=== PATIENT | female | born 1940 | race Caucasian/White ===

== ENCOUNTER 2016-06-21 21:06 | Inpatient (IN) | payer OTHER, BC ==
[2016-06-21 21:20] VITALS: BMI 27.8
--- NOTE | 2016-06-21 22:06 | PDOC ---
History of Present Illness - General History Source: Patient Exam Limitations: No Limitations - History of Present Illness Initial Comments: 06/21/16 22:44 The patient is a 76-year-old female with a significant past medical history of spinal stenosis, [place] (40 years ago), and presents to the emergency department with lower abdominal pain and nausea since this morning. She reports that the abdominal pain is located in the suprapubic region, and radiates to her lower back. She reports that she is unable to keep anything down due to the nausea and she feels bloated. She states that she took Aleve with no significant relief. She states she had 3 bowel movements today. The patient denies chest pain, shortness of breath, headache and dizziness. The patient denies fever, chills, vomit, diarrhea and constipation. The patient denies dysuria, frequency, urgency and hematuria. Allergies: NKDA Past surgical history: hysterectomy (1992), cholecystectomy Social History: Smoker, current status unknown PCP: Dr. Pisano Acls Nurse: Dr. Noland Associate Java Developer: Dr. Gerber <Tammy Mayer - Last Filed: 06/22/16 02:51> <Lacey Richter - Last Filed: 06/23/16 06:25> - General Chief Complaint: Pain, Acute Stated Complaint: ABDOMINAL/BACK PAIN Time Seen by Provider: 06/21/16 21:35 Past History <Tammy Mayer - Last Filed: 06/22/16 02:51> - Past Medical History Anemia: No Asthma: Yes (NO RECENT ATTACK) Cancer: No Cardiac Disorders: Yes (ASHD; [place]) CVA: No COPD: No CHF: No Dementia: No Diabetes: No GI Disorders: Yes (DIVERTICULOSIS; HIATAL HERNIA; GASTRITIS) Disorders: No HTN: Yes Hypercholesterolemia: Yes Liver Disease: No Seizures: No Thyroid Disease: No Other medical history: spinal stenosis - Surgical History Abdominal Surgery: No Appendectomy: No Cardiac Surgery: No Cholecystectomy: Yes Lung Surgery: No Neurologic Surgery: No Orthopedic Surgery: No - Psycho/Social/Smoking Cessation Hx Suicidal Ideation: No Smoking History: Smoker current status UNK Have you smoked in the past 12 months: No Hx Alcohol Use: Yes (SOCIALLY) Drug/Substance Use Hx: No Substance Use Type: Alcohol Hx Substance Use Treatment: No <Lacey Richter - Last Filed: 06/23/16 06:25> - Past Medical History Allergies/Adverse Reactions: Allergies Allergy/AdvReac Type Severity Reaction Status Date / Time No Known Allergies Allergy Verified 06/21/16 21:10 Home Medications: Ambulatory Orders Ezetimibe [Zetia] 10 mg PO HS 01/14/14 Montelukast Na [Singulair -] 10 mg PO HS 01/14/14 Multivitamins [Multivit ([facility] Formulary)] 1 tab PO DAILY 01/14/14 Naproxen Sodium/P-Ephed HCl [Aleve Cold and Sinus Caplet] 1 tab PO PRN PRN 01/14 Valsartan [Diovan] 80 mg PO DAILY 01/14/14 Ranitidine [Zantac -] 150 mg PO BID 12/06/14 Timolol [Betimol] 2 drop OU BID 06/21/16 Review of Systems - Review of Systems Able to Perform ROS?: Yes Comments:: 06/21/16 22:44 CONSTITUTIONAL: Absent: fever, chills, diaphoresis, generalized weakness, malaise, loss of appetite HEENT: Absent: rhinorrhea, nasal congestion, throat pain, throat swelling, difficulty swallowing, mouth swelling, ear pain, eye pain, visual changes CARDIOVASCULAR: Absent: chest pain, syncope, palpitations, irregular heart rate, lightheadedness , peripheral edema RESPIRATORY: Absent: cough, shortness of breath, dyspnea with exertion, orthopnea, wheezing, stridor, hemoptysis GASTROINTESTINAL: Present: (+) abdominal pain, (+) nausea Absent: abdominal distension, vomiting, diarrhea, constipation, melena, hematochezia GENITOURINARY: Absent: dysuria, frequency, urgency, hesitancy, hematuria, flank pain, genital pain MUSCULOSKELETAL: Present: (+) back pain Absent: myalgia, arthralgia, joint swelling SKIN: Absent: rash, itching, pallor HEMATOLOGIC/IMMUNOLOGIC: Absent: easy bleeding, easy bruising, lymphadenopathy, frequent infections ENDOCRINE: Absent: unexplained weight gain, unexplained weight loss, heat intolerance, cold intolerance NEUROLOGIC: Absent: headache, focal weakness or paresthesias, dizziness, unsteady gait, seizure, mental status changes, bladder or bowel incontinence PSYCHIATRIC: Absent: anxiety, depression, suicidal or homicidal ideation, hallucinations. <Tammy Mayer - Last Filed: 06/22/16 02:51> *Physical Exam - Vital Signs Last Vital Signs Temp Pulse Resp BP Pulse Ox 99 F 104 H 20 140/76 99 06/21/16 21:18 06/21/16 21:18 06/21/16 21:18 06/21/16 21:18 06/21/16 21:18 - Physical Exam Comments: 06/21/16 22:44 GENERAL: Well developed, well nourished. Awake and alert. No acute distress. HEENT: Normocephalic, atraumatic. PERRLA, EOMI. No conjunctival pallor. Sclera are non- icteric. Moist mucous membranes. Oropharynx is clear. NECK: Supple. Full ROM. No JVD. Carotid pulses 2+ and symmetric, without bruits. No thyromegaly. No lymphadenopathy. CARDIOVASCULAR: Regular rate and rhythm. No murmurs, rubs, or gallops. Distal pulses are 2+ and symmetric. PULMONARY: No evidence of respiratory distress. Lungs clear to auscultation bilaterally. No wheezing, rales or rhonchi. ABDOMINAL: (+) Tenderness to palpation, mild rebound and guarding. Soft. Non-distended. No organomegaly. Normoactive bowel sounds. MUSCULOSKELETAL Normal range of motion at all joints. No bony deformities or tenderness. No CVA tenderness. EXTREMITIES: No cyanosis. No clubbing. No edema. No calf tenderness. SKIN: Warm and dry. Normal capillary refill. No rashes. No jaundice. NEUROLOGICAL: Alert, awake, appropriate. Cranial nerves 2-12 intact. No deficits to light touch and temperature in face, upper extremities and lower extremities. No motor deficits in the in face, upper extremities and lower extremities. Normoreflexic in the upper and lower extremities. Normal speech. Toes are down- going bilaterally. Gait is normal without ataxia. PSYCHIATRIC: Cooperative. Good eye contact. Appropriate mood and affect. <Tammy Mayer - Last Filed: 06/22/16 02:51> - Vital Signs Last Vital Signs Temp Pulse Resp BP Pulse Ox 99 F 104 H 20 140/76 99 06/21/16 21:18 06/21/16 21:18 06/21/16 21:18 06/21/16 21:18 06/21/16 21:18 <Lacey Richter - Last Filed: 06/23/16 06:25> ED Treatment Course - LABORATORY CBC & Chemistry Diagram: 06/21/16 22:11 06/21/16 22:11 - ADDITIONAL ORDERS Additional order review: Laboratory Results 06/21/16 22:11 Urine Color Dkyellow Urine Appearance Slcloudy Urine pH 5.0 Ur Specific [place] 1.025 Urine Protein 1+ H Urine Glucose (UA) Negative Urine Ketones Trace H Urine Blood Negative Urine Nitrite Negative Urine Bilirubin Negative Urine Urobilinogen Negative Ur Leukocyte Esterase 1+ H Urine RBC 2 Urine WBC 7 Ur Epithelial Cells Many Urine Bacteria Rare Urine Mucus Moderate 06/21/16 22:11 RBC 4.28 MCV 97.7 H MCHC 34.2 RDW 13.6 MPV 8.3 Neutrophils % 93.6 H Lymphocytes % 2.8 L Monocytes % 3.0 L Eosinophils % 0.1 Basophils % 0.5 <Tammy Mayer - Last Filed: 06/22/16 02:51> - LABORATORY CBC & Chemistry Diagram: 06/21/16 22:11 06/21/16 22:11 <Lcaey Richter - Last Filed: 06/23/16 06:25> Medical Decision Making - Medical Decision Making 06/23/16 06:18 Pt comes with abdominal pain. She points to her lower abdomen, but she has diffuse pain. She jumps when I press on her upper quadrants. However, pt is afebrile and she is minimizing her symptoms, and she wants to go home, because she thinks that this is just the flu. However she is not coughing. Pt is able to ambulate in her room, but she is tender diffusely in the abdomen. She is jonking and laughing with me the scribe, the nurse and her daughtercarmen, who forced her to come to the ER for evaluation. I ordered a CT scan with IV contrast, however, pt cannotdrink the contrast. Her LFTs are elevated, so IU ordered a sonogram of the RUQ. Her sono is normal. Pt's CT scan was ordered with IV contrast, as she is not drinking the oral contrast. CT scan consistent with Sigmoid perforation/sigmoiditis. I spoke to the imaging concrete products dispatcher radiologist, and I notified ot's doctor MAREK pisano, who requested Dr Olivas of surgery to see the patient. I spoke to Dr. Olivas, who accepts the patient, even though he is not concrete products dispatcher. Pt was given antibiotics and pain meds and she was sent to a med surg bed. 06/23/16 06:24 Patient Name: Elizabeth Lopez THIS IS A PRELIMINARY REPORT FROM IMAGING PRODUCTION OPERATIONS INSPECTOR IMAGES: 42 EXAM DATE AND TIME: 2016-06-21 23:51:17.0 EXAM: ULTRASOUND ABDOMEN INCOMPLETE Heterogeneous liver echotexture. Gallbladder not seen, consistent with history of cholecystectomy in 2007. Unremarkable right kidney and visualized aorta. Pancreas not well seen. No biliary dilatation. THIS DOCUMENT HAS BEEN ELECTRONICALLY SIGNED 06/23/16 06:25 EXAM DATE AND TIME: 2016-06-22 01:41:57.0 EXAM: CT ABDOMEN AND PELVIS WITH CONTRAST Stranding in lower pelvis, including around sigmoid colon which contains many diverticula. 4.2 cm cuvilinear collection of air and fluid more superiorly in left lower quadrant. Findings suspicious for acute sigmoid diverticulitis complicated by perforation. (Alternatively, if hysterectomy has been performed recently, the pelvic fat stranding and free air/fluid could represent postoperative changes.) No bowel obstruction. Normal appendix. Unremarkable pancreas. Caliectasis and subcentimeter cortical hypodensity left kidney. Cholecystectomy. Minimal to moderate intrahepatic biliary dilatation, greater than usuall seen with physiologic postoperative biliary prominence. Tiny umbilical hernia containing fat. THIS DOCUMENT HAS BEEN ELECTRONICALLY SIGNED Diana Jenkins M.D. <Lacey Richter - Last Filed: 06/23/16 06:25> *DC/Admit/Observation/Transfer - Attestations Scribe Attestion: 06/21/16 22:45 Documentation prepared by Tammy Mayer, acting as director medical for Lacey Richter MD. <Tammy Mayer - Last Filed: 06/22/16 02:51> - Discharge Dispostion Admit: Yes <Lacey Richter - Last Filed: 06/23/16 06:25> Diagnosis at time of Disposition: Perforated sigmoid colon, Sigmoiditis - Referrals
[2016-06-21 22:23] LABS: MCH 33.4 pg (25.7-33.7); MCHC 34.2 g/dl (32.0-36.0); MEAN CELL VOLUME 97.7 fl (80-96); MEAN PLT VOLUME 8.3 fl (7.5-11.1); PLATELET COUNT 225 K/MM3 (134-434); RDW 13.6 % (11.6-15.6); URINE APPEARANCE SLCLOUDY; URINE BILIRUBIN NEGATIVE (NEGATIVE); URINE BLOOD NEGATIVE (NEGATIVE); URINE COLOR DKYELLOW; URINE GLUCOSE (UA) NEGATIVE (NEGATIVE); URINE KETONE TRACE (NEGATIVE); URINE NITRITE NEGATIVE (NEGATIVE); URINE UROBILINOGEN NEGATIVE E.U./dl (0.2-1.0); WHITE BLOOD COUNT 14.2 K/mm3 (4.0-10.0)
[2016-06-21] MEDS ORDERED: METOCLOPRAMIDE HCL INJECTION 10 MG/2 ML VIAL IVPB ONE (22:32)
[2016-06-21 22:33] LABS: URINE LEUK ESTERASE 1+ (NEGATIVE); URINE PROTEIN 1+ (NEGATIVE)
[2016-06-21 22:35] LABS: URINE BACTERIA RARE /hpf (NONE SEEN); URINE MUCUS MODERATE; URINE RBC 2 /hpf (0-3); URINE WBC 7 /hpf (3-5)
[2016-06-21] MEDS ORDERED: SODIUM CHLORIDE 0.9% 500 ML INFUS.BAG IV ONE (22:39)
[2016-06-21] MEDS ORDERED: morphine CARPU-JECT 2 MG/1 ML DISP.SYRIN IVPUSH ONE ×2 (22:44→23:37)
[2016-06-21] MEDS ORDERED: METOCLOPRAMIDE HCL INJECTION 10 MG/2 ML VIAL ONE (22:45)
[2016-06-21] MEDS ORDERED: ONDANSETRON 4 MG/2 ML VIAL ONE (22:45)
[2016-06-21] MEDS: ONDANSETRON 4 MG/2 ML VIAL IVPB PRN (22:50)
[2016-06-21 22:54] LABS: ALBUMIN 3.7 g/dl (3.4-5.0); ALK PHOS 119 U/L (45-117); ANION GAP 10 (8-16); BILIRUBIN,TOTAL 0.9 mg/dL (0.2-1.0); CALCIUM 8.7 mg/dL (8.5-10.1); CO2 25 mmol/L (21-32); CREATININE 0.8 mg/dL (0.55-1.02); GLUCOSE,RANDOM 115 mg/dL (74-106); SGPT/ALT 112 U/L (12-78); TOT PROT 6.5 g/dl (6.4-8.2)
[2016-06-21 22:58] LABS: SGOT/AST 173 U/L (15-37)
[2016-06-21] MEDS ORDERED: FAMOTIDINE 20 MG/50 ML IVPB 50 ML IVPB ONE ×2 (23:02→23:07)
[2016-06-21] MEDS ORDERED: MAG HYDROX/AL HYDROX/SIMETH 30 ML UNIT-DOSE CUP PO ONE (23:03)
[2016-06-21 23:05] LABS: INR 1.04 (0.82-1.09); PROTHROMBIN TIME (PATIENT) 11.4 SEC (9.98-11.88)
[2016-06-21] MEDS ORDERED: morphine CARPU-JECT 2 MG/1 ML DISP.SYRIN ONE (23:07)
[2016-06-21 23:17] LABS: SMUDGE CELLS MANY
[2016-06-22] MEDS ORDERED: morphine CARPU-JECT 2 MG/1 ML DISP.SYRIN ONE (00:50)
[2016-06-22] MEDS ORDERED: ONDANSETRON 4 MG/2 ML VIAL ONE (00:50)
[2016-06-22] MEDS: ONDANSETRON 4 MG/2 ML VIAL IVPB PRN ×4 (00:55→15:13)
[2016-06-22] MEDS ORDERED: PIPERACILLIN/TAZOB 3.375 GM 3.375 GM in DEXTROSE 5%-WATER - 50 ML IVPB ONE (02:34)
[2016-06-22] MEDS ORDERED: METRONIDAZOLE 500 MG PREMIXED 100 ML IVPB ONE (02:35)
[2016-06-22] MEDS ORDERED: ONDANSETRON 4 MG/2 ML VIAL IVPB PRN (02:49)
[2016-06-22] MEDS ORDERED: PIPERACILLIN/TAZOB 3.375 GM 50 ML IVPB ONE (03:07)
[2016-06-22] MEDS ORDERED: morphine CARPU-JECT 2 MG/1 ML DISP.SYRIN IVPUSH ONE (03:08)
[2016-06-22] MEDS: SODIUM CHLORIDE 1,000 ML IV SCH (04:30)
[2016-06-22] MEDS: morphine CARPU-JECT 2 MG/1 ML DISP.SYRIN IVPUSH PRN ×3 (06:46→15:13)
[2016-06-22] MEDS ORDERED: PIPERACILLIN/TAZOB 3.375 GM/50 ML PRE-DOCKED IVPB ONE (08:30)
[2016-06-22] MEDS: PANTOPRAZOLE SODIUM 40 MG/100 ML PRE-DOCKED IVPB SCH (09:54)
--- NOTE | 2016-06-22 09:56 | EKG ---
Test Reason : Blood Pressure : / mmHG Vent. Rate : 084 BPM Atrial Rate : 084 BPM P-R Int : 170 ms QRS Dur : 084 ms QT Int : 362 ms P-R-T Axes : 072 -38 044 degrees QTc Int : 427 ms NORMAL SINUS RHYTHM WITH SINUS ARRHYTHMIA LEFT AXIS DEVIATION PULMONARY DISEASE PATTERN NONSPECIFIC T WAVE ABNORMALITY ABNORMAL ECG WHEN COMPARED WITH ECG OF 24-JAN-2003 21:32, NONSPECIFIC T WAVE ABNORMALITY NO LONGER EVIDENT IN INFERIOR LEADS Confirmed by SHARATH JONES MD ([id number]) on 06/22/2016 9:56:12 AM Referred By: Confirmed By:SHARATH JONES MD
[2016-06-22] MEDS ORDERED: PANTOPRAZOLE SODIUM 40 MG in SODIUM CHLORIDE 100 ML IVPB SCH (10:00)
[2016-06-22] MEDS ORDERED: METRONIDAZOLE 500 MG PREMIXED 100 ML IVPB SCH (10:00)
[2016-06-22] MEDS ORDERED: TIMOLOL OU SCH (10:00)
[2016-06-22] MEDS: HEPARIN NA (PORCINE) 5,000 UNITS/ML 1ML VIAL SQ SCH ×2 (10:53→21:34)
--- NOTE | 2016-06-22 11:12 | CONSULT ---
- Consultation REQUESTING PROVIDER: Shantanu CONSULT REQUEST: I have been asked to surgically evaluate this patient for abdominal pain. PCP:Lg Pisano HISTORY OF PRESENT ILLNESS:CTSP w/lower abdominal pain which evolved over the last 24 hours; she came to the ER for evaluation; w/u reveals diverticulitis w/ localized perforation and/or abscess formation; she states she feels better since admission; she has colonoscopy in the recent past which she states was "normal ". PMHx: PSHx: RA Home Medications Medication Instructions Recorded Ezetimibe [Zetia] 10 mg PO HS 01/14/14 Montelukast Na [Singulair -] 10 mg PO HS 01/14/14 Multivitamins [Multivit ([facility] 1 tab PO DAILY 01/14/14 Formulary)] Naproxen Sodium/P-Ephed HCl [Aleve 1 tab PO PRN PRN 01/14/14 Cold and Sinus Caplet] Valsartan [Diovan] 80 mg PO DAILY 01/14/14 Ranitidine [Zantac -] 150 mg PO BID 12/06/14 Timolol [Betimol] 2 drop OU BID 06/21/16 Allergies Allergy/AdvReac Type Severity Reaction Status Date / Time No Known Allergies Allergy Verified 06/21/16 21:10 PHYSICAL EXAM: GENERAL: Awake, alert, and fully oriented, in no acute distress. ABDOMEN: Soft, LLQ tender, not distended, normoactive bowel sounds, ? voluntary guarding guarding, no rebound, no masses. No organomegaly. MUSCULOSKELETAL: Normal ROM at all joints. No bony deformities or tenderness. No CVA tenderness. UPPER EXTREMITIES: 2+ pulses, warm, well-perfused. No cyanosis. Cap refill <2 seconds. No peripheral edema. LOWER EXTREMITIES: 2+ pulses, warm, well-perfused. No calf tenderness. No peripheral edema. NEUROLOGICAL: Normal speech, gait not observed. PSYCH: Cooperative. Good eye contact. Appropriate mood and affect. SKIN: Warm, dry, normal turgor, no rashes or lesions noted. Vital Signs Temperature 100.8 F H 06/22/16 09:07 Pulse Rate 91 H 06/22/16 09:07 Respiratory Rate 20 06/22/16 09:07 Blood Pressure 123/66 06/22/16 09:07 O2 Sat by Pulse Oximetry (%) 100 06/22/16 04:14 Lab Results WBC 14.2 K/mm3 (4.0-10.0) H 06/21/16 22:11 RBC 4.28 M/mm3 (3.60-5.2) 06/21/16 22:11 Hgb 14.3 GM/dL (10.7-15.3) 06/21/16 22:11 Hct 41.8 % (32.4-45.2) 06/21/16 22:11 MCV 97.7 fl (80-96) H 06/21/16 22:11 MCHC 34.2 g/dl (32.0-36.0) 06/21/16 22:11 RDW 13.6 % (11.6-15.6) 06/21/16 22:11 Plt Count 225 K/MM3 (134-434) 06/21/16 22:11 Sodium 137 mmol/L (136-145) 06/21/16 22:11 Potassium 4.3 mmol/L (3.5-5.1) 06/21/16 22:11 Chloride 102 mmol/L (98-107) 06/21/16 22:11 Carbon Dioxide 25 mmol/L (21-32) 06/21/16 22:11 Anion Gap 10 (8-16) 06/21/16 22:11 BUN 17 mg/dL (7-18) 06/21/16 22:11 Creatinine 0.8 mg/dL (0.55-1.02) 06/21/16 22:11 Random Glucose 115 mg/dL (74-106) H 06/21/16 22:11 Calcium 8.7 mg/dL (8.5-10.1) 06/21/16 22:11 INR 1.04 (0.82-1.09) 06/21/16 22:11 CT scan reviewed IMP:diverticultis PLAN: NPO/IVF/IVABS/clinical f/u; reasons for surgery d/w the patient and her daughter. Kalpesh Olivas MD FACS Visit type - Case Type Case Type: ED Admission - Emergency Emergency Visit: Yes ED Registration Date: 06/22/16 Care time: The patient presented to the Emergency Department on the above date and was hospitalized for further evaluation of their emergent condition. - New patient This patient is new to me today: Yes Date on this admission: 06/22/16
--- NOTE | 2016-06-22 12:26 | CONSULT ---
Consult Consult Specialty:: infectious diseases Referred by:: Reason for Consultation:: abd pain,diverticulitis - History of Present Illness Chief Complaint: abd pain nausea History of Present Illness: 76-year-old female with a significant past medical history of spinal stenosis, [place] admitted with lower abdominal pain and nausea since this morning. She reports that the abdominal pain is located in the suprapubic region, and radiates to her lower back. She reports that she is unable to keep anything down due to the nausea and she feels bloated. She states that she took Aleve with no significant relief. She states she had 3 bowel movements today. according to the patient this all started after she ate a fish friday eveniong she thought she would improve but did not patient says since admission she has started to improve - History Source History Provided By: Patient Limitations to Obtaining History: No Limitations - Past Medical History ...: No - Alcohol/Substance Use Hx Alcohol Use: Yes (SOCIALLY) - Smoking History Smoking history: Never smoked Have you smoked in the past 12 months: No Home Medications - Allergies Allergies/Adverse Reactions: Allergies Allergy/AdvReac Type Severity Reaction Status Date / Time No Known Allergies Allergy Verified 06/21/16 21:10 - Home Medications Home Medications: Ambulatory Orders Ezetimibe [Zetia] 10 mg PO HS 01/14/14 Montelukast Na [Singulair -] 10 mg PO HS 01/14/14 Multivitamins [Multivit ([facility] Formulary)] 1 tab PO DAILY 01/14/14 Naproxen Sodium/P-Ephed HCl [Aleve Cold and Sinus Caplet] 1 tab PO PRN PRN 01/14 Valsartan [Diovan] 80 mg PO DAILY 01/14/14 Ranitidine [Zantac -] 150 mg PO BID 12/06/14 Timolol [Betimol] 2 drop OU BID 06/21/16 Review of Systems - Review of Systems Constitutional: reports: No Symptoms Eyes: reports: No Symptoms HENT: reports: No Symptoms Neck: reports: No Symptoms Cardiovascular: reports: No Symptoms Respiratory: reports: No Symptoms Gastrointestinal: reports: Abdominal Pain, Bloating, Nausea, Other Genitourinary: reports: No Symptoms Musculoskeletal: reports: No Symptoms Integumentary: reports: No Symptoms Neurological: reports: No Symptoms Endocrine: reports: No Symptoms Hematology/Lymphatic: reports: No Symptoms Psychiatric: reports: No Symptoms Physical Exam Vital Signs: Vital Signs Temperature 100.8 F H 06/22/16 09:07 Pulse Rate 91 H 06/22/16 09:07 Respiratory Rate 20 06/22/16 09:07 Blood Pressure 123/66 06/22/16 09:07 O2 Sat by Pulse Oximetry (%) 100 06/22/16 04:14 Constitutional: Yes: Well Nourished, Calm, Mild Distress Eyes: Yes: Conjunctiva Clear HENT: Yes: Atraumatic Neck: Yes: Supple, Trachea Midline Cardiovascular: Yes: Regular Rate and Rhythm Respiratory: Yes: Regular, CTA Bilaterally Gastrointestinal: Yes: Soft, Hypoactive Bowel Sounds, Tenderness (lower right and left quadrant), Vomiting, Other Musculoskeletal: Yes: WNL Extremities: Yes: WNL Integumentary: Yes: WNL Neurological: Yes: Alert, Oriented Psychiatric: Yes: Alert, Oriented Imaging - Results Chest X-ray: Report Reviewed, Image Reviewed Cat Scan: Report Reviewed, Image Reviewed Assessment/Plan colonic inflammation diverticulitis nausea abd pain plan keep patient npo abx hydration monitor wbc
[2016-06-22] MEDS: PIPERACILLIN/TAZOB 3.375 GM 50 ML IVPB SCH ×2 (13:00→17:37)
[2016-06-22] MEDS ORDERED: PIPERACILLIN/TAZOB 3.375 GM 50 ML IVPB SCH (18:00)
--- NOTE | 2016-06-22 21:53 | HP ---
Admitting History and Physical - Primary Care Physician PCP: Lg Pisano - Admission Chief Complaint: Abdominal pain History of Present Illness: 76-year-old female with a significant past medical history of hypertension, hyperlipidemia, CAD, spinal stenosis, admitted with lower abdominal pain and nausea since this morning. Denies associated vomiting, fever with chills, bleeding per rectum. Abdominal pain mostly in suprapubic area with radiation to the back. She is unable to keep anything down due to the nausea and she feels bloated. She states that she took Aleeve with no significant relief. She states she had 3 bowel movements today. Denies dysuria or hematuria. Denies chest pain, shortness of breath, palpitation or dizziness. Denies headache or blurring of vision. History Source: Patient Limitations to Obtaining History: No Limitations - Past Medical History Cardiovascular: Yes: CAD, HTN, Hyperlipdemia ...: No - Smoking History Smoking history: Never smoked Have you smoked in the past 12 months: No - Alcohol/Substance Use Hx Alcohol Use: Yes (SOCIALLY) Home Medications - Allergies Allergies/Adverse Reactions: Allergies Allergy/AdvReac Type Severity Reaction Status Date / Time No Known Allergies Allergy Verified 06/21/16 21:10 - Home Medications Home Medications: Ambulatory Orders Ezetimibe [Zetia] 10 mg PO HS 01/14/14 Montelukast Na [Singulair -] 10 mg PO HS 01/14/14 Multivitamins [Multivit ([facility] Formulary)] 1 tab PO DAILY 01/14/14 Naproxen Sodium/P-Ephed HCl [Aleve Cold and Sinus Caplet] 1 tab PO PRN PRN 01/14 Valsartan [Diovan] 80 mg PO DAILY 01/14/14 Ranitidine [Zantac -] 150 mg PO BID 12/06/14 Timolol [Betimol] 2 drop OU BID 06/21/16 Review of Systems - Review of Systems Constitutional: reports: Weakness Eyes: reports: No Symptoms HENT: reports: No Symptoms Neck: reports: No Symptoms Cardiovascular: reports: No Symptoms Respiratory: reports: No Symptoms Gastrointestinal: reports: Abdominal Pain, Nausea Genitourinary: reports: No Symptoms Musculoskeletal: reports: No Symptoms Integumentary: reports: No Symptoms Neurological: reports: No Symptoms Endocrine: reports: No Symptoms Hematology/Lymphatic: reports: No Symptoms Psychiatric: reports: No Symptoms Physical Examination Vital Signs: Vital Signs Temperature 98.9 F 06/22/16 14:00 Pulse Rate 92 H 06/22/16 14:00 Respiratory Rate 20 06/22/16 09:07 Blood Pressure 119/60 06/22/16 14:00 O2 Sat by Pulse Oximetry (%) 100 06/22/16 04:14 Constitutional: Yes: Anxious, Moderate Distress Eyes: Yes: Conjunctiva Clear, EOM Intact, PERRL HENT: Yes: Atraumatic, Normocephalic Neck: Yes: Supple, Trachea Midline Cardiovascular: Yes: Regular Rate and Rhythm Respiratory: Yes: Regular, CTA Bilaterally Gastrointestinal: Yes: Normal Bowel Sounds, Soft ...Rectal Exam: Yes: WNL, Deferred Musculoskeletal: Yes: WNL Extremities: Yes: WNL Edema: No Peripheral Pulses WNL: Yes Neurological: Yes: Alert, Oriented ...Motor Strength: WNL Psychiatric: Yes: Alert, Oriented Imaging - Results X-ray: Report Reviewed Cat Scan: Report Reviewed Problem List - Problems (1) Abscess of sigmoid colon due to diverticulitis Assessment/Plan: CT findings reviewed. NPO/IV fluids/IV abx/Pain management. Surgery consulted. Code(s): K57.20 - DVTRCLI OF LG INT W PERFORATION AND ABSCESS W/O BLEEDING (2) Hypertension Assessment/Plan: Reasonable control. Code(s): I10 - ESSENTIAL (PRIMARY) HYPERTENSION (3) Hyperlipidemia Code(s): E78.5 - HYPERLIPIDEMIA, UNSPECIFIED
[2016-06-23] MEDS: PIPERACILLIN/TAZOB 3.375 GM 50 ML IVPB SCH ×3 (01:44→17:23)
[2016-06-23] MEDS: ONDANSETRON 4 MG/2 ML VIAL IVPB PRN ×2 (01:50→06:45)
[2016-06-23] MEDS: morphine CARPU-JECT 2 MG/1 ML DISP.SYRIN IVPUSH PRN (06:23)
[2016-06-23 08:53] LABS: BASOPHIL 0.3 % (0-2.0); EOSINOPHIL 0.1 % (0-4.5); MCH 33.8 pg (25.7-33.7); MCHC 34.1 g/dl (32.0-36.0); MEAN CELL VOLUME 99.2 fl (80-96); MEAN PLT VOLUME 8.4 fl (7.5-11.1); NEUTROPHILS 91.8 % (42.8-82.8); PLATELET COUNT 157 K/MM3 (134-434); RDW 14.1 % (11.6-15.6); WHITE BLOOD COUNT 6.5 K/mm3 (4.0-10.0)
[2016-06-23 09:19] LABS: ALBUMIN 2.5 g/dl (3.4-5.0); ANION GAP 9 (8-16); CALCIUM 7.8 mg/dL (8.5-10.1); CO2 23 mmol/L (21-32); CREATININE 0.5 mg/dL (0.55-1.02); GLUCOSE,RANDOM 83 mg/dL (74-106); MAGNESIUM 1.9 mg/dL (1.8-2.4); SGOT/AST 29 U/L (15-37); SGPT/ALT 48 U/L (12-78)
[2016-06-23 09:24] LABS: ALK PHOS 73 U/L (45-117); BILIRUBIN,TOTAL 0.6 mg/dL (0.2-1.0)
[2016-06-23] MEDS ORDERED: morphine CARPU-JECT 4 MG/1 ML DISP.SYRIN IVPUSH PRN ×2 (10:17→10:56)
[2016-06-23] MEDS: HEPARIN NA (PORCINE) 5,000 UNITS/ML 1ML VIAL SQ SCH ×2 (10:21→21:16)
[2016-06-23] MEDS: PANTOPRAZOLE SODIUM 40 MG/100 ML PRE-DOCKED IVPB SCH (10:26)
[2016-06-23] MEDS ORDERED: morphine CARPU-JECT 2 MG/1 ML DISP.SYRIN IVPUSH ONE (10:30)
--- NOTE | 2016-06-23 10:53 | PN ---
Progress Note (short form) - Note Progress Note: Attending Surgeon Feels RLQ pain today; some nausea; having BM's. VSS AF; had 100.8 F at 9PM 06/22/16 abdomen-soft; slight RLQ ttp w/o evidence of an acute surgical abdomen WBC-wnl IMP:acute sigmoid diverticulitis PLAN:continue present tx.; doubt collection is amenable to IR drainage; will repeat CT scan tomorrow; d/w patient and family if surgery is needed on an urgent basis she will need a colonoscopy. A/a/u by the patient and her family who are at the bedside. Kalpesh Olivas MD FACS
[2016-06-23] MEDS ORDERED: HYDROmorphone HCL CARPU-JECT 2 MG/1 ML DISP.SYRIN IVPB PRN (13:14)
--- NOTE | 2016-06-23 13:25 | CON.GI ---
Consult Consult Specialty:: GASTROENTEROLOGY Reason for Consultation:: DIVERTICULITIS/RIGHT SIDED ABDOMINAL PAIN - History of Present Illness Chief Complaint: ABDOMINAL PAIN History of Present Illness: 76 YEAR OLD FEMALE WHO HAD A COLONOSCOPY WITH DR INGRAM YEARS AGO ADMITTED INTO [facility] WITH DIVERTICULITIS AND ABSCESS. PATIENT HAD CHILLS, NAUSEA AND LLQ PAIN ON FRIDAY. SHE THOUGHT IT WOULD GET BETTER AND CHANGED HER DIET . THE PAIN INCREASED AND SHE CAME TO THR ED. SHE HAD A BM TODAY NO FURTHER NAUSEA BUT COMPLAINS OF CONTINUED PAIN IN THE LLQ BUT NOW MORE IN THE RLQ. NO FEVER AT HOME AND HERE IN HOSPITAL Tmax 99.9. - History Source History Provided By: Patient Limitations to Obtaining History: No Limitations - Past Medical History DEAF INTERPRETER: Yes: Other (GLAUCOMA) Cardio/Vascular: No: AFIB, Aneurysm, Aortic Insufficiency, Aortic Stenosis, CAD , CHF, Deep Vein Thrombosis, HTN, Hyperlipdemia, MO, Mitral Insufficiency, Mitral Stenosis, Murmur, Pulmonary Hypertension, Other Pulmonary: No: Asthma, Bronchitis, Cancer, COPD, O2 Dependent, Pneumonia, Previously Intubated, Pulmonary Embolus, Pulmonary Fibrosis, Sleep Apnea, Other Gastrointestinal: Yes: Diverticulosis Hepatobiliary: Yes: Cholecystitis, Other (S/P LAPROSCOPIC CHOLECYSECTOMY) Renal/: No: Renal Failure, Renal Inusuff, BPH, Cancer, Hematuria, Hemodialysis , Neurogenic Bladder, Renal Calculi, UTI, Other Reproductive: Yes: Other (HAD VAGINAL HYSTERECTOMY YEARS AGO) ...: No Heme/Onc: No: Anemia, B12 Deficiency, Bleeding Disorder, Cancer, Current Chemotherapy, Current Radiation Therapy, Hemochromatosis, Hypercoaguable State, Myeloproliferative Synd, Sickle Cell Disease, Sickle Cell Trait, Thrombocytopenia, Other Musculoskeletal: No: Bursitis, Chronic low back pain, Hemiparesis, Hemiplegia, Osteoarthritis, Paraplegia, Other - Past Surgical History Past Surgical History: Yes: Cholecystectomy, Colonoscopy, Hysterectomy - Alcohol/Substance Use Hx Alcohol Use: Yes (SOCIALLY) - Smoking History Smoking history: Smoker current status UNK Have you smoked in the past 12 months: No Home Medications - Allergies Allergies/Adverse Reactions: Allergies Allergy/AdvReac Type Severity Reaction Status Date / Time No Known Allergies Allergy Verified 06/21/16 21:10 - Home Medications Home Medications: Ambulatory Orders Ezetimibe [Zetia] 10 mg PO HS 01/14/14 Montelukast Na [Singulair -] 10 mg PO HS 01/14/14 Multivitamins [Multivit ([facility] Formulary)] 1 tab PO DAILY 01/14/14 Naproxen Sodium/P-Ephed HCl [Aleve Cold and Sinus Caplet] 1 tab PO PRN PRN 01/14 Valsartan [Diovan] 80 mg PO DAILY 01/14/14 Ranitidine [Zantac -] 150 mg PO BID 12/06/14 Timolol [Betimol] 2 drop OU BID 06/21/16 Family Disease History - Family Disease History Family History: Unremarkable Review of Systems - Review of Systems Constitutional: reports: Chills Eyes: reports: Other (HISTORY OF GLAUCOMA) HENT: reports: No Symptoms Neck: reports: No Symptoms Cardiovascular: reports: No Symptoms Respiratory: reports: No Symptoms Gastrointestinal: reports: Abdominal Pain, Nausea, Vomiting Genitourinary: reports: No Symptoms Musculoskeletal: reports: No Symptoms Integumentary: reports: No Symptoms Neurological: reports: No Symptoms Endocrine: reports: No Symptoms Hematology/Lymphatic: reports: No Symptoms Psychiatric: reports: No Symptoms Physical Exam-GI Vital Signs: Vital Signs Temperature 98.6 F 06/23/16 08:00 Pulse Rate 90 06/23/16 08:00 Respiratory Rate 18 06/23/16 08:00 Blood Pressure 118/70 06/23/16 08:00 O2 Sat by Pulse Oximetry (%) 97 06/23/16 09:00 Constitutional: Yes: Obese Eyes: Yes: Conjunctiva Clear HENT: Yes: Atraumatic Cardiovascular: Yes: Regular Rate and Rhythm Respiratory: Yes: Regular Gastrointestinal Inspection: Yes: Distention ...Auscultate: Yes: Hypoactive Bowel Sounds ...Palpate: Yes: Tenderness (LLQ ACROSS MIDLINE TO THE RIGHT LOWER QUADRANT) Musculoskeletal: Yes: Back Pain (HISTORY OF SPINAL STENOSIS) Extremities: Yes: WNL Integumentary: Yes: WNL Neurological: Yes: Alert, Oriented Labs: CBC, BMP 06/23/16 07:30 06/23/16 07:30 INR, PTT INR 1.04 (0.82-1.09) 06/21/16 22:11 Laboratory Tests 06/21/16 06/21/16 06/21/16 22:11 22:11 22:11 WBC 14.2 H RBC Hgb Hct MCV MCHC RDW Plt Count MPV Neutrophils % 77.0 Lymphocytes % 2.0 L Monocytes % 1.0 L Band Neutrophils 20.0 H INR 1.04 Sodium 137 Potassium 4.3 Chloride 102 Carbon Dioxide 25 Anion Gap 10 BUN 17 Creatinine 0.8 Creat Clearance w eGFR > 60 Random Glucose Lactic Acid Calcium 8.7 Magnesium Total Bilirubin 0.9 AST 173 H ALT 112 H Alkaline Phosphatase 119 H B-Natriuretic Peptide Total Protein 6.5 Albumin 3.7 06/21/16 06/22/16 06/23/16 22:11 03:40 07:30 WBC 6.5 D RBC 3.46 L Hgb 11.7 D Hct 34.4 D MCV 99.2 H MCHC 34.1 RDW 14.1 Plt Count 157 D MPV 8.4 Neutrophils % 91.8 H Lymphocytes % 4.6 L D Monocytes % 3.2 L D Band Neutrophils INR Sodium Potassium Chloride Carbon Dioxide Anion Gap BUN Creatinine Creat Clearance w eGFR Random Glucose Lactic Acid 1.466 0.876 Calcium Magnesium Total Bilirubin AST ALT Alkaline Phosphatase B-Natriuretic Peptide Total Protein Albumin 06/23/16 07:30 WBC RBC Hgb Hct MCV MCHC RDW Plt Count MPV Neutrophils % Lymphocytes % Monocytes % Band Neutrophils INR Sodium 139 Potassium 3.8 Chloride 107 Carbon Dioxide 23 Anion Gap 9 BUN 18 Creatinine 0.5 L D Creat Clearance w eGFR > 60 Random Glucose 83 D Lactic Acid Calcium 7.8 L Magnesium 1.9 Total Bilirubin 0.6 D AST 29 D ALT 48 D Alkaline Phosphatase 73 D B-Natriuretic Peptide 824.37 H Total Protein 5.0 L D Albumin 2.5 L D Imaging - Results Cat Scan: Image Reviewed (REVIEWED WITH DR JAY) Problem List - Problems (1) Abscess of sigmoid colon due to diverticulitis Assessment/Plan: NPO IV ABX FOLLOW CBC/CRP, REPEAT CT SCAN DRAINAGE OF ABSCESS IF POSSIBLE TOMORROW CHANGE ANALGESIA TO DILAUDID RIGHT SIDED ABDOMINAL PAIN IS ACTUALLY FROM SIGMOID COLON AND INFLAMMATION THAT CROSSES THE MIDLINE SEEN BY SURGERY: THEY RECOMMENDED COLONOSCOPY (CONTRAINDICATED IN THE FACE OF DIVERTICULITIS) WOULD, HOWEVER, NEED ONE IN 6-8 WEEKS AFTER DIVERTICULITIS SUBSIDES. Code(s): K57.20 - DVTRCLI OF LG INT W PERFORATION AND ABSCESS W/O BLEEDING
--- NOTE | 2016-06-23 13:32 | PN ---
Progress Note, Physician History of Present Illness: patient had intense pain this morning now much better on palpation also patient is much better feeling of nauseousness - Current Medication List Current Medications: Active Medications Heparin Sodium (Porcine) (Heparin -) 5,000 unit SQ BID [facility] Last Admin: 06/23/16 10:21 Dose: 5,000 unit Hydromorphone HCl (Dilaudid Injection -) 2 mg IVPB Q4H PRN PRN Reason: PAIN Sodium Chloride (Normal Saline -) 1,000 mls @ 75 mls/hr IV ASDIR [facility] Last Admin: 06/22/16 04:30 Dose: 75 mls/hr Piperacillin Sod/Tazobactam Sod (Zosyn 3.375gm Ivpb (Pre-Docked)) 50 mls @ 100 mls/hr IVPB Q8H-IV RAVINDER PRN Reason: Protocol Last Admin: 06/23/16 10:22 Dose: 100 mls/hr Non-Formulary Medication (Timolol [Betimol]) 2 drop OU BID [facility] Ondansetron HCl (Zofran Injection) 4 mg IVPB Q4H PRN PRN Reason: NAUSEA AND/OR VOMITING Last Admin: 06/23/16 06:45 Dose: 4 mg Ondansetron HCl (Zofran Injection) 4 mg IVPB Q6H PRN PRN Reason: NAUSEA Pantoprazole Sodium (Protonix 40mg Ivpb (Pre-Docked)) 40 mg IVPB DAILY [facility] Last Admin: 06/23/16 10:26 Dose: 40 mg - Objective Vital Signs: Vital Signs Temperature 98.6 F 06/23/16 08:00 Pulse Rate 90 06/23/16 08:00 Respiratory Rate 18 06/23/16 08:00 Blood Pressure 118/70 06/23/16 08:00 O2 Sat by Pulse Oximetry (%) 97 06/23/16 09:00 Constitutional: Yes: Calm, Mild Distress Cardiovascular: Yes: Regular Rate and Rhythm Respiratory: Yes: Regular, CTA Bilaterally Gastrointestinal: Yes: Soft, Hypoactive Bowel Sounds, Tenderness (lower abd), Other (nausea). No: Tenderness, Rebound Musculoskeletal: Yes: WNL Extremities: Yes: WNL Integumentary: Yes: WNL Neurological: Yes: Alert, Oriented Labs: CBC, BMP 06/23/16 07:30 06/23/16 07:30 INR, PTT INR 1.04 (0.82-1.09) 06/21/16 22:11 - ....Imaging Cat Scan: Report Reviewed, Image Reviewed Assessment/Plan colonic inflammation diverticulitis nausea abd pain diverticular abscess plan keep patient npo abx hydration monitor wbc wbc has normalized after looking at the ct findings we will continue current course will need repeat ct in couple of days very close monitoring on wbc if it starts increasing repeat ct
[2016-06-23] MEDS: SODIUM CHLORIDE 1,000 ML IV SCH (13:36)
--- NOTE | 2016-06-23 23:22 | PN ---
Progress Note (short form) - Note Progress Note: C/O Worsening lower abdominal pain and nausea. She did not take pain medication yesterday. Received morphine 4 mg about 90 minutes back and is feeling slightly better. Afebrile History Source: Patient Limitations to Obtaining History: No Limitations - Past Medical History Cardiovascular: Yes: CAD, HTN, Hyperlipdemia ...: No - Smoking History Smoking history: Never smoked Have you smoked in the past 12 months: No - Alcohol/Substance Use Hx Alcohol Use: Yes (SOCIALLY) Home Medications - Allergies Allergies/Adverse Reactions: Allergies Allergy/AdvReac Type Severity Reaction Status Date / Time No Known Allergies Allergy Verified 06/21/16 21:10 - Home Medications Home Medications: Ambulatory Orders Ezetimibe [Zetia] 10 mg PO HS 01/14/14 Montelukast Na [Singulair -] 10 mg PO HS 01/14/14 Multivitamins [Multivit ([facility] Formulary)] 1 tab PO DAILY 01/14/14 Naproxen Sodium/P-Ephed HCl [Aleve Cold and Sinus Caplet] 1 tab PO PRN PRN 01/14 Valsartan [Diovan] 80 mg PO DAILY 01/14/14 Ranitidine [Zantac -] 150 mg PO BID 12/06/14 Timolol [Betimol] 2 drop OU BID 06/21/16 Review of Systems - Review of Systems Constitutional: reports: Weakness Eyes: reports: No Symptoms HENT: reports: No Symptoms Neck: reports: No Symptoms Cardiovascular: reports: No Symptoms Respiratory: reports: No Symptoms Gastrointestinal: reports: Abdominal Pain, Nausea Genitourinary: reports: No Symptoms Musculoskeletal: reports: No Symptoms Integumentary: reports: No Symptoms Neurological: reports: No Symptoms Endocrine: reports: No Symptoms Hematology/Lymphatic: reports: No Symptoms Psychiatric: reports: No Symptoms Physical Examination Vital Signs: Vital Signs Period Temp Pulse Resp BP Sys/Heredia Pulse Ox Last 24 Hr 98.3 F-99.2 F 77-90 18-20 106-124/59-70 96-97 Constitutional: Yes: Anxious, Moderate Distress Eyes: Yes: Conjunctiva Clear, EOM Intact, PERRL HENT: Yes: Atraumatic, Normocephalic Neck: Yes: Supple, Trachea Midline Cardiovascular: Yes: Regular Rate and Rhythm Respiratory: Yes: Regular, CTA Bilaterally Gastrointestinal: Yes: Normal Bowel Sounds, Soft ...Rectal Exam: Yes: WNL, Deferred Musculoskeletal: Yes: WNL Extremities: Yes: WNL Edema: No Peripheral Pulses WNL: Yes Neurological: Yes: Alert, Oriented ...Motor Strength: WNL Psychiatric: Yes: Alert, Oriented Imaging - Results X-ray: Report Reviewed Cat Scan: Report Reviewed CBC, BMP 06/23/16 07:30 06/23/16 07:30 Problem List - Problems (1) Abscess of sigmoid colon due to diverticulitis Assessment/Plan: Continue NPO/IV fluids/IV abx/Pain management. Surgery follow up appreciated. Code(s): K57.20 - DVTRCLI OF LG INT W PERFORATION AND ABSCESS W/O BLEEDING (2) Hypertension Assessment/Plan: Reasonable control. Code(s): I10 - ESSENTIAL (PRIMARY) HYPERTENSION (3) Hyperlipidemia Code(s): E78.5 - HYPERLIPIDEMIA, UNSPECIFIED Problem List - Problems (1) Abscess of sigmoid colon due to diverticulitis Code(s): K57.20 - DVTRCLI OF LG INT W PERFORATION AND ABSCESS W/O BLEEDING (2) Hypertension Code(s): I10 - ESSENTIAL (PRIMARY) HYPERTENSION (3) Hyperlipidemia Code(s): E78.5 - HYPERLIPIDEMIA, UNSPECIFIED
[2016-06-24] MEDS: PIPERACILLIN/TAZOB 3.375 GM 50 ML IVPB SCH ×3 (01:46→17:57)
[2016-06-24] MEDS: morphine CARPU-JECT 4 MG/1 ML DISP.SYRIN IVPB PRN ×6 (02:21→21:22)
[2016-06-24] MEDS: SODIUM CHLORIDE 1,000 ML IV SCH ×3 (02:25→18:24)
[2016-06-24] MEDS: ONDANSETRON 4 MG/2 ML VIAL IVPB PRN ×5 (03:31→22:26)
[2016-06-24 08:32] LABS: BASOPHIL 0.1 % (0-2.0); EOSINOPHIL 0.6 % (0-4.5); MCH 33.7 pg (25.7-33.7); MCHC 33.8 g/dl (32.0-36.0); MEAN CELL VOLUME 99.9 fl (80-96); MEAN PLT VOLUME 8.4 fl (7.5-11.1); NEUTROPHILS 87.8 % (42.8-82.8); PLATELET COUNT 190 K/MM3 (134-434); RDW 13.8 % (11.6-15.6); WHITE BLOOD COUNT 9.6 K/mm3 (4.0-10.0)
[2016-06-24 09:04] LABS: ALBUMIN 2.6 g/dl (3.4-5.0); ALK PHOS 119 U/L (45-117); ANION GAP 11 (8-16); BILIRUBIN,TOTAL 0.8 mg/dL (0.2-1.0); CALCIUM 8.1 mg/dL (8.5-10.1); CO2 24 mmol/L (21-32); CREATININE 0.5 mg/dL (0.55-1.02); GLUCOSE,RANDOM 79 mg/dL (74-106); SGOT/AST 47 U/L (15-37); SGPT/ALT 49 U/L (12-78); TOT PROT 5.3 g/dl (6.4-8.2)
--- NOTE | 2016-06-24 09:39 | PN ---
Progress Note (short form) - Note Progress Note: Surgery- Dr. Olivas Patient seen and examined with Dr. Olivas. Patient states she is having some discomfort after drinking oral contrast for her CT scan, but is doing ok. She has not had a BM today, but is passing some gas. She denies fever, chills, nausea, vomiting. Last Vital Signs Temp Pulse Resp BP Pulse Ox 97.9 F 85 18 129/77 96 06/24/16 06:10 06/24/16 06:10 06/24/16 06:10 06/24/16 06:10 06/23/16 21:00 CBC, BMP 06/24/16 06:15 06/24/16 06:15 Exam: Gen: NAD, pleasant and cooperative Abd: soft, tenderness to palpation left and right lower quadrants, no rebound or guarding Problem List - Problems (1) Abscess of sigmoid colon due to diverticulitis Assessment/Plan: Acute sigmoid diverticulitis Continue NPO, IVF Continue IV abx Follow-up CT scan final report Discussed with Dr. Olivas and agrees Code(s): K57.20 - DVTRCLI OF LG INT W PERFORATION AND ABSCESS W/O BLEEDING
[2016-06-24] MEDS: PANTOPRAZOLE SODIUM 40 MG/100 ML PRE-DOCKED IVPB SCH (09:48)
[2016-06-24] MEDS: HEPARIN NA (PORCINE) 5,000 UNITS/ML 1ML VIAL SQ SCH ×2 (09:48→21:20)
--- NOTE | 2016-06-24 12:08 | PN ---
GI Progress Note Subjective: GI NOte: CT Scan reveals that the abscess has gotten larger. Elizabeth Freire has significant discomfort and bloating but her WBC has been decreasing and she is afebrile. I discussed the case with Dr Schneider who informs that that the abscess is deep and not amenable to safe precutaneous drainage. I then discussed the case with Dr Olivas. Given that surgery will involve a temporary colostomy and the improving WBC and lack of fever the decision to operate will be deferred for 24 hours. I have discussed this plan with Elizabeth Freire including the need for a temporary colostomy and she is agreeable to such surgery if needed. - Objective Vital Signs: Vital Signs Temperature 97.6 F 06/24/16 10:00 Pulse Rate 74 06/24/16 10:00 Respiratory Rate 20 06/24/16 10:00 Blood Pressure 128/73 06/24/16 10:00 O2 Sat by Pulse Oximetry (%) 96 06/23/16 21:00 Laboratory Tests 06/21/16 06/21/16 06/23/16 22:11 22:11 07:30 WBC 14.2 H Hgb AST 173 H ALT 112 H Alkaline Phosphatase 119 H 73 D 06/24/16 06/24/16 06:15 06:15 WBC 9.6 D Hgb 11.7 AST 47 H D ALT 49 Alkaline Phosphatase 119 H D Constitutional: Anxious, Mild Distress Gastrointestinal Inspection: Yes: Distention ...Auscultate: Yes: Normoactive Bowel Sounds ...Palpate: Yes: Soft, Tenderness (LLQ) Edema: No Labs: CBC, BMP 06/24/16 06:15 06/24/16 06:15 INR, PTT INR 1.04 (0.82-1.09) 06/21/16 22:11 Assessment/Plan Sigmoid diverticulitis with abscess. Continue trial of IV antibiotics. If she fails to improve then will proceed with surgery.
--- NOTE | 2016-06-24 15:56 | SPA.PREOP ---
- PRE-OP NOTE Dx: Perforated sigmoid diverticulitis Planned Procedure: Pennie's Procedure Surgeon: Kalpesh Olivas Consent: To be obtained surgeon after risks, benefits and alternatives explained. Last Vital Signs Temp Pulse Resp BP Pulse Ox 99.3 F 76 18 132/76 96 06/24/16 14:13 06/24/16 14:13 06/24/16 14:13 06/24/16 14:13 06/23/16 21:00 Lab Results WBC 9.6 K/mm3 (4.0-10.0) D 06/24/16 06:15 RBC 3.47 M/mm3 (3.60-5.2) L 06/24/16 06:15 Hgb 11.7 GM/dL (10.7-15.3) 06/24/16 06:15 Hct 34.7 % (32.4-45.2) 06/24/16 06:15 MCV 99.9 fl (80-96) H 06/24/16 06:15 MCHC 33.8 g/dl (32.0-36.0) 06/24/16 06:15 RDW 13.8 % (11.6-15.6) 06/24/16 06:15 Plt Count 190 K/MM3 (134-434) D 06/24/16 06:15 Sodium 141 mmol/L (136-145) 06/24/16 06:15 Potassium 3.5 mmol/L (3.5-5.1) 06/24/16 06:15 Chloride 106 mmol/L (98-107) 06/24/16 06:15 Carbon Dioxide 24 mmol/L (21-32) 06/24/16 06:15 Anion Gap 11 (8-16) 06/24/16 06:15 BUN 23 mg/dL (7-18) H D 06/24/16 06:15 Creatinine 0.5 mg/dL (0.55-1.02) L 06/24/16 06:15 Random Glucose 79 mg/dL (74-106) 06/24/16 06:15 Calcium 8.1 mg/dL (8.5-10.1) L 06/24/16 06:15 Blood Type O POSITIVE 06/22/16 09:50 Antibody Screen Negative 06/22/16 09:50 INR 1.04 (0.82-1.09) 06/21/16 22:11 - ASSESSMENT/PLAN 1. Cont NPO 2. GI/DVT PPX 3. Medical optimization / clearance Visit type - Case Type Case Type: ED Admission - Emergency Emergency Visit: Yes ED Registration Date: 06/22/16 Care time: The patient presented to the Emergency Department on the above date and was hospitalized for further evaluation of their emergent condition. - New patient This patient is new to me today: Yes Date on this admission: 06/24/16
--- NOTE | 2016-06-24 17:06 | PN ---
Progress Note, Physician Chief Complaint: Ms Lopez says she is having severe abdominal pain. No cp, sob, n/v. - Current Medication List Current Medications: Active Medications Heparin Sodium (Porcine) (Heparin -) 5,000 unit SQ BID [facility] BY [facility] Last Admin: 06/24/16 09:48 Dose: 5,000 unit Sodium Chloride (Normal Saline -) 1,000 mls @ 75 mls/hr IV ASDIR REPLACED BY [facility] Last Admin: 06/24/16 02:25 Dose: 75 mls/hr Piperacillin Sod/Tazobactam Sod (Zosyn 3.375gm Ivpb (Pre-Docked)) 50 mls @ 100 mls/hr IVPB Q8H-IV RAVINDER PRN Reason: Protocol Last Admin: 06/24/16 10:41 Dose: 100 mls/hr Morphine Sulfate (Morphine Injection -) 4 mg IVPB Q3H PRN PRN Reason: PAIN Last Admin: 06/24/16 15:14 Dose: 4 mg Non-Formulary Medication (Timolol [Betimol]) 2 drop OU BID [facility] BY [facility] Ondansetron HCl (Zofran Injection) 4 mg IVPB Q4H PRN PRN Reason: NAUSEA AND/OR VOMITING Last Admin: 06/24/16 13:53 Dose: 4 mg Ondansetron HCl (Zofran Injection) 4 mg IVPB Q6H PRN PRN Reason: NAUSEA Pantoprazole Sodium (Protonix 40mg Ivpb (Pre-Docked)) 40 mg IVPB DAILY [facility] Last Admin: 06/24/16 09:48 Dose: 40 mg - Objective Vital Signs: Vital Signs Temperature 99.3 F 06/24/16 14:13 Pulse Rate 76 06/24/16 14:13 Respiratory Rate 18 06/24/16 14:13 Blood Pressure 132/76 06/24/16 14:13 O2 Sat by Pulse Oximetry (%) 96 06/23/16 21:00 Constitutional: Yes: Well Nourished, No Distress, Calm Cardiovascular: Yes: Regular Rate and Rhythm. No: Gallop, Murmur, Rub Respiratory: Yes: Regular, CTA Bilaterally. No: Rales, Rhonchi, Wheezes Gastrointestinal: Yes: Hypoactive Bowel Sounds, Tenderness. No: Distention Extremities: Yes: WNL Edema: No Labs: CBC, BMP 06/24/16 06:15 06/24/16 06:15 INR, PTT INR 1.04 (0.82-1.09) 06/21/16 22:11 Assessment/Plan (1) Abscess of sigmoid colon due to diverticulitis Assessment/Plan: -appreciate GI and general surgery -continue zosyn -planning for surgery tomorrow, patient agrees Code(s): K57.20 - DVTRCLI OF LG INT W PERFORATION AND ABSCESS W/O BLEEDING (2) Hypertension Assessment/Plan: -well controlled Code(s): I10 - ESSENTIAL (PRIMARY) HYPERTENSION (3) Hyperlipidemia -holding medications currently -restart on discharge Code(s): E78.5 - HYPERLIPIDEMIA, UNSPECIFIED
--- NOTE | 2016-06-24 18:31 | PN ---
Progress Note, Physician History of Present Illness: patient continues to have abd pain repeat ct scan done at the moment feels better - Current Medication List Current Medications: Active Medications Heparin Sodium (Porcine) (Heparin -) 5,000 unit SQ BID [facility] Last Admin: 06/24/16 09:48 Dose: 5,000 unit Sodium Chloride (Normal Saline -) 1,000 mls @ 75 mls/hr IV ASDIR [facility] Last Admin: 06/24/16 18:24 Dose: Not Given Piperacillin Sod/Tazobactam Sod (Zosyn 3.375gm Ivpb (Pre-Docked)) 50 mls @ 100 mls/hr IVPB Q8H-IV RAVINDER PRN Reason: Protocol Last Admin: 06/24/16 17:57 Dose: 100 mls/hr Morphine Sulfate (Morphine Injection -) 4 mg IVPB Q3H PRN PRN Reason: PAIN Last Admin: 06/24/16 18:20 Dose: 4 mg Non-Formulary Medication (Timolol [Betimol]) 2 drop OU BID [facility] Ondansetron HCl (Zofran Injection) 4 mg IVPB Q4H PRN PRN Reason: NAUSEA AND/OR VOMITING Last Admin: 06/24/16 17:56 Dose: 4 mg Ondansetron HCl (Zofran Injection) 4 mg IVPB Q6H PRN PRN Reason: NAUSEA Pantoprazole Sodium (Protonix 40mg Ivpb (Pre-Docked)) 40 mg IVPB DAILY [facility] Last Admin: 06/24/16 09:48 Dose: 40 mg - Objective Vital Signs: Vital Signs Temperature 99.3 F 06/24/16 14:13 Pulse Rate 76 06/24/16 14:13 Respiratory Rate 18 06/24/16 14:13 Blood Pressure 132/76 06/24/16 14:13 O2 Sat by Pulse Oximetry (%) 96 06/23/16 21:00 Constitutional: Yes: Calm, Moderate Distress, Obese HENT: Yes: Atraumatic Neck: Yes: Supple, Trachea Midline Cardiovascular: Yes: Regular Rate and Rhythm Respiratory: Yes: Regular, CTA Bilaterally Gastrointestinal: Yes: Tenderness, Tenderness, Epigastrium, Other. No: Tenderness, Rebound Musculoskeletal: Yes: WNL Extremities: Yes: WNL Neurological: Yes: Alert, Oriented Psychiatric: Yes: Alert, Oriented Labs: CBC, BMP 06/24/16 06:15 06/24/16 06:15 INR, PTT INR 1.04 (0.82-1.09) 06/21/16 22:11 - ....Imaging Cat Scan: Report Reviewed, Image Reviewed Assessment/Plan colonic inflammation diverticulitis nausea abd pain diverticular abscess diverticular perforation discussed wiht patient in detail that surgery is the choice now.repeat ct scan shows increasing collection also explained to the patient she might end up getting permanent colostomy plan keep patient npo abx hydration monitor wbc await for surgery to decide the final plan
[2016-06-25] MEDS: morphine CARPU-JECT 4 MG/1 ML DISP.SYRIN IVPB PRN ×4 (00:28→10:17)
[2016-06-25] MEDS: PIPERACILLIN/TAZOB 3.375 GM 50 ML IVPB SCH ×3 (01:42→17:41)
[2016-06-25] MEDS: ONDANSETRON 4 MG/2 ML VIAL IVPB PRN ×2 (02:48→06:41)
[2016-06-25] MEDS: SODIUM CHLORIDE 1,000 ML IV SCH ×3 (03:25→19:30)
[2016-06-25 07:55] LABS: BASOPHIL 0.2 % (0-2.0); EOSINOPHIL 0.5 % (0-4.5); MCH 33.1 pg (25.7-33.7); MCHC 33.2 g/dl (32.0-36.0); MEAN CELL VOLUME 99.9 fl (80-96); MEAN PLT VOLUME 8.1 fl (7.5-11.1); NEUTROPHILS 85.6 % (42.8-82.8); PLATELET COUNT 231 K/MM3 (134-434); RDW 13.9 % (11.6-15.6); WHITE BLOOD COUNT 10.7 K/mm3 (4.0-10.0)
[2016-06-25 08:17] LABS: ALBUMIN 2.5 g/dl (3.4-5.0); BILIRUBIN,DIRECT 0.2 mg/dL (0.0-0.2); C-REACTIVE PROTEIN 14.7 MG/DL (0.00-0.3); CALCIUM 8.3 mg/dL (8.5-10.1); COCKROFT - GAULT 129.37; CREATININE 0.4 mg/dL (0.55-1.02)
[2016-06-25 08:19] LABS: BILIRUBIN,TOTAL 0.5 mg/dL (0.2-1.0)
[2016-06-25] MEDS: HEPARIN NA (PORCINE) 5,000 UNITS/ML 1ML VIAL SQ SCH ×2 (09:37→21:41)
[2016-06-25] MEDS: PANTOPRAZOLE SODIUM 40 MG/100 ML PRE-DOCKED IVPB SCH (10:17)
[2016-06-25] MEDS ORDERED: SUCCINYLCHOLINE CHLORIDE 200 MG/10 ML VIAL ONE (10:57)
[2016-06-25] MEDS ORDERED: ROCURONIUM BROMIDE 50 MG/5 ML VIAL ONE (10:57)
[2016-06-25] MEDS ORDERED: PROPOFOL 20 ML ONE (10:57)
[2016-06-25] MEDS ORDERED: LIDOCAINE HCL/PF 2% SDV 5ML VIAL ONE (11:00)
[2016-06-25] MEDS ORDERED: DEXAMETHASONE SOD PHOSPHATE 4 MG/1 ML VIAL ONE (11:00)
[2016-06-25] MEDS ORDERED: MIDAZOLAM HCL 2 MG/2 ML SINGLE DOSE VIAL ONE (11:12)
[2016-06-25] MEDS ORDERED: HYDROmorphone HCL/PF 1 MG/ML VIAL (FOR PYXIS CHARGING ONLY) ONE (11:44)
[2016-06-25] MEDS ORDERED: ePHEDrine SULFATE 50 MG/1 ML AMPULE ONE (11:49)
[2016-06-25] MEDS ORDERED: DESFLURANE GAS 240 ML BOTTLE IH ONE (11:54)
[2016-06-25] MEDS ORDERED: GLYCOPYRROLATE 0.2 MG/1 ML VIAL ONE (13:43)
[2016-06-25] MEDS ORDERED: NEOSTIGMINE METHYLSULFATE 0.5 MG/ML - 10 ML MDV ONE (13:44)
[2016-06-25] MEDS ORDERED: KETOROLAC TROMETHAMINE 30 MG/1 ML VIAL ONE (13:52)
[2016-06-25] MEDS ORDERED: PROMETHAZINE HCL 25 MG/1 ML VIAL IVPUSH PRN ×2 (14:16→15:24)
[2016-06-25] MEDS ORDERED: HYDROmorphone HCL CARPU-JECT 1 MG/1 ML DISP.SYRIN IVPUSH PRN ×2 (14:16→15:24)
--- NOTE | 2016-06-25 14:16 | OP ---
Addendum entered and electronically signed by Miguel Chen PA 06/25/16 14:17: Pelvic abscess culture Original Note: Operative Note - Note: Operative Date: 06/25/16 Pre-Operative Diagnosis: Acute sigmoid diverticulitis with perforation Operation: Pennie's procedure, sigmoid resection with end-colostomy Post-Operative Diagnosis: Same as Pre-op Surgeon: Kalpesh Olivas Learning Coach: Miguel Chen Anesthesiologist/[employer]PERVISOR: Jr Ty Anesthesia: General Specimens Removed: sigmoid colon Estimated Blood Loss (mls): 100 Drains & Tubes with Location: JPx2 (rlq & llq) Drains, Volume Out (mls): 200 (madden) Fluid Volume Replaced (mls): 1,000 Operative Report Dictated: Yes
--- NOTE | 2016-06-25 14:17 | SURG ---
Surgery Tack Cleaner Note Tack Cleaner: Miguel Chen PA-C Date of Service: 06/25/16 Diagnosis: Acute sigmoid diverticulitis with perforation Procedure: Pennie's procedure, sigmoid resection with end-colostomy, pelvic abscess cavity culture I was present for the entirety of the operative procedure. For further detail, please refer to operative report. Visit type - Case Type Case Type: ED Admission - Emergency Emergency Visit: Yes ED Registration Date: 06/22/16 Care time: The patient presented to the Emergency Department on the above date and was hospitalized for further evaluation of their emergent condition.
[2016-06-25] MEDS ORDERED: HYDROmorphone HCL CARPU-JECT 2 MG/1 ML DISP.SYRIN ONE (14:23)
[2016-06-25] MEDS ORDERED: LACTATED RINGERS SOLUTION 1,000 ML IV SCH (14:30)
[2016-06-25] MEDS ORDERED: HYDROmorphone HCL CARPU-JECT 2 MG/1 ML DISP.SYRIN IVPUSH ONE ×4 (14:30→15:00)
[2016-06-25] MEDS ORDERED: HYDROmorphone *PCA* 10MG/50ML DISP.SYRIN PCA ONE ×2 (14:32→15:00)
--- NOTE | 2016-06-25 15:16 | PN ---
Progress Note, Physician Chief Complaint: I am seeing Ms Lopez s/p surgery and is still altered from anesthesia. She cannot give clear subjective, however she says she is having abdominal pain. Further subjective unobtainable currently. - Current Medication List Current Medications: Active Medications Heparin Sodium (Porcine) (Heparin -) 5,000 unit SQ BID [facility] Last Admin: 06/25/16 09:37 Dose: Not Given Hydromorphone HCl (Dilaudid Injection -) 0.5 mg IVPUSH [id number] PRN PRN Reason: PAIN Stop: 06/28/16 14:17 Hydromorphone HCl (Dilaudid Oil Lease Operator -) 0 mg DIRECTOR OF QUALITY IMPROVEMENT DIRECTOR OF QUALITY IMPROVEMENT [facility] PRN Reason: Protocol Stop: 07/02/16 14:54 Sodium Chloride (Normal Saline -) 1,000 mls @ 75 mls/hr IV ASDIR [facility] Last Admin: 06/25/16 06:41 Dose: 75 mls/hr Piperacillin Sod/Tazobactam Sod (Zosyn 3.375gm Ivpb (Pre-Docked)) 50 mls @ 100 mls/hr IVPB Q8H-IV [facility] PRN Reason: Protocol Last Admin: 06/25/16 09:37 Dose: 100 mls/hr Lactated Ringer's (Lactated Ringers Solution) 1,000 mls @ 75 mls/hr IV ASDIR [facility] Morphine Sulfate (Morphine Injection -) 4 mg IVPB Q3H PRN PRN Reason: PAIN Last Admin: 06/25/16 10:17 Dose: 4 mg Non-Formulary Medication (Timolol [Betimol]) 2 drop OU BID [facility] Ondansetron HCl (Zofran Injection) 4 mg IVPB Q4H PRN PRN Reason: NAUSEA AND/OR VOMITING Last Admin: 06/25/16 06:41 Dose: 4 mg Ondansetron HCl (Zofran Injection) 4 mg IVPB Q6H PRN PRN Reason: NAUSEA Pantoprazole Sodium (Protonix 40mg Ivpb (Pre-Docked)) 40 mg IVPB DAILY [facility] Last Admin: 06/25/16 10:17 Dose: 40 mg Promethazine HCl (Phenergan Injection -) 12.5 mg IVPUSH Q6H PRN PRN Reason: NAUSEA Stop: 06/25/16 20:17 - Objective Vital Signs: Vital Signs Temperature 97.5 F L 06/25/16 08:48 Pulse Rate 88 06/25/16 08:48 Respiratory Rate 18 06/25/16 10:00 Blood Pressure 150/99 06/25/16 08:48 O2 Sat by Pulse Oximetry (%) 96 06/25/16 10:00 Constitutional: Yes: Well Nourished, No Distress Cardiovascular: Yes: Regular Rate and Rhythm. No: Gallop, Murmur, Rub Respiratory: Yes: Regular, CTA Bilaterally. No: Rales, Rhonchi, Wheezes Gastrointestinal: Yes: Hypoactive Bowel Sounds, Tenderness. No: Distention Extremities: Yes: WNL Edema: No Labs: CBC, BMP 06/25/16 06:15 06/25/16 06:15 INR, PTT INR 1.04 (0.82-1.09) 06/21/16 22:11 Problem List - Problems (1) Abscess of sigmoid colon due to diverticulitis Code(s): K57.20 - DVTRCLI OF LG INT W PERFORATION AND ABSCESS W/O BLEEDING (2) Hyperlipidemia Code(s): E78.5 - HYPERLIPIDEMIA, UNSPECIFIED (3) Hypertension Code(s): I10 - ESSENTIAL (PRIMARY) HYPERTENSION (4) Sepsis Code(s): A41.9 - SEPSIS, UNSPECIFIED ORGANISM Assessment/Plan (1) Abscess of sigmoid colon due to diverticulitis Assessment/Plan: -s/p surgical intervention -continue zosyn per ID Code(s): K57.20 - DVTRCLI OF LG INT W PERFORATION AND ABSCESS W/O BLEEDING (2) Hypertension Assessment/Plan: -well controlled Code(s): I10 - ESSENTIAL (PRIMARY) HYPERTENSION (3) Hyperlipidemia -holding medications currently -restart on discharge Code(s): E78.5 - HYPERLIPIDEMIA, UNSPECIFIED (4) Sepsis -secondary to diverticulitis -present on admission -continue zosyn
[2016-06-25] MEDS ORDERED: morphine CARPU-JECT 4 MG/1 ML DISP.SYRIN IVPB PRN (15:24)
[2016-06-25] MEDS ORDERED: ONDANSETRON 4 MG/2 ML VIAL IVPB PRN (15:24)
[2016-06-25] MEDS: LACTATED RINGERS SOLUTION 1,000 ML IV SCH (17:42)
--- NOTE | 2016-06-25 19:31 | PN ---
Progress Note, Physician History of Present Illness: patient taken to surgery post op with colostomy tube - Current Medication List Current Medications: Active Medications Heparin Sodium (Porcine) (Heparin -) 5,000 unit SQ BID [facility] Hydromorphone HCl (Dilaudid Materials Planner/Production Planner -) 10 mg IT NETWORK ENGINEER IT NETWORK ENGINEER [facility] PRN Reason: Protocol Stop: 07/02/16 14:54 Lactated Ringer's (Lactated Ringers Solution) 1,000 mls @ 75 mls/hr IV ASDIR [facility] Last Admin: 06/25/16 17:42 Dose: 75 mls/hr Sodium Chloride (Normal Saline -) 1,000 mls @ 75 mls/hr IV ASDIR [facility] Piperacillin Sod/Tazobactam Sod (Zosyn 3.375gm Ivpb (Pre-Docked)) 50 mls @ 100 mls/hr IVPB Q8H-IV [facility] PRN Reason: Protocol Last Admin: 06/25/16 17:41 Dose: 100 mls/hr Morphine Sulfate (Morphine Injection -) 4 mg IVPB Q3H PRN PRN Reason: PAIN Ondansetron HCl (Zofran Injection) 4 mg IVPB Q4H PRN PRN Reason: NAUSEA AND/OR VOMITING Pantoprazole Sodium (Protonix 40mg Ivpb (Pre-Docked)) 40 mg IVPB DAILY [facility] Promethazine HCl (Phenergan Injection -) 12.5 mg IVPUSH Q6H PRN PRN Reason: NAUSEA Stop: 06/25/16 20:17 Timolol Maleate (Timoptic 0.5%) 2 drop OU BID [facility] - Objective Vital Signs: Vital Signs Temperature 97.8 F 06/25/16 17:57 Pulse Rate 76 06/25/16 19:27 Respiratory Rate 18 06/25/16 19:27 Blood Pressure 125/72 06/25/16 19:27 O2 Sat by Pulse Oximetry (%) 96 06/25/16 17:57 Constitutional: Yes: No Distress, Calm Cardiovascular: Yes: Regular Rate and Rhythm Respiratory: Yes: Regular, CTA Bilaterally Gastrointestinal: Yes: Hypoactive Bowel Sounds, Other (colostomy in place ng tube in place) Musculoskeletal: Yes: WNL Extremities: Yes: WNL Wound/Incision: Yes: Dressing Dry and Intact Neurological: Yes: Alert, Oriented Psychiatric: Yes: Alert, Oriented Labs: CBC, BMP 06/25/16 06:15 06/25/16 06:15 INR, PTT INR 1.04 (0.82-1.09) 06/21/16 22:11 Assessment/Plan colonic inflammation diverticulitis nausea abd pain diverticular abscess diverticular perforation plan keep patient npo abx hydration monitor wbc post op patient stable
[2016-06-25] MEDS: TIMOLOL 0.5% OPHTHALMIC SOL 5 ML BOTTLE OU SCH (21:41)
[2016-06-26] MEDS: PIPERACILLIN/TAZOB 3.375 GM 50 ML IVPB SCH ×3 (01:40→17:33)
[2016-06-26] MEDS: LACTATED RINGERS SOLUTION 1,000 ML IV SCH ×2 (04:42→23:45)
--- NOTE | 2016-06-26 08:26 | PN ---
Progress Note (short form) - Note Progress Note: Attending Surgeon POD #1 C/O incisional pain; using CARE SPECIALIST VSS AF abdo-dressing in place; ostomy viable; no function yet; JAKE drains serosanguinous UO-clear and adequate; NGT minimal; JAKE output noted; labs pending; OR cultures pending IMP: stable post op day #1 PLAN:Continue present tx.; OOB to chair; pulmonary toilet. Kalpesh Olivas MD FACS
[2016-06-26] MEDS: PANTOPRAZOLE SODIUM 40 MG/100 ML PRE-DOCKED IVPB SCH (10:56)
[2016-06-26] MEDS ORDERED: PT OWN MED DRAWER 7, Y5N ONE ×2 (11:20→21:32)
[2016-06-26] MEDS: TIMOLOL 0.5% OPHTHALMIC SOL 5 ML BOTTLE OU SCH ×2 (11:21→21:33)
[2016-06-26] MEDS: HEPARIN NA (PORCINE) 5,000 UNITS/ML 1ML VIAL SQ SCH ×3 (11:21→21:36)
[2016-06-26] MEDS: KCL 10 MEQ IVPB 100 ML IVPB SCH ×3 (11:26→14:17)
--- NOTE | 2016-06-26 11:46 | PN ---
Progress Note, Physician History of Present Illness: patient looks much better feels much better ng tube draining less - Current Medication List Current Medications: Active Medications Heparin Sodium (Porcine) (Heparin -) 5,000 unit SQ BID [facility] Last Admin: 06/26/16 11:21 Dose: 5,000 unit Hydromorphone HCl (Dilaudid Plush Brusher -) 10 mg JIG AND FIXTURE REPAIRER JIG AND FIXTURE REPAIRER [facility] PRN Reason: Protocol Stop: 07/02/16 14:54 Lactated Ringer's (Lactated Ringers Solution) 1,000 mls @ 75 mls/hr IV ASDIR [facility] Last Admin: 06/26/16 04:42 Dose: 75 mls/hr Sodium Chloride (Normal Saline -) 1,000 mls @ 75 mls/hr IV ASDIR [facility] Last Admin: 06/25/16 19:30 Dose: Not Given Piperacillin Sod/Tazobactam Sod (Zosyn 3.375gm Ivpb (Pre-Docked)) 50 mls @ 100 mls/hr IVPB Q8H-IV [facility] PRN Reason: Protocol Last Admin: 06/26/16 09:33 Dose: 100 mls/hr Potassium Chloride (Potassium Chloride 10 Meq Premix Ivpb -) 100 mls @ 100 mls/ hr IVPB Q60M [facility] Stop: 06/26/16 13:59 Last Admin: 06/26/16 11:26 Dose: 100 mls/hr Morphine Sulfate (Morphine Injection -) 4 mg IVPB Q3H PRN PRN Reason: PAIN Ondansetron HCl (Zofran Injection) 4 mg IVPB Q4H PRN PRN Reason: NAUSEA AND/OR VOMITING Pantoprazole Sodium (Protonix 40mg Ivpb (Pre-Docked)) 40 mg IVPB DAILY [facility] Last Admin: 06/26/16 10:56 Dose: 40 mg Timolol Maleate (Timoptic 0.5%) 2 drop OU BID [facility] Last Admin: 06/26/16 11:21 Dose: 2 drop - Objective Vital Signs: Vital Signs Temperature 97.4 F L 06/26/16 06:20 Pulse Rate 79 06/26/16 06:20 Respiratory Rate 20 06/26/16 06:20 Blood Pressure 139/69 06/26/16 06:20 O2 Sat by Pulse Oximetry (%) 97 06/25/16 22:00 Constitutional: Yes: Calm, Obese Cardiovascular: Yes: Regular Rate and Rhythm Respiratory: Yes: Regular, CTA Bilaterally Gastrointestinal: Yes: Soft, Other (absent bowel sounds colostomy ng in place) Musculoskeletal: Yes: WNL Extremities: Yes: WNL Wound/Incision: Yes: Dressing Dry and Intact Neurological: Yes: Alert, Oriented Psychiatric: Yes: Alert, Oriented Labs: CBC, BMP 06/25/16 06:15 06/25/16 06:15 INR, PTT INR 1.04 (0.82-1.09) 06/21/16 22:11 Assessment/Plan colonic inflammation diverticulitis nausea abd pain diverticular abscess diverticular perforation plan keep patient npo abx hydration monitor wbc
--- NOTE | 2016-06-26 14:42 | PN ---
Progress Note, Physician Chief Complaint: Ms Lopez says she is feeling much better today, says the pain is well controlled. No cp or sob. - Current Medication List Current Medications: Active Medications Heparin Sodium (Porcine) (Heparin -) 5,000 unit SQ BID [facility] Last Admin: 06/26/16 11:21 Dose: 5,000 unit Hydromorphone HCl (Dilaudid Instructor Dramatic Arts -) 10 mg PLANNER CHIEF PLANNER CHIEF [facility] PRN Reason: Protocol Stop: 07/02/16 14:54 Lactated Ringer's (Lactated Ringers Solution) 1,000 mls @ 75 mls/hr IV ASDIR [facility] Last Admin: 06/26/16 04:42 Dose: 75 mls/hr Sodium Chloride (Normal Saline -) 1,000 mls @ 75 mls/hr IV ASDIR [facility] Last Admin: 06/25/16 19:30 Dose: Not Given Piperacillin Sod/Tazobactam Sod (Zosyn 3.375gm Ivpb (Pre-Docked)) 50 mls @ 100 mls/hr IVPB Q8H-IV [facility] PRN Reason: Protocol Last Admin: 06/26/16 09:33 Dose: 100 mls/hr Morphine Sulfate (Morphine Injection -) 4 mg IVPB Q3H PRN PRN Reason: PAIN Ondansetron HCl (Zofran Injection) 4 mg IVPB Q4H PRN PRN Reason: NAUSEA AND/OR VOMITING Pantoprazole Sodium (Protonix 40mg Ivpb (Pre-Docked)) 40 mg IVPB DAILY [facility] Last Admin: 06/26/16 10:56 Dose: 40 mg Timolol Maleate (Timoptic 0.5%) 2 drop OU BID [facility] Last Admin: 06/26/16 11:21 Dose: 2 drop - Objective Vital Signs: Vital Signs Temperature 97.4 F L 06/26/16 14:00 Pulse Rate 86 06/26/16 14:00 Respiratory Rate 18 06/26/16 14:00 Blood Pressure 140/73 06/26/16 10:00 O2 Sat by Pulse Oximetry (%) 95 06/26/16 09:00 Constitutional: Yes: Well Nourished, No Distress, Calm Cardiovascular: Yes: Regular Rate and Rhythm. No: Gallop, Murmur, Rub Respiratory: Yes: Regular, CTA Bilaterally. No: Rales, Rhonchi, Wheezes Gastrointestinal: Yes: Normal Bowel Sounds, Soft, Tenderness, Other (NGT in place draining bilious fluid). No: Distention Extremities: Yes: WNL Edema: No Labs: CBC, BMP 06/25/16 06:15 06/25/16 06:15 INR, PTT INR 1.04 (0.82-1.09) 06/21/16 22:11 Problem List - Problems (1) Abscess of sigmoid colon due to diverticulitis Code(s): K57.20 - DVTRCLI OF LG INT W PERFORATION AND ABSCESS W/O BLEEDING (2) Hyperlipidemia Code(s): E78.5 - HYPERLIPIDEMIA, UNSPECIFIED (3) Hypertension Code(s): I10 - ESSENTIAL (PRIMARY) HYPERTENSION (4) Sepsis Code(s): A41.9 - SEPSIS, UNSPECIFIED ORGANISM Assessment/Plan (1) Abscess of sigmoid colon due to diverticulitis Assessment/Plan: -s/p surgical intervention -continue zosyn per ID -surgical note reviewed Code(s): K57.20 - DVTRCLI OF LG INT W PERFORATION AND ABSCESS W/O BLEEDING (2) Hypertension Assessment/Plan: -well controlled Code(s): I10 - ESSENTIAL (PRIMARY) HYPERTENSION (3) Hyperlipidemia -holding medications currently -restart on discharge Code(s): E78.5 - HYPERLIPIDEMIA, UNSPECIFIED (4) Sepsis -secondary to diverticulitis -present on admission -continue zosyn
[2016-06-26] MEDS: SODIUM CHLORIDE 1,000 ML IV SCH (17:24)
[2016-06-26] MEDS: HYDROmorphone *PCA* 10MG/50ML DISP.SYRIN PCA SCH (22:40)
[2016-06-27] MEDS: PIPERACILLIN/TAZOB 3.375 GM 50 ML IVPB SCH ×3 (01:23→18:12)
[2016-06-27 08:01] LABS: BASOPHIL 0.1 % (0-2.0); EOSINOPHIL 0.1 % (0-4.5); MCH 32.9 pg (25.7-33.7); MCHC 33.1 g/dl (32.0-36.0); MEAN CELL VOLUME 99.5 fl (80-96); MEAN PLT VOLUME 7.9 fl (7.5-11.1); NEUTROPHILS 83.8 % (42.8-82.8); PLATELET COUNT 293 K/MM3 (134-434); RDW 14.1 % (11.6-15.6); WHITE BLOOD COUNT 12.2 K/mm3 (4.0-10.0)
[2016-06-27] MEDS: HYDROmorphone *PCA* 10MG/50ML DISP.SYRIN PCA SCH (08:05)
[2016-06-27 08:38] LABS: CALCIUM 8.6 mg/dL (8.5-10.1); COCKROFT - GAULT 172.499; CREATININE 0.3 mg/dL (0.55-1.02); MAGNESIUM 2.2 mg/dL (1.8-2.4)
--- NOTE | 2016-06-27 09:03 | PN ---
Progress Note (short form) - Note Progress Note: POD #2 Alert. Doing well. Using her BUNDLE SORTER PRN. Hasn't been oob yet. Her madden cath was removed at 6AM to begin trial of void. Remains NPO. Per RN, no flatus or stool yet from ostomy. Denies n/v/f/c, CP or SOB. Last Vital Signs Temp Pulse Resp BP Pulse Ox 97.9 F 91 H 20 126/75 95 06/27/16 06:00 06/27/16 06:37 06/27/16 06:37 06/27/16 06:37 06/26/16 21:00 CBC, BMP 06/27/16 07:05 06/27/16 07:05 Gen: alert. nad. Nose: ngt 300mL overnight (bilious) Abd: midline incision open with few maxine. Bowel sounds absent in all quadrants. Deep fascia intact. Wound is clean. JAKE x 2 serosanguinous (minimal). Ostomy viable but not functioning yet LE: SCDs b/l <Miguel Chen P - Last Filed: 06/27/16 09:13> - Note Progress Note: Attending Surgeon POD # 2 Patient seen and evaluated; concur w/ assessment and plan as outlined. Kalpesh Olivas MD FACS <Kalpesh Olivas - Last Filed: 06/27/16 09:29> Problem List - Problems (1) Perforated sigmoid colon Assessment/Plan: POD #2 s/p Pennie's procedure, sigmoid resection with end-colostomy Trial of void in progress since 6AM OOB to chair, ambulate as tolerated Cont BUNDLE SORTER pain management Awaiting bowel function to resume before starting clear liquid diet Monitor WBC Cont ngt to lwcs (intermittent) IV ABX GI/DVT ppx Code(s): K63.1 - PERFORATION OF INTESTINE (NONTRAUMATIC) <Miguel Chen P - Last Filed: 06/27/16 09:13>
--- NOTE | 2016-06-27 09:11 | PN ---
Progress Note, Physician Chief Complaint: Pt. pain controlled with NUCLEAR PLANT TECHNICAL ADVISOR. No GA complaints. - Current Medication List Current Medications: Active Medications Heparin Sodium (Porcine) (Heparin -) 5,000 unit SQ BID [facility] [place] Last Admin: 06/26/16 21:36 Dose: 5,000 unit Hydromorphone HCl (Dilaudid Land Lease Information Clerk -) 10 mg NUCLEAR PLANT TECHNICAL ADVISOR NUCLEAR PLANT TECHNICAL ADVISOR [facility] [place] PRN Reason: Protocol Stop: 07/02/16 14:54 Last Admin: 06/27/16 08:05 Dose: Not Given Lactated Ringer's (Lactated Ringers Solution) 1,000 mls @ 75 mls/hr IV ASDIR [facility] Last Admin: 06/26/16 23:45 Dose: 75 mls/hr Sodium Chloride (Normal Saline -) 1,000 mls @ 75 mls/hr IV ASDIR [facility] Last Admin: 06/26/16 17:24 Dose: Not Given Piperacillin Sod/Tazobactam Sod (Zosyn 3.375gm Ivpb (Pre-Docked)) 50 mls @ 100 mls/hr IVPB Q8H-IV [facility] [place] PRN Reason: Protocol Last Admin: 06/27/16 01:23 Dose: 100 mls/hr Morphine Sulfate (Morphine Injection -) 4 mg IVPB Q3H PRN PRN Reason: PAIN Ondansetron HCl (Zofran Injection) 4 mg IVPB Q4H PRN PRN Reason: NAUSEA AND/OR VOMITING Pantoprazole Sodium (Protonix 40mg Ivpb (Pre-Docked)) 40 mg IVPB DAILY [facility] [place] Last Admin: 06/26/16 10:56 Dose: 40 mg Timolol Maleate (Timoptic 0.5%) 2 drop OU BID [facility] Last Admin: 06/26/16 21:33 Dose: 2 drop - Objective Vital Signs: Vital Signs Temperature 97.9 F 06/27/16 06:00 Pulse Rate 91 H 06/27/16 06:37 Respiratory Rate 20 06/27/16 06:37 Blood Pressure 126/75 06/27/16 06:37 O2 Sat by Pulse Oximetry (%) 95 06/26/16 21:00 Constitutional: Yes: Well Nourished, No Distress, Calm Musculoskeletal: Yes: WNL Neurological: Yes: WNL, Alert, Oriented ...Motor Strength: WNL Labs: CBC, BMP 06/27/16 07:05 06/27/16 07:05 INR, PTT INR 1.04 (0.82-1.09) 06/21/16 22:11 Assessment/Plan POD#1 s/p Pennie's procedure with sigmoid resection and end colostomy under GA. Doing well. Continue NUCLEAR PLANT TECHNICAL ADVISOR.
--- NOTE | 2016-06-27 09:13 | PN ---
Progress Note, Physician Chief Complaint: Pt. using STEAM BLOCKER for pain control, no complaints. - Current Medication List Current Medications: Active Medications Heparin Sodium (Porcine) (Heparin -) 5,000 unit SQ BID [facility] Last Admin: 06/26/16 21:36 Dose: 5,000 unit Hydromorphone HCl (Dilaudid Blocking Machine Operator -) 10 mg STEAM BLOCKER STEAM BLOCKER [facility] PRN Reason: Protocol Stop: 07/02/16 14:54 Last Admin: 06/27/16 08:05 Dose: Not Given Lactated Ringer's (Lactated Ringers Solution) 1,000 mls @ 75 mls/hr IV ASDIR [facility] Last Admin: 06/26/16 23:45 Dose: 75 mls/hr Sodium Chloride (Normal Saline -) 1,000 mls @ 75 mls/hr IV ASDIR [facility] Last Admin: 06/26/16 17:24 Dose: Not Given Piperacillin Sod/Tazobactam Sod (Zosyn 3.375gm Ivpb (Pre-Docked)) 50 mls @ 100 mls/hr IVPB Q8H-IV [facility] PRN Reason: Protocol Last Admin: 06/27/16 01:23 Dose: 100 mls/hr Morphine Sulfate (Morphine Injection -) 4 mg IVPB Q3H PRN PRN Reason: PAIN Ondansetron HCl (Zofran Injection) 4 mg IVPB Q4H PRN PRN Reason: NAUSEA AND/OR VOMITING Pantoprazole Sodium (Protonix 40mg Ivpb (Pre-Docked)) 40 mg IVPB DAILY [facility] Last Admin: 06/26/16 10:56 Dose: 40 mg Timolol Maleate (Timoptic 0.5%) 2 drop OU BID [facility] Last Admin: 06/26/16 21:33 Dose: 2 drop - Objective Vital Signs: Vital Signs Temperature 97.9 F 06/27/16 06:00 Pulse Rate 91 H 06/27/16 06:37 Respiratory Rate 20 06/27/16 06:37 Blood Pressure 126/75 06/27/16 06:37 O2 Sat by Pulse Oximetry (%) 95 06/26/16 21:00 Constitutional: Yes: Well Nourished, No Distress, Calm Musculoskeletal: Yes: WNL Neurological: Yes: WNL, Alert, Oriented ...Motor Strength: WNL Labs: CBC, BMP 06/27/16 07:05 06/27/16 07:05 INR, PTT INR 1.04 (0.82-1.09) 06/21/16 22:11 Assessment/Plan POD#1 s/p Pennie's procedure under GA with STEAM BLOCKER for pain control. Doing well. Continue STEAM BLOCKER.
[2016-06-27] MEDS ORDERED: PT OWN MED DRAWER 7, Y5N ONE (10:04)
[2016-06-27] MEDS: TIMOLOL 0.5% OPHTHALMIC SOL 5 ML BOTTLE OU SCH ×2 (10:10→21:28)
[2016-06-27] MEDS: HEPARIN NA (PORCINE) 5,000 UNITS/ML 1ML VIAL SQ SCH ×2 (10:10→21:28)
[2016-06-27] MEDS: PANTOPRAZOLE SODIUM 40 MG/100 ML PRE-DOCKED IVPB SCH (10:11)
--- NOTE | 2016-06-27 13:42 | PN ---
Progress Note, Physician History of Present Illness: patient looking better ng tube removed still no gi function - Current Medication List Current Medications: Active Medications Heparin Sodium (Porcine) (Heparin -) 5,000 unit SQ BID [facility] Last Admin: 06/27/16 10:10 Dose: 5,000 unit Hydromorphone HCl (Dilaudid Audio Video Mechanic -) 10 mg JOINERY FACTORY WORKER JOINERY FACTORY WORKER [facility] PRN Reason: Protocol Stop: 07/02/16 14:54 Last Admin: 06/27/16 08:05 Dose: Not Given Lactated Ringer's (Lactated Ringers Solution) 1,000 mls @ 75 mls/hr IV ASDIR [facility] Last Admin: 06/26/16 23:45 Dose: 75 mls/hr Sodium Chloride (Normal Saline -) 1,000 mls @ 75 mls/hr IV ASDIR [facility] Last Admin: 06/26/16 17:24 Dose: Not Given Piperacillin Sod/Tazobactam Sod (Zosyn 3.375gm Ivpb (Pre-Docked)) 50 mls @ 100 mls/hr IVPB Q8H-IV [facility] PRN Reason: Protocol Last Admin: 06/27/16 10:10 Dose: 100 mls/hr Morphine Sulfate (Morphine Injection -) 4 mg IVPB Q3H PRN PRN Reason: PAIN Ondansetron HCl (Zofran Injection) 4 mg IVPB Q4H PRN PRN Reason: NAUSEA AND/OR VOMITING Pantoprazole Sodium (Protonix 40mg Ivpb (Pre-Docked)) 40 mg IVPB DAILY [facility] Last Admin: 06/27/16 10:11 Dose: 40 mg Timolol Maleate (Timoptic 0.5%) 2 drop OU BID [facility] Last Admin: 06/27/16 10:10 Dose: 2 drop - Objective Vital Signs: Vital Signs Temperature 97.5 F L 06/27/16 13:33 Pulse Rate 85 06/27/16 13:33 Respiratory Rate 18 06/27/16 13:33 Blood Pressure 126/75 06/27/16 06:37 O2 Sat by Pulse Oximetry (%) 96 06/27/16 09:00 Constitutional: Yes: Calm, Mild Distress Cardiovascular: Yes: Regular Rate and Rhythm Respiratory: Yes: Regular, CTA Bilaterally Gastrointestinal: Yes: Other (absent bowel sound colostomy in place,no output yet drainage tubes in place) Musculoskeletal: Yes: WNL Extremities: Yes: WNL Wound/Incision: Yes: Dressing Dry and Intact Neurological: Yes: Alert, Oriented Labs: CBC, BMP 06/27/16 07:05 06/27/16 07:05 INR, PTT INR 1.04 (0.82-1.09) 06/21/16 22:11 Assessment/Plan colonic inflammation diverticulitis nausea abd pain diverticular abscess diverticular perforation plan continue current mgmt abx culture results noted ampicilin added
--- NOTE | 2016-06-27 16:08 | OP ---
DATE OF OPERATION: 06/25/2016 PREOPERATIVE DIAGNOSIS: Acute on chronic sigmoid diverticulitis with pelvic abscess formation. POSTOPERATIVE DIAGNOSIS: Acute on chronic sigmoid diverticulitis with pelvic abscess formation. PROCEDURE: Sigmoid colon resection, drainage of pelvic abscess, and colostomy (Pennie procedure). SURGEON: Kalpesh Olivas MD LOUVER MORTISER OPERATOR: Miguel Fleming PA-C ANESTHESIA: General. OPERATIVE FINDINGS: There was smoldering sigmoid diverticulitis with a redundant sigmoid colon and at least 2 pelvic abscesses. There was evidence of acute and chronic perforation in the cul-de-sac and sacral hollow. The rest of the findings were unremarkable. PROCEDURE: The patient was placed on the operating room table in the supine position. After the induction of general anesthesia and the placement of a Chang catheter and sequential compression devices on the patient's lower extremities, the abdomen was prepped with ChloraPrep and draped in sterile fashion. A time-out was taken. The peritoneal cavity was entered through a midline incision starting just above the umbilicus and going to the pubis. The previously noted findings were observed. The left lateral peritoneal reflection was identified and incised and the sigmoid colon mobilized. A point of transection proximally was identified and then the colon was divided there using the YANELIS stapling device. The mesentery was then scored and then sequentially divided using the LigaSure device and/or Kathy clamps and suture ligatures of 2-0 silk suture. Once a point distal was identified, the 2 areas of the pelvic abscesses were entered and drained, and the material sent for culture and sensitivity. At the upper rectum, a TA stapling device was placed and the sigmoid colon divided from the rectum and passed off the operative field and sent for pathological examination. The ends of the stump were tagged with 2-0 Prolene sutures. Copious irrigation was carried out to drain the residual pelvic abscesses until the affluent was clear. The mesentery proximally of the colon was divided so there would be adequate length to bring up the end colostomy. Next, an area was chosen midway between the umbilicus and the left anterior superior iliac spine where a site was created for the colostomy using electrocautery. The colon was then brought through the colostomy site. Again, copious irrigation was carried out and hemostasis checked for and noted to be good. The omentum was brought down into the pelvis and two 10-mm Dariusz-Kohli drains were placed on either side of the midline incision into the pelvic cavity. They were secured to the skin with 2-0 silk suture. Closure was then done in a single layer using number 1 looped PDS suture. The subcutaneous tissue was irrigated and the skin around the umbilicus was loosely reapproximated with surgical maxine. The wound was packed with iodoform gauze. The drains were connected to self-suction. Then the colostomy was matured using 3-0 Vicryl suture. An ostomy appliance and bag were placed, and the patient was aroused from general anesthesia and transferred to the Post Anesthesia Care Unit in stable condition awake and alert. ESTIMATED BLOOD LOSS: 150 mL. REPLACEMENTS: Crystalloid. DRAINS: Two 10-mm Dariusz-Kohli drains. SPECIMENS: Portion of sigmoid colon and culture and sensitivity of pelvic abscesses. I, Kalpesh Olivas, was physically present in the operating room from the time the patient was placed on the operating table until she was transferred to the Post Anesthesia Care Unit in [facility]. MD ZAC Reddy/[id number]
[2016-06-27] MEDS ORDERED: ALPRAZolam 0.25 MG TABLET PO PRN (16:10)
--- NOTE | 2016-06-27 16:17 | PN ---
Progress Note, Physician Chief Complaint: Ms Lopez says she is feeling better, but she is "very anxious" about her situation. Her pain is controlled. No cp, sob, n/v. Says she will get up but the thought of sitting in her chair gives her anxiety. - Current Medication List Current Medications: Active Medications Alprazolam (Xanax -) 0.25 mg PO Q8H PRN PRN Reason: ANXIETY Heparin Sodium (Porcine) (Heparin -) 5,000 unit SQ BID [facility] Last Admin: 06/27/16 10:10 Dose: 5,000 unit Hydromorphone HCl (Dilaudid Medical Typist -) 10 mg DIESEL DINKEY OPERATOR DIESEL DINKEY OPERATOR RAVINDER PRN Reason: Protocol Stop: 07/02/16 14:54 Last Admin: 06/27/16 08:05 Dose: Not Given Lactated Ringer's (Lactated Ringers Solution) 1,000 mls @ 75 mls/hr IV ASDIR [facility] Last Admin: 06/26/16 23:45 Dose: 75 mls/hr Sodium Chloride (Normal Saline -) 1,000 mls @ 75 mls/hr IV ASDIR [facility] Last Admin: 06/26/16 17:24 Dose: Not Given Piperacillin Sod/Tazobactam Sod (Zosyn 3.375gm Ivpb (Pre-Docked)) 50 mls @ 100 mls/hr IVPB Q8H-IV RAVINDER PRN Reason: Protocol Last Admin: 06/27/16 10:10 Dose: 100 mls/hr Morphine Sulfate (Morphine Injection -) 4 mg IVPB Q3H PRN PRN Reason: PAIN Ondansetron HCl (Zofran Injection) 4 mg IVPB Q4H PRN PRN Reason: NAUSEA AND/OR VOMITING Pantoprazole Sodium (Protonix 40mg Ivpb (Pre-Docked)) 40 mg IVPB DAILY [facility] Last Admin: 06/27/16 10:11 Dose: 40 mg Timolol Maleate (Timoptic 0.5%) 2 drop OU BID [facility] Last Admin: 06/27/16 10:10 Dose: 2 drop - Objective Vital Signs: Vital Signs Temperature 97.5 F L 06/27/16 13:33 Pulse Rate 85 06/27/16 13:33 Respiratory Rate 18 06/27/16 13:33 Blood Pressure 126/75 06/27/16 06:37 O2 Sat by Pulse Oximetry (%) 96 06/27/16 09:00 Constitutional: Yes: Well Nourished, Anxious Cardiovascular: Yes: Regular Rate and Rhythm. No: Gallop, Murmur, Rub Respiratory: Yes: Regular, CTA Bilaterally. No: Rales, Rhonchi, Wheezes Gastrointestinal: Yes: Hypoactive Bowel Sounds (but present), Tenderness. No: Distention Extremities: Yes: WNL Edema: No Labs: CBC, BMP 06/27/16 07:05 06/27/16 07:05 INR, PTT INR 1.04 (0.82-1.09) 06/21/16 22:11 Problem List - Problems (1) Abscess of sigmoid colon due to diverticulitis Code(s): K57.20 - DVTRCLI OF LG INT W PERFORATION AND ABSCESS W/O BLEEDING (2) Hyperlipidemia Code(s): E78.5 - HYPERLIPIDEMIA, UNSPECIFIED (3) Hypertension Code(s): I10 - ESSENTIAL (PRIMARY) HYPERTENSION (4) Sepsis Code(s): A41.9 - SEPSIS, UNSPECIFIED ORGANISM Qualifiers: Sepsis type: Escherichia coli Qualified Code(s): A41.51 - Sepsis due to Escherichia coli [E. coli] (5) Anxiety Code(s): F41.9 - ANXIETY DISORDER, UNSPECIFIED Assessment/Plan (1) Abscess of sigmoid colon due to diverticulitis Assessment/Plan: -s/p surgical intervention -continue zosyn per ID -surgical note reviewed -cultures reviewed Code(s): K57.20 - DVTRCLI OF LG INT W PERFORATION AND ABSCESS W/O BLEEDING (2) Hypertension Assessment/Plan: -well controlled Code(s): I10 - ESSENTIAL (PRIMARY) HYPERTENSION (3) Hyperlipidemia -holding medications currently -restart on discharge Code(s): E78.5 - HYPERLIPIDEMIA, UNSPECIFIED (4) Sepsis -secondary to diverticulitis -present on admission -continue zosyn (5) Anxiety -prn low dose ativan
[2016-06-27] MEDS ORDERED: POTASSIUM PHOSPHATE 20 MM in SODIUM CHLORIDE 250 ML IVPB ONE (16:41)
[2016-06-27] MEDS ORDERED: AMPICILLIN - 100 ML IVPB SCH (18:00)
[2016-06-28] MEDS: PIPERACILLIN/TAZOB 3.375 GM 50 ML IVPB SCH ×3 (01:05→18:00)
[2016-06-28] MEDS: HYDROmorphone *PCA* 10MG/50ML DISP.SYRIN PCA SCH ×2 (05:29→14:53)
[2016-06-28 07:51] LABS: MCH 33.4 pg (25.7-33.7); MCHC 33.5 g/dl (32.0-36.0); MEAN CELL VOLUME 99.4 fl (80-96); MEAN PLT VOLUME 7.9 fl (7.5-11.1); PLATELET COUNT 318 K/MM3 (134-434); RDW 14.2 % (11.6-15.6); WHITE BLOOD COUNT 11.8 K/mm3 (4.0-10.0)
[2016-06-28 07:53] LABS: CALCIUM 8.1 mg/dL (8.5-10.1); COCKROFT - GAULT 172.499; CREATININE 0.3 mg/dL (0.55-1.02); PHOSPHOROUS 2.9 mg/dL (2.5-4.9)
--- NOTE | 2016-06-28 08:16 | PN ---
Progress Note (short form) - Note Progress Note: POD #3 Alert. Doing well. Pain control via SOLE DYER. Hasn't been oob yet. Voiding spontaneously. Remains NPO. Still no ostomy function (indicated by lack of flatus or stool). Denies n/v/f/c, CP or SOB. Last Vital Signs Temp Pulse Resp BP Pulse Ox 97.7 F 81 20 142/78 96 06/28/16 06:00 06/28/16 06:00 06/28/16 06:00 06/28/16 06:00 06/27/16 20:24 CBC, BMP 06/28/16 06:20 06/28/16 06:20 PE Gen: alert. nad. Abd: midline incision open and packed. Wound is clean. Deep fascia intact. JAKE x2 on bulb suction (serosang). LLQ ostomy viable LE: SCDs b/l <Miguel Chen P - Last Filed: 06/28/16 08:24> - Note Progress Note: Attending Surgeon POD#3 Patient seen and evaluated; concur w/ a/p as outlined above; will start trial of clear liquid diet. Kalpesh Olivas MD FACS <Kalpesh Olivas N - Last Filed: 06/28/16 10:03> Problem List - Problems (1) Perforated sigmoid colon Assessment/Plan: POD #3 s/p Pennie's Procedure Physical therapy to help mobilize patient Incentive spirometer dc SOLE DYER and start PRN IV pain management Dressing changed on rounds CBC, BMP in AM GI/DVT ppx Awaiting bowel function to resume before starting liquid diet Code(s): K63.1 - PERFORATION OF INTESTINE (NONTRAUMATIC) <Miguel Chen P - Last Filed: 06/28/16 08:24>
--- NOTE | 2016-06-28 09:47 | PN ---
Progress Note (short form) - Note Progress Note: Anesthesiology, ENERGY ADMINISTRATOR note POD#4 S/P sigmoid resection.Pat is seen and examined. VSS. comfortable. Will start to take PO today, and ambulate. WillD/C ENERGY ADMINISTRATOR to continue with PO analgetics. Signing off.
[2016-06-28] MEDS: LACTATED RINGERS SOLUTION 1,000 ML IV SCH (09:51)
[2016-06-28] MEDS: PANTOPRAZOLE SODIUM 40 MG/100 ML PRE-DOCKED IVPB SCH (09:51)
[2016-06-28] MEDS: HEPARIN NA (PORCINE) 5,000 UNITS/ML 1ML VIAL SQ SCH ×2 (09:51→21:26)
[2016-06-28] MEDS: TIMOLOL 0.5% OPHTHALMIC SOL 5 ML BOTTLE OU SCH ×2 (09:58→21:26)
[2016-06-28 11:25] LABS: METAMYELOCYTE 1 % (0-2); PLATELET ESTIMATE ADEQUATE (NORMAL)
[2016-06-28] MEDS: ONDANSETRON 4 MG/2 ML VIAL IVPB PRN ×2 (12:36→23:41)
[2016-06-28] MEDS ORDERED: hydrALAZINE HCL 20 MG/ML VIAL IM PRN (12:48)
--- NOTE | 2016-06-28 12:48 | PN ---
Progress Note, Physician Chief Complaint: Ms Lopez remains very anxious, to the point it may interfere with her healing. Says that she was very worried when she had flatus in her bag today. Says she is scared to go to oral medications. Says getting up is making her anxious. Reassured her. - Current Medication List Current Medications: Active Medications Heparin Sodium (Porcine) (Heparin -) 5,000 unit SQ BID [facility] Last Admin: 06/28/16 09:51 Dose: 5,000 unit Hydralazine HCl (Apresoline Injection -) 5 mg IM Q6H PRN PRN Reason: HYPERTENSION Lactated Ringer's (Lactated Ringers Solution) 1,000 mls @ 75 mls/hr IV ASDIR [facility] Last Admin: 06/28/16 09:51 Dose: 75 mls/hr Piperacillin Sod/Tazobactam Sod (Zosyn 3.375gm Ivpb (Pre-Docked)) 50 mls @ 100 mls/hr IVPB Q8H-IV RAVINDER PRN Reason: Protocol Last Admin: 06/28/16 09:51 Dose: 100 mls/hr Lorazepam (Ativan Injection -) 0.5 mg IM Q8H PRN PRN Reason: ANXIETY Ondansetron HCl (Zofran Injection) 4 mg IVPB Q4H PRN PRN Reason: NAUSEA AND/OR VOMITING Last Admin: 06/28/16 12:36 Dose: 4 mg Pantoprazole Sodium (Protonix 40mg Ivpb (Pre-Docked)) 40 mg IVPB DAILY [facility] Last Admin: 06/28/16 09:51 Dose: 40 mg Timolol Maleate (Timoptic 0.5%) 2 drop OU BID [facility] Last Admin: 06/28/16 09:58 Dose: 2 drop - Objective Vital Signs: Vital Signs Temperature 98.5 F 06/28/16 11:29 Pulse Rate 83 06/28/16 11:29 Respiratory Rate 20 06/28/16 11:29 Blood Pressure 162/87 06/28/16 11:29 O2 Sat by Pulse Oximetry (%) 96 06/28/16 09:00 Constitutional: Yes: Well Nourished, No Distress, Calm Cardiovascular: Yes: Regular Rate and Rhythm. No: Gallop, Murmur, Rub Respiratory: Yes: Regular, CTA Bilaterally. No: Rales, Rhonchi, Wheezes Gastrointestinal: Yes: Soft, Hypoactive Bowel Sounds, Other (gas in colostomy). No: Distention Extremities: Yes: WNL Edema: No Labs: CBC, BMP 06/28/16 06:20 06/28/16 06:20 INR, PTT INR 1.04 (0.82-1.09) 06/21/16 22:11 Problem List - Problems (1) Abscess of sigmoid colon due to diverticulitis Code(s): K57.20 - DVTRCLI OF LG INT W PERFORATION AND ABSCESS W/O BLEEDING (2) Hyperlipidemia Code(s): E78.5 - HYPERLIPIDEMIA, UNSPECIFIED (3) Hypertension Code(s): I10 - ESSENTIAL (PRIMARY) HYPERTENSION (4) Sepsis Code(s): A41.9 - SEPSIS, UNSPECIFIED ORGANISM Qualifiers: Sepsis type: Escherichia coli Qualified Code(s): A41.51 - Sepsis due to Escherichia coli [E. coli] (5) Anxiety Code(s): F41.9 - ANXIETY DISORDER, UNSPECIFIED Assessment/Plan (1) Abscess of sigmoid colon due to diverticulitis Assessment/Plan: -s/p surgical intervention -continue zosyn per ID -case d/w surgery, advance diet per recommendations -cultures reviewed Code(s): K57.20 - DVTRCLI OF LG INT W PERFORATION AND ABSCESS W/O BLEEDING (2) Hypertension Assessment/Plan: -well controlled Code(s): I10 - ESSENTIAL (PRIMARY) HYPERTENSION (3) Hyperlipidemia -holding medications currently -restart on discharge Code(s): E78.5 - HYPERLIPIDEMIA, UNSPECIFIED (4) Sepsis -secondary to diverticulitis -present on admission -continue zosyn (5) Anxiety -prn low dose ativan -encouraged 35 minutes spent in care and reassurance of patient
[2016-06-28] MEDS: morphine CARPU-JECT 4 MG/1 ML DISP.SYRIN IVPUSH PRN ×3 (13:30→23:34)
--- NOTE | 2016-06-28 14:47 | PN ---
Progress Note, Physician History of Present Illness: starting to feel better colostomy bag working air in the bag - Current Medication List Current Medications: Active Medications Heparin Sodium (Porcine) (Heparin -) 5,000 unit SQ BID [facility] Last Admin: 06/28/16 09:51 Dose: 5,000 unit Hydralazine HCl (Apresoline Injection -) 5 mg IM Q6H PRN PRN Reason: HYPERTENSION Last Admin: 06/28/16 13:31 Dose: 5 mg Lactated Ringer's (Lactated Ringers Solution) 1,000 mls @ 75 mls/hr IV ASDIR RAVINDER Last Admin: 06/28/16 09:51 Dose: 75 mls/hr Piperacillin Sod/Tazobactam Sod (Zosyn 3.375gm Ivpb (Pre-Docked)) 50 mls @ 100 mls/hr IVPB Q8H-IV RAVINDER PRN Reason: Protocol Last Admin: 06/28/16 09:51 Dose: 100 mls/hr Lorazepam (Ativan Injection -) 0.5 mg IM Q8H PRN PRN Reason: ANXIETY Morphine Sulfate (Morphine Injection -) 4 mg IVPUSH Q4H PRN PRN Reason: PAIN Last Admin: 06/28/16 13:30 Dose: 4 mg Ondansetron HCl (Zofran Injection) 4 mg IVPB Q4H PRN PRN Reason: NAUSEA AND/OR VOMITING Last Admin: 06/28/16 12:36 Dose: 4 mg Pantoprazole Sodium (Protonix 40mg Ivpb (Pre-Docked)) 40 mg IVPB DAILY [facility] Last Admin: 06/28/16 09:51 Dose: 40 mg Timolol Maleate (Timoptic 0.5%) 2 drop OU BID [facility] Last Admin: 06/28/16 09:58 Dose: 2 drop - Objective Vital Signs: Vital Signs Temperature 98.1 F 06/28/16 14:00 Pulse Rate 99 H 06/28/16 14:00 Respiratory Rate 20 06/28/16 14:00 Blood Pressure 155/78 06/28/16 14:00 O2 Sat by Pulse Oximetry (%) 96 06/28/16 09:00 Constitutional: Yes: Calm, Mild Distress Eyes: Yes: Conjunctiva Clear Cardiovascular: Yes: Regular Rate and Rhythm Respiratory: Yes: Regular, CTA Bilaterally Gastrointestinal: Yes: Soft, Hypoactive Bowel Sounds, Other (colostomy tube in place draiange tube in place) Musculoskeletal: Yes: WNL Extremities: Yes: WNL Integumentary: Yes: WNL Neurological: Yes: Alert, Oriented Psychiatric: Yes: Alert, Oriented Labs: CBC, BMP 06/28/16 06:20 06/28/16 06:20 INR, PTT INR 1.04 (0.82-1.09) 06/21/16 22:11 Assessment/Plan colonic inflammation diverticulitis nausea abd pain diverticular abscess diverticular perforation plan continue current mgmt abx culture results noted gottlieb top amp
[2016-06-28] MEDS: LORAZEPAM CARPU-JECT 2 MG/ML DISP.SYRIN IM PRN (17:45)
[2016-06-28] MEDS ORDERED: PT OWN MED DRAWER 7, Y5N ONE (21:18)
[2016-06-29] MEDS: PIPERACILLIN/TAZOB 3.375 GM 50 ML IVPB SCH ×3 (02:05→17:21)
[2016-06-29] MEDS: LACTATED RINGERS SOLUTION 1,000 ML IV SCH ×3 (06:25→19:54)
[2016-06-29] MEDS: morphine CARPU-JECT 4 MG/1 ML DISP.SYRIN IVPUSH PRN ×4 (07:54→20:09)
[2016-06-29] MEDS: ONDANSETRON 4 MG/2 ML VIAL IVPB PRN ×4 (07:54→20:08)
[2016-06-29 08:22] LABS: MCH 33.1 pg (25.7-33.7); MCHC 33.1 g/dl (32.0-36.0); MEAN CELL VOLUME 99.8 fl (80-96); MEAN PLT VOLUME 7.8 fl (7.5-11.1); PLATELET COUNT 347 K/MM3 (134-434); WHITE BLOOD COUNT 12.2 K/mm3 (4.0-10.0)
[2016-06-29 08:55] LABS: CALCIUM 8.3 mg/dL (8.5-10.1); COCKROFT - GAULT 258.7485; CREATININE 0.2 mg/dL (0.55-1.02); MAGNESIUM 2.1 mg/dL (1.8-2.4); PHOSPHOROUS 2.7 mg/dL (2.5-4.9)
[2016-06-29] MEDS: LORAZEPAM CARPU-JECT 2 MG/ML DISP.SYRIN IM PRN ×2 (08:59→22:40)
[2016-06-29] MEDS: TIMOLOL 0.5% OPHTHALMIC SOL 5 ML BOTTLE OU SCH ×2 (09:34→22:39)
[2016-06-29 09:55] LABS: PLATELET COMMENT2 NO CLOTTING DETECTED; PLATELET ESTIMATE ADEQUATE (NORMAL)
[2016-06-29 09:56] LABS: ANISOCYTOSIS 1+; HYPOCHROMIA 1+
[2016-06-29] MEDS: HEPARIN NA (PORCINE) 5,000 UNITS/ML 1ML VIAL SQ SCH ×2 (10:25→22:40)
[2016-06-29] MEDS: PANTOPRAZOLE SODIUM 40 MG/100 ML PRE-DOCKED IVPB SCH (10:25)
--- NOTE | 2016-06-29 11:25 | PN ---
Progress Note (short form) - Note Progress Note: Attending Surgeon POD #4 Various complaints; very anxious VSS AF abdo-wound care in progress; incision clean and healing well by secondary intention; ostomy viable w/flatus in bag; JAKE's serous w/ minimal output labs noted IMP:improving PLAN: OOB/continue IVABS/wound care/advance to clear liquid diet. Kalpesh Olivas MD FACS
--- NOTE | 2016-06-29 12:50 | PN ---
Progress Note, Physician Chief Complaint: C/O Diffuse abd pain able to tolerate Po passing flatus History of Present Illness: 76-year-old female with a significant past medical history of hypertension, hyperlipidemia, CAD, spinal stenosis, admitted with lower abdominal pain and nause - Current Medication List Current Medications: Active Medications Heparin Sodium (Porcine) (Heparin -) 5,000 unit SQ BID [facility] Last Admin: 06/29/16 10:25 Dose: 5,000 unit Hydralazine HCl (Apresoline Injection -) 5 mg IM Q6H PRN PRN Reason: HYPERTENSION Last Admin: 06/28/16 13:31 Dose: 5 mg Lactated Ringer's (Lactated Ringers Solution) 1,000 mls @ 75 mls/hr IV ASDIR RAVINDER Last Admin: 06/29/16 06:25 Dose: 75 mls/hr Piperacillin Sod/Tazobactam Sod (Zosyn 3.375gm Ivpb (Pre-Docked)) 50 mls @ 100 mls/hr IVPB Q8H-IV RAVINDER PRN Reason: Protocol Last Admin: 06/29/16 09:33 Dose: 100 mls/hr Lorazepam (Ativan Injection -) 0.5 mg IM Q8H PRN PRN Reason: ANXIETY Last Admin: 06/29/16 08:59 Dose: 0.5 mg Morphine Sulfate (Morphine Injection -) 4 mg IVPUSH Q4H PRN PRN Reason: PAIN Last Admin: 06/29/16 12:05 Dose: 4 mg Ondansetron HCl (Zofran Injection) 4 mg IVPB Q4H PRN PRN Reason: NAUSEA AND/OR VOMITING Last Admin: 06/29/16 12:05 Dose: 4 mg Pantoprazole Sodium (Protonix 40mg Ivpb (Pre-Docked)) 40 mg IVPB DAILY [facility] Last Admin: 06/29/16 10:25 Dose: 40 mg Timolol Maleate (Timoptic 0.5%) 2 drop OU BID [facility] Last Admin: 06/29/16 09:34 Dose: 2 drop - Objective Vital Signs: Vital Signs Temperature 97.7 F 06/29/16 10:00 Pulse Rate 93 H 06/29/16 10:00 Respiratory Rate 20 06/29/16 10:00 Blood Pressure 124/85 06/29/16 10:00 O2 Sat by Pulse Oximetry (%) 98 06/29/16 09:00 Constitutional: Yes: Well Nourished, No Distress, Calm Eyes: Yes: WNL, Conjunctiva Clear, EOM Intact HENT: Yes: WNL, Atraumatic, Normocephalic Neck: Yes: WNL, Supple, Trachea Midline Cardiovascular: Yes: WNL Respiratory: Yes: WNL, Regular, CTA Bilaterally Gastrointestinal: Yes: WNL, Normal Bowel Sounds, Soft, Tenderness (Mild Diffuse) , Other (S/P Surgery Colostomy at place) ...Rectal Exam: Yes: Deferred Genitourinary: Yes: WNL, Anuria. No: Bladder Distention Musculoskeletal: Yes: WNL. No: Back Pain, Joint Stiffness Extremities: Yes: WNL. No: Calf Tenderness Edema: No Peripheral Pulses WNL: No Wound/Incision: Yes: Other (Surgical wound gap Colostomy at place) Neurological: Yes: WNL, Alert, Oriented ...Motor Strength: WNL, LUE, LLE, RUE, RLE Psychiatric: Yes: WNL, Alert, Oriented Labs: CBC, BMP 06/29/16 08:15 06/29/16 08:15 INR, PTT INR 1.04 (0.82-1.09) 06/21/16 22:11 Problem List - Problems (1) Abscess of sigmoid colon due to diverticulitis Assessment/Plan: S/P Surgery on IV Zosyn at present afebrile tolerating PO Code(s): K57.20 - DVTRCLI OF LG INT W PERFORATION AND ABSCESS W/O BLEEDING (2) Anxiety Assessment/Plan: At present comfortable, cont all home meds Code(s): F41.9 - ANXIETY DISORDER, UNSPECIFIED (3) Hypertension Assessment/Plan: Well controlled cont home meds Code(s): I10 - ESSENTIAL (PRIMARY) HYPERTENSION (4) Hyperlipidemia Assessment/Plan: Cont all home medications. Code(s): E78.5 - HYPERLIPIDEMIA, UNSPECIFIED
--- NOTE | 2016-06-29 14:32 | PN ---
Progress Note, Physician History of Present Illness: starting to feel better patient tolerated by mouth colostomy bag working - Current Medication List Current Medications: Active Medications Heparin Sodium (Porcine) (Heparin -) 5,000 unit SQ BID [facility] Last Admin: 06/29/16 10:25 Dose: 5,000 unit Hydralazine HCl (Apresoline Injection -) 5 mg IM Q6H PRN PRN Reason: HYPERTENSION Last Admin: 06/28/16 13:31 Dose: 5 mg Lactated Ringer's (Lactated Ringers Solution) 1,000 mls @ 75 mls/hr IV ASDIR [facility] Last Admin: 06/29/16 06:25 Dose: 75 mls/hr Piperacillin Sod/Tazobactam Sod (Zosyn 3.375gm Ivpb (Pre-Docked)) 50 mls @ 100 mls/hr IVPB Q8H-IV RAVINDER PRN Reason: Protocol Last Admin: 06/29/16 09:33 Dose: 100 mls/hr Lorazepam (Ativan Injection -) 0.5 mg IM Q8H PRN PRN Reason: ANXIETY Last Admin: 06/29/16 08:59 Dose: 0.5 mg Morphine Sulfate (Morphine Injection -) 4 mg IVPUSH Q4H PRN PRN Reason: PAIN Last Admin: 06/29/16 12:05 Dose: 4 mg Ondansetron HCl (Zofran Injection) 4 mg IVPB Q4H PRN PRN Reason: NAUSEA AND/OR VOMITING Last Admin: 06/29/16 12:05 Dose: 4 mg Pantoprazole Sodium (Protonix 40mg Ivpb (Pre-Docked)) 40 mg IVPB DAILY [facility] Last Admin: 06/29/16 10:25 Dose: 40 mg Timolol Maleate (Timoptic 0.5%) 2 drop OU BID [facility] Last Admin: 06/29/16 09:34 Dose: 2 drop - Objective Vital Signs: Vital Signs Temperature 97.7 F 06/29/16 10:00 Pulse Rate 93 H 06/29/16 10:00 Respiratory Rate 20 06/29/16 10:00 Blood Pressure 124/85 06/29/16 10:00 O2 Sat by Pulse Oximetry (%) 98 06/29/16 09:00 Constitutional: Yes: No Distress, Calm Cardiovascular: Yes: Regular Rate and Rhythm Respiratory: Yes: Regular, CTA Bilaterally Gastrointestinal: Yes: Soft, Other (colostomy in place) Musculoskeletal: Yes: WNL Extremities: Yes: WNL Neurological: Yes: Alert, Oriented Psychiatric: Yes: Alert, Oriented Labs: CBC, BMP 06/29/16 08:15 06/29/16 08:15 INR, PTT INR 1.04 (0.82-1.09) 06/21/16 22:11 Assessment/Plan colonic inflammation diverticulitis nausea abd pain diverticular abscess diverticular perforation plan continue current mgmt abx culture results noted hydration
[2016-06-30] MEDS: PIPERACILLIN/TAZOB 3.375 GM 50 ML IVPB SCH ×3 (01:51→17:57)
[2016-06-30] MEDS: morphine CARPU-JECT 4 MG/1 ML DISP.SYRIN IVPUSH PRN ×4 (04:30→20:59)
[2016-06-30] MEDS: ONDANSETRON 4 MG/2 ML VIAL IVPB PRN ×2 (04:31→21:00)
[2016-06-30] MEDS: LACTATED RINGERS SOLUTION 1,000 ML IV SCH ×2 (06:14→21:03)
[2016-06-30] MEDS: LORAZEPAM CARPU-JECT 2 MG/ML DISP.SYRIN IM PRN (08:31)
[2016-06-30 09:02] LABS: BASOPHIL 0.1 % (0-2.0); EOSINOPHIL 1.2 % (0-4.5); MCH 32.6 pg (25.7-33.7); MCHC 32.5 g/dl (32.0-36.0); MEAN CELL VOLUME 100.2 fl (80-96); NEUTROPHILS 90.9 % (42.8-82.8); PLATELET COUNT 408 K/MM3 (134-434); RDW 14.3 % (11.6-15.6); WHITE BLOOD COUNT 17.9 K/mm3 (4.0-10.0)
[2016-06-30 09:19] LABS: GLUCOSE,RANDOM 94 mg/dL (74-106); SGOT/AST 17 U/L (15-37)
[2016-06-30] MEDS: HEPARIN NA (PORCINE) 5,000 UNITS/ML 1ML VIAL SQ SCH ×2 (09:19→21:42)
[2016-06-30] MEDS: TIMOLOL 0.5% OPHTHALMIC SOL 5 ML BOTTLE OU SCH ×2 (09:19→21:43)
[2016-06-30] MEDS: PANTOPRAZOLE SODIUM 40 MG/100 ML PRE-DOCKED IVPB SCH (09:19)
[2016-06-30 09:22] LABS: ALK PHOS 88 U/L (45-117); ANION GAP 12 (8-16); BILIRUBIN,TOTAL 0.5 mg/dL (0.2-1.0); CALCIUM 8.3 mg/dL (8.5-10.1); CO2 30 mmol/L (21-32); CREATININE 0.3 mg/dL (0.55-1.02); SGPT/ALT 18 U/L (12-78); TOT PROT 4.7 g/dl (6.4-8.2)
--- NOTE | 2016-06-30 14:13 | PN ---
GI Progress Note Subjective: GI Note: Surgical efforts and recent events appreciated. Colostomy has begun to function. Still having significant pain about the incision which Elizabeth Freire do not want examined. Will leave it to Dr Olivas. - Objective Vital Signs: Vital Signs Temperature 97.5 F L 06/30/16 09:24 Pulse Rate 88 06/30/16 09:24 Respiratory Rate 18 06/30/16 09:24 Blood Pressure 147/74 06/30/16 09:24 O2 Sat by Pulse Oximetry (%) 98 06/29/16 21:00 Constitutional: Anxious, Mild Distress Gastrointestinal Inspection: Yes: Scars (bandaged midline incision, functioning LLQ colostomy) ...Auscultate: Yes: Normoactive Bowel Sounds ...Palpate: Yes: Tenderness (adjacent to incision, did not lift bandages) Labs: CBC, BMP 06/30/16 07:45 06/30/16 07:45 INR, PTT INR 1.04 (0.82-1.09) 06/21/16 22:11 Laboratory Tests 06/25/16 06/29/16 06/30/16 06:15 08:15 07:45 WBC 12.2 H 17.9 H D Hgb 12.0 D C-Reactive Protein 14.7 H Albumin 06/30/16 07:45 WBC Hgb C-Reactive Protein Albumin 2.0 L Assessment/Plan Sigmoid diverticulitis with abscess s/p Pennie procedure. If WBC continues to rise may need to repeat CT to look for collections that need drainage. Continue IV antibiotics.
--- NOTE | 2016-06-30 14:41 | PN ---
Progress Note, Physician Chief Complaint: C/O Diffuse abd pain able to tolerate Po passing flatus History of Present Illness: 76-year-old female with a significant past medical history of hypertension, hyperlipidemia, CAD, spinal stenosis, admitted with lower abdominal pain and nause - Current Medication List Current Medications: Active Medications Heparin Sodium (Porcine) (Heparin -) 5,000 unit SQ BID [facility] Last Admin: 06/30/16 09:19 Dose: 5,000 unit Hydralazine HCl (Apresoline Injection -) 5 mg IM Q6H PRN PRN Reason: HYPERTENSION Last Admin: 06/28/16 13:31 Dose: 5 mg Lactated Ringer's (Lactated Ringers Solution) 1,000 mls @ 75 mls/hr IV ASDIR [facility] Last Admin: 06/30/16 06:14 Dose: 75 mls/hr Piperacillin Sod/Tazobactam Sod (Zosyn 3.375gm Ivpb (Pre-Docked)) 50 mls @ 100 mls/hr IVPB Q8H-IV RAVINDER PRN Reason: Protocol Last Admin: 06/30/16 11:01 Dose: 100 mls/hr Lorazepam (Ativan Injection -) 0.5 mg IM Q8H PRN PRN Reason: ANXIETY Last Admin: 06/30/16 08:31 Dose: 0.5 mg Morphine Sulfate (Morphine Injection -) 4 mg IVPUSH Q4H PRN PRN Reason: PAIN Last Admin: 06/30/16 08:31 Dose: 4 mg Ondansetron HCl (Zofran Injection) 4 mg IVPB Q4H PRN PRN Reason: NAUSEA AND/OR VOMITING Last Admin: 06/30/16 04:31 Dose: 4 mg Pantoprazole Sodium (Protonix 40mg Ivpb (Pre-Docked)) 40 mg IVPB DAILY [facility] Last Admin: 06/30/16 09:19 Dose: 40 mg Timolol Maleate (Timoptic 0.5%) 2 drop OU BID [facility] Last Admin: 06/30/16 09:19 Dose: 2 drop - Objective Vital Signs: Vital Signs Temperature 97.5 F L 06/30/16 09:24 Pulse Rate 88 06/30/16 09:24 Respiratory Rate 18 06/30/16 09:24 Blood Pressure 147/74 06/30/16 09:24 O2 Sat by Pulse Oximetry (%) 98 06/29/16 21:00 Constitutional: Yes: Well Nourished, No Distress, Calm Eyes: Yes: WNL, Conjunctiva Clear, EOM Intact HENT: Yes: WNL, Atraumatic, Normocephalic Neck: Yes: WNL, Supple, Trachea Midline Cardiovascular: Yes: WNL Respiratory: Yes: WNL, Regular, CTA Bilaterally Gastrointestinal: Yes: WNL, Normal Bowel Sounds, Soft, Tenderness (Diffue, Colostom at place, surgical wound is has gap.) Genitourinary: Yes: WNL Breast(s): Yes: WNL Musculoskeletal: Yes: WNL Extremities: Yes: WNL Edema: No Peripheral Pulses WNL: Yes Integumentary: Yes: WNL Wound/Incision: Yes: Other (Surgical wound has a gap colostomy at place) Neurological: Yes: WNL, Alert, Oriented ...Motor Strength: WNL, LUE, LLE, RUE, RLE Psychiatric: Yes: WNL, Alert, Oriented Labs: CBC, BMP 06/30/16 07:45 06/30/16 07:45 INR, PTT INR 1.04 (0.82-1.09) 06/21/16 22:11 Problem List - Problems (1) Abscess of sigmoid colon due to diverticulitis Assessment/Plan: S/P Surgery on IV Zosyn at present afebrile tolerating PO, rising TWBC with surgical wound has a gap, f/u with surgery, passing flatus. Code(s): K57.20 - DVTRCLI OF LG INT W PERFORATION AND ABSCESS W/O BLEEDING (2) Anxiety Code(s): F41.9 - ANXIETY DISORDER, UNSPECIFIED (3) Hypertension Code(s): I10 - ESSENTIAL (PRIMARY) HYPERTENSION (4) Hyperlipidemia Code(s): E78.5 - HYPERLIPIDEMIA, UNSPECIFIED
--- NOTE | 2016-06-30 16:57 | PN ---
Progress Note, Physician History of Present Illness: patient is c/o of increased pain today colostomy has started to function stool noted - Current Medication List Current Medications: Active Medications Heparin Sodium (Porcine) (Heparin -) 5,000 unit SQ BID [facility] Last Admin: 06/30/16 09:19 Dose: 5,000 unit Hydralazine HCl (Apresoline Injection -) 5 mg IM Q6H PRN PRN Reason: HYPERTENSION Last Admin: 06/28/16 13:31 Dose: 5 mg Lactated Ringer's (Lactated Ringers Solution) 1,000 mls @ 75 mls/hr IV ASDIR [facility] Last Admin: 06/30/16 06:14 Dose: 75 mls/hr Piperacillin Sod/Tazobactam Sod (Zosyn 3.375gm Ivpb (Pre-Docked)) 50 mls @ 100 mls/hr IVPB Q8H-IV [facility] PRN Reason: Protocol Last Admin: 06/30/16 11:01 Dose: 100 mls/hr Morphine Sulfate (Morphine Injection -) 4 mg IVPUSH Q4H PRN PRN Reason: PAIN Last Admin: 06/30/16 14:21 Dose: 4 mg Ondansetron HCl (Zofran Injection) 4 mg IVPB Q4H PRN PRN Reason: NAUSEA AND/OR VOMITING Last Admin: 06/30/16 04:31 Dose: 4 mg Pantoprazole Sodium (Protonix 40mg Ivpb (Pre-Docked)) 40 mg IVPB DAILY [facility] Last Admin: 06/30/16 09:19 Dose: 40 mg Timolol Maleate (Timoptic 0.5%) 2 drop OU BID [facility] Last Admin: 06/30/16 09:19 Dose: 2 drop - Objective Vital Signs: Vital Signs Temperature 98.2 F 06/30/16 15:32 Pulse Rate 96 H 06/30/16 15:32 Respiratory Rate 18 06/30/16 15:32 Blood Pressure 147/74 06/30/16 15:32 O2 Sat by Pulse Oximetry (%) 98 06/29/16 21:00 Constitutional: Yes: Calm, Mild Distress Cardiovascular: Yes: Regular Rate and Rhythm Respiratory: Yes: Regular, CTA Bilaterally Gastrointestinal: Yes: Hypoactive Bowel Sounds, Tenderness, Other (colostomy functioning drainage tube in place) Musculoskeletal: Yes: WNL Extremities: Yes: WNL Wound/Incision: Yes: Dressing Dry and Intact Neurological: Yes: Alert, Oriented Psychiatric: Yes: Alert, Oriented Labs: CBC, BMP 06/30/16 07:45 06/30/16 07:45 INR, PTT INR 1.04 (0.82-1.09) 06/21/16 22:11 Assessment/Plan colonic inflammation diverticulitis nausea abd pain diverticular abscess diverticular perforation hartmans procedure plan continue current mgmt abx culture results noted hydration worry is the wbc has jumped up if wbc does not drop tomorrow get a ct scan have to r/o collection
[2016-06-30] MEDS: ZOLPIDEM TARTRATE 5 MG TABLET PO PRN (23:07)
[2016-07-01] MEDS: PIPERACILLIN/TAZOB 3.375 GM 50 ML IVPB SCH ×3 (01:47→18:50)
[2016-07-01] MEDS: morphine CARPU-JECT 4 MG/1 ML DISP.SYRIN IVPUSH PRN ×4 (03:53→18:49)
[2016-07-01] MEDS: ALPRAZolam 2 MG TABLET PO PRN ×2 (06:11→22:08)
[2016-07-01 07:53] LABS: BASOPHIL 0.3 % (0-2.0); EOSINOPHIL 1.6 % (0-4.5); MCH 32.7 pg (25.7-33.7); MCHC 32.8 g/dl (32.0-36.0); MEAN CELL VOLUME 99.6 fl (80-96); MEAN PLT VOLUME 7.7 fl (7.5-11.1); NEUTROPHILS 89.7 % (42.8-82.8); PLATELET COUNT 334 K/MM3 (134-434); RDW 13.9 % (11.6-15.6); WHITE BLOOD COUNT 13.3 K/mm3 (4.0-10.0)
[2016-07-01 08:21] LABS: COCKROFT - GAULT 172.499; CREATININE 0.3 mg/dL (0.55-1.02)
[2016-07-01 08:23] LABS: C-REACTIVE PROTEIN 3.9 MG/DL (0.00-0.3)
--- NOTE | 2016-07-01 09:30 | PN ---
Progress Note (short form) - Note Progress Note: Attending Surgeon POD #6 c/o pain VSS AF tolerating clear liquid diet abdomen-soft w/ incisional tenderness; wound c/d/i and healing by secondary intention; missdle aspect of wound w/some purulence/necrotic fat; ostomy viable w/ stool WBC 13.3 toady JAKE's w/minimal serous output. IMP: improving PLAN: advance diet; BID wound care; continue IVAB's and drains; OOB. Kalpesh Olivas MD FACS
[2016-07-01] MEDS: HEPARIN NA (PORCINE) 5,000 UNITS/ML 1ML VIAL SQ SCH ×2 (10:25→21:48)
[2016-07-01] MEDS: TIMOLOL 0.5% OPHTHALMIC SOL 5 ML BOTTLE OU SCH ×2 (10:26→21:49)
[2016-07-01] MEDS: PANTOPRAZOLE SODIUM 40 MG/100 ML PRE-DOCKED IVPB SCH (10:27)
[2016-07-01] MEDS: LACTATED RINGERS SOLUTION 1,000 ML IV SCH (10:33)
[2016-07-01] MEDS: ONDANSETRON 4 MG/2 ML VIAL IVPB PRN ×2 (13:32→22:12)
--- NOTE | 2016-07-01 15:39 | PN ---
Progress Note, Physician Chief Complaint: Ms Lopez says she is still having significant pain at incision site. Says it is worse with movement. She says it makes her nervous. Tolerating diet. No cp, sob, n/v. - Current Medication List Current Medications: Active Medications Alprazolam (Xanax -) 1 mg PO Q8H PRN Last Admin: 07/01/16 06:11 Dose: 1 mg Heparin Sodium (Porcine) (Heparin -) 5,000 unit SQ BID [facility] Last Admin: 07/01/16 10:25 Dose: 5,000 unit Hydralazine HCl (Apresoline Injection -) 5 mg IM Q6H PRN PRN Reason: HYPERTENSION Last Admin: 06/28/16 13:31 Dose: 5 mg Lactated Ringer's (Lactated Ringers Solution) 1,000 mls @ 75 mls/hr IV ASDIR [facility] Last Admin: 07/01/16 10:33 Dose: 75 mls/hr Piperacillin Sod/Tazobactam Sod (Zosyn 3.375gm Ivpb (Pre-Docked)) 50 mls @ 100 mls/hr IVPB Q8H-IV [facility] PRN Reason: Protocol Last Admin: 07/01/16 10:25 Dose: 100 mls/hr Morphine Sulfate (Morphine Injection -) 4 mg IVPUSH Q4H PRN PRN Reason: PAIN Last Admin: 07/01/16 14:35 Dose: 4 mg Ondansetron HCl (Zofran Injection) 4 mg IVPB Q4H PRN PRN Reason: NAUSEA AND/OR VOMITING Last Admin: 07/01/16 13:32 Dose: 4 mg Pantoprazole Sodium (Protonix 40mg Ivpb (Pre-Docked)) 40 mg IVPB DAILY [facility] Last Admin: 07/01/16 10:27 Dose: 40 mg Timolol Maleate (Timoptic 0.5%) 2 drop OU BID [facility] Last Admin: 07/01/16 10:26 Dose: 2 drop Zolpidem Tartrate (Ambien -) 5 mg PO HS PRN Last Admin: 06/30/16 23:07 Dose: 5 mg - Objective Vital Signs: Vital Signs Temperature 97.4 F L 07/01/16 14:00 Pulse Rate 84 07/01/16 14:00 Respiratory Rate 16 07/01/16 06:00 Blood Pressure 146/77 07/01/16 14:00 O2 Sat by Pulse Oximetry (%) 97 07/01/16 10:59 Constitutional: Yes: No Distress, Calm Cardiovascular: Yes: Regular Rate and Rhythm. No: Gallop, Murmur, Rub Respiratory: Yes: Regular, CTA Bilaterally. No: Rales, Rhonchi, Wheezes Gastrointestinal: Yes: Normal Bowel Sounds, Tenderness. No: Distention Extremities: Yes: WNL Edema: No Labs: CBC, BMP 07/01/16 07:05 07/01/16 07:05 INR, PTT INR 1.04 (0.82-1.09) 06/21/16 22:11 Problem List - Problems (1) Abscess of sigmoid colon due to diverticulitis Code(s): K57.20 - DVTRCLI OF LG INT W PERFORATION AND ABSCESS W/O BLEEDING (2) Hyperlipidemia Code(s): E78.5 - HYPERLIPIDEMIA, UNSPECIFIED (3) Hypertension Code(s): I10 - ESSENTIAL (PRIMARY) HYPERTENSION (4) Sepsis Code(s): A41.9 - SEPSIS, UNSPECIFIED ORGANISM Qualifiers: Sepsis type: Escherichia coli Qualified Code(s): A41.51 - Sepsis due to Escherichia coli [E. coli] (5) Anxiety Code(s): F41.9 - ANXIETY DISORDER, UNSPECIFIED Assessment/Plan (1) Abscess of sigmoid colon due to diverticulitis Assessment/Plan: -patient with fevers and leukocytosis over the weekend -leukocytosis improving -continue zosyn per ID -surgery managing colostomy Code(s): K57.20 - DVTRCLI OF LG INT W PERFORATION AND ABSCESS W/O BLEEDING (2) Hypertension Assessment/Plan: -well controlled Code(s): I10 - ESSENTIAL (PRIMARY) HYPERTENSION (3) Hyperlipidemia -holding medications currently -restart on discharge Code(s): E78.5 - HYPERLIPIDEMIA, UNSPECIFIED (4) Sepsis -as above -continue zosyn (5) Anxiety -xanax prn
--- NOTE | 2016-07-01 17:59 | PN ---
Progress Note, Physician History of Present Illness: patient still with pain no new issues colostomy working - Current Medication List Current Medications: Active Medications Alprazolam (Xanax -) 1 mg PO Q8H PRN Last Admin: 07/01/16 06:11 Dose: 1 mg Heparin Sodium (Porcine) (Heparin -) 5,000 unit SQ BID [facility] Last Admin: 07/01/16 10:25 Dose: 5,000 unit Hydralazine HCl (Apresoline Injection -) 5 mg IM Q6H PRN PRN Reason: HYPERTENSION Last Admin: 06/28/16 13:31 Dose: 5 mg Lactated Ringer's (Lactated Ringers Solution) 1,000 mls @ 75 mls/hr IV ASDIR [facility] Last Admin: 07/01/16 10:33 Dose: 75 mls/hr Piperacillin Sod/Tazobactam Sod (Zosyn 3.375gm Ivpb (Pre-Docked)) 50 mls @ 100 mls/hr IVPB Q8H-IV [facility] PRN Reason: Protocol Last Admin: 07/01/16 10:25 Dose: 100 mls/hr Morphine Sulfate (Morphine Injection -) 4 mg IVPUSH Q4H PRN PRN Reason: PAIN Last Admin: 07/01/16 14:35 Dose: 4 mg Ondansetron HCl (Zofran Injection) 4 mg IVPB Q4H PRN PRN Reason: NAUSEA AND/OR VOMITING Last Admin: 07/01/16 13:32 Dose: 4 mg Pantoprazole Sodium (Protonix 40mg Ivpb (Pre-Docked)) 40 mg IVPB DAILY [facility] Last Admin: 07/01/16 10:27 Dose: 40 mg Timolol Maleate (Timoptic 0.5%) 2 drop OU BID [facility] Last Admin: 07/01/16 10:26 Dose: 2 drop Zolpidem Tartrate (Ambien -) 5 mg PO HS PRN Last Admin: 06/30/16 23:07 Dose: 5 mg - Objective Vital Signs: Vital Signs Temperature 97.4 F L 07/01/16 14:00 Pulse Rate 84 07/01/16 14:00 Respiratory Rate 16 07/01/16 09:00 Blood Pressure 146/77 07/01/16 14:00 O2 Sat by Pulse Oximetry (%) 97 07/01/16 10:59 Constitutional: Yes: Calm, Mild Distress Cardiovascular: Yes: Regular Rate and Rhythm Respiratory: Yes: Regular, CTA Bilaterally Gastrointestinal: Yes: Soft, Hypoactive Bowel Sounds, Other (colostomy functioning draiange tube in place) Musculoskeletal: Yes: WNL Extremities: Yes: WNL Neurological: Yes: Alert, Oriented Psychiatric: Yes: Alert, Oriented Labs: CBC, BMP 07/01/16 07:05 07/01/16 07:05 INR, PTT INR 1.04 (0.82-1.09) 06/21/16 22:11 Assessment/Plan colonic inflammation diverticulitis nausea abd pain diverticular abscess diverticular perforation hartmans procedure plan continue current mgmt abx culture results noted hydration wbc to be monitored
[2016-07-01] MEDS ORDERED: PT OWN MED DRAWER 7, Y5N ONE (21:43)
[2016-07-02] MEDS: PIPERACILLIN/TAZOB 3.375 GM 50 ML IVPB SCH ×3 (02:22→17:25)
[2016-07-02] MEDS: morphine CARPU-JECT 4 MG/1 ML DISP.SYRIN IVPUSH PRN ×4 (04:15→20:55)
[2016-07-02 07:29] LABS: BASOPHIL 0.2 % (0-2.0); EOSINOPHIL 2.3 % (0-4.5); MCH 32.8 pg (25.7-33.7); MCHC 33.2 g/dl (32.0-36.0); MEAN CELL VOLUME 98.9 fl (80-96); MEAN PLT VOLUME 7.4 fl (7.5-11.1); NEUTROPHILS 85.8 % (42.8-82.8); PLATELET COUNT 343 K/MM3 (134-434); RDW 13.6 % (11.6-15.6); WHITE BLOOD COUNT 12.9 K/mm3 (4.0-10.0)
[2016-07-02 08:05] LABS: CALCIUM 8.1 mg/dL (8.5-10.1); COCKROFT - GAULT 172.499; CREATININE 0.3 mg/dL (0.55-1.02); PHOSPHOROUS 2.7 mg/dL (2.5-4.9)
--- NOTE | 2016-07-02 09:17 | PN ---
Progress Note, Physician History of Present Illness: stable pain main issue associated with weakness - Current Medication List Current Medications: Active Medications Alprazolam (Xanax -) 1 mg PO Q8H PRN Last Admin: 07/01/16 22:08 Dose: 1 mg Heparin Sodium (Porcine) (Heparin -) 5,000 unit SQ BID [facility] Last Admin: 07/01/16 21:48 Dose: 5,000 unit Hydralazine HCl (Apresoline Injection -) 5 mg IM Q6H PRN PRN Reason: HYPERTENSION Last Admin: 06/28/16 13:31 Dose: 5 mg Lactated Ringer's (Lactated Ringers Solution) 1,000 mls @ 75 mls/hr IV ASDIR [facility] Last Admin: 07/01/16 10:33 Dose: 75 mls/hr Piperacillin Sod/Tazobactam Sod (Zosyn 3.375gm Ivpb (Pre-Docked)) 50 mls @ 100 mls/hr IVPB Q8H-IV [facility] PRN Reason: Protocol Last Admin: 07/02/16 02:22 Dose: 100 mls/hr Morphine Sulfate (Morphine Injection -) 4 mg IVPUSH Q4H PRN PRN Reason: PAIN Last Admin: 07/02/16 04:15 Dose: 4 mg Ondansetron HCl (Zofran Injection) 4 mg IVPB Q4H PRN PRN Reason: NAUSEA AND/OR VOMITING Last Admin: 07/01/16 22:12 Dose: 4 mg Pantoprazole Sodium (Protonix 40mg Ivpb (Pre-Docked)) 40 mg IVPB DAILY [facility] Last Admin: 07/01/16 10:27 Dose: 40 mg Timolol Maleate (Timoptic 0.5%) 2 drop OU BID [facility] Last Admin: 07/01/16 21:49 Dose: 2 drop Zolpidem Tartrate (Ambien -) 5 mg PO HS PRN Last Admin: 06/30/16 23:07 Dose: 5 mg - Objective Vital Signs: Vital Signs Temperature 98 F 07/02/16 06:00 Pulse Rate 97 H 07/02/16 06:00 Respiratory Rate 18 07/02/16 06:00 Blood Pressure 128/85 07/02/16 06:00 O2 Sat by Pulse Oximetry (%) 97 07/01/16 21:00 Constitutional: Yes: Calm, Mild Distress Cardiovascular: Yes: Regular Rate and Rhythm Respiratory: Yes: Regular, CTA Bilaterally Gastrointestinal: Yes: Normal Bowel Sounds, Soft, Other (fning colostomy drainage tubes in place) Musculoskeletal: Yes: WNL Extremities: Yes: WNL Neurological: Yes: Alert, Oriented Psychiatric: Yes: Alert, Oriented Labs: CBC, BMP 07/02/16 06:20 07/02/16 06:20 INR, PTT INR 1.04 (0.82-1.09) 06/21/16 22:11 Assessment/Plan colonic inflammation diverticulitis nausea abd pain diverticular abscess diverticular perforation hartmans procedure plan continue current mgmt abx culture results noted hydration wbc decreased
[2016-07-02] MEDS: HEPARIN NA (PORCINE) 5,000 UNITS/ML 1ML VIAL SQ SCH ×2 (09:34→20:59)
[2016-07-02] MEDS: PANTOPRAZOLE SODIUM 40 MG/100 ML PRE-DOCKED IVPB SCH (09:35)
--- NOTE | 2016-07-02 09:37 | PN ---
Progress Note (short form) - Note Progress Note: Attending Surgeon POD #7 Tolerating diet; c/o pain. VSS AF abdo-no change in wound; continues to heal by secondary intention; ostomy viable and functioning well. WBC 12.9 IMP: improving PLAN: Continue LWC; drains removed; continue present tx. Ambulate. Kalpesh Olivas MD FACS
[2016-07-02] MEDS ORDERED: PT OWN MED DRAWER 7, Y5N ONE (09:48)
[2016-07-02] MEDS: TIMOLOL 0.5% OPHTHALMIC SOL 5 ML BOTTLE OU SCH ×2 (10:09→21:41)
--- NOTE | 2016-07-02 12:08 | PN ---
Progress Note, Physician Chief Complaint: Ms Lopez says she is feeling better today. Still lethargic secondary to meds. No cp, sob, n/v. - Current Medication List Current Medications: Active Medications Alprazolam (Xanax -) 1 mg PO Q8H PRN Last Admin: 07/01/16 22:08 Dose: 1 mg Heparin Sodium (Porcine) (Heparin -) 5,000 unit SQ BID [facility] Last Admin: 07/02/16 09:34 Dose: 5,000 unit Hydralazine HCl (Apresoline Injection -) 5 mg IM Q6H PRN PRN Reason: HYPERTENSION Last Admin: 06/28/16 13:31 Dose: 5 mg Lactated Ringer's (Lactated Ringers Solution) 1,000 mls @ 75 mls/hr IV ASDIR [facility] Last Admin: 07/01/16 10:33 Dose: 75 mls/hr Piperacillin Sod/Tazobactam Sod (Zosyn 3.375gm Ivpb (Pre-Docked)) 50 mls @ 100 mls/hr IVPB Q8H-IV [facility] PRN Reason: Protocol Last Admin: 07/02/16 09:34 Dose: 100 mls/hr Morphine Sulfate (Morphine Injection -) 4 mg IVPUSH Q4H PRN PRN Reason: PAIN Last Admin: 07/02/16 09:28 Dose: 4 mg Ondansetron HCl (Zofran Injection) 4 mg IVPB Q4H PRN PRN Reason: NAUSEA AND/OR VOMITING Last Admin: 07/01/16 22:12 Dose: 4 mg Pantoprazole Sodium (Protonix 40mg Ivpb (Pre-Docked)) 40 mg IVPB DAILY [facility] Last Admin: 07/02/16 09:35 Dose: 40 mg Timolol Maleate (Timoptic 0.5%) 2 drop OU BID [facility] Last Admin: 07/02/16 10:09 Dose: 2 drop Zolpidem Tartrate (Ambien -) 5 mg PO HS PRN Last Admin: 06/30/16 23:07 Dose: 5 mg - Objective Vital Signs: Vital Signs Temperature 98 F 07/02/16 06:00 Pulse Rate 100 H 07/02/16 10:01 Respiratory Rate 18 07/02/16 06:00 Blood Pressure 128/85 07/02/16 06:00 O2 Sat by Pulse Oximetry (%) 96 05/02/17 10:01 Constitutional: Yes: No Distress, Other (lethargic) Cardiovascular: Yes: Regular Rate and Rhythm. No: Gallop, Murmur, Rub Respiratory: Yes: Regular, CTA Bilaterally. No: Rales, Rhonchi, Wheezes Gastrointestinal: Yes: Normal Bowel Sounds, Soft, Other (colostomy in place) Extremities: Yes: WNL Edema: No Labs: CBC, BMP 07/02/16 06:20 07/02/16 06:20 INR, PTT INR 1.04 (0.82-1.09) 06/21/16 22:11 Problem List - Problems (1) Abscess of sigmoid colon due to diverticulitis Code(s): K57.20 - DVTRCLI OF LG INT W PERFORATION AND ABSCESS W/O BLEEDING (2) Hyperlipidemia Code(s): E78.5 - HYPERLIPIDEMIA, UNSPECIFIED (3) Hypertension Code(s): I10 - ESSENTIAL (PRIMARY) HYPERTENSION (4) Sepsis Code(s): A41.9 - SEPSIS, UNSPECIFIED ORGANISM Qualifiers: Sepsis type: Escherichia coli Qualified Code(s): A41.51 - Sepsis due to Escherichia coli [E. coli] (5) Anxiety Code(s): F41.9 - ANXIETY DISORDER, UNSPECIFIED Assessment/Plan (1) Abscess of sigmoid colon due to diverticulitis Assessment/Plan: -patient with fevers and leukocytosis over the weekend -leukocytosis improving -continue zosyn per ID -surgery managing colostomy Code(s): K57.20 - DVTRCLI OF LG INT W PERFORATION AND ABSCESS W/O BLEEDING (2) Hypertension Assessment/Plan: -well controlled Code(s): I10 - ESSENTIAL (PRIMARY) HYPERTENSION (3) Hyperlipidemia -holding medications currently -restart on discharge Code(s): E78.5 - HYPERLIPIDEMIA, UNSPECIFIED (4) Sepsis -as above -continue zosyn -awaiting culture results (5) Anxiety -xanax prn
[2016-07-02] MEDS: LACTATED RINGERS SOLUTION 1,000 ML IV SCH (14:33)
[2016-07-02] MEDS: ONDANSETRON 4 MG/2 ML VIAL IVPB PRN ×2 (17:25→20:51)
[2016-07-02] MEDS: ZOLPIDEM TARTRATE 5 MG TABLET PO PRN (21:00)
[2016-07-03] MEDS: ONDANSETRON 4 MG/2 ML VIAL IVPB PRN ×2 (01:43→08:55)
[2016-07-03] MEDS: ALPRAZolam 2 MG TABLET PO PRN ×3 (01:43→21:24)
[2016-07-03] MEDS: morphine CARPU-JECT 4 MG/1 ML DISP.SYRIN IVPUSH PRN ×2 (01:47→08:51)
[2016-07-03] MEDS: LACTATED RINGERS SOLUTION 1,000 ML IV SCH ×2 (05:40→23:44)
[2016-07-03 07:15] LABS: BASOPHIL 0.2 % (0-2.0); EOSINOPHIL 1.8 % (0-4.5); MCH 32.9 pg (25.7-33.7); MCHC 33.6 g/dl (32.0-36.0); MEAN PLT VOLUME 7.9 fl (7.5-11.1); NEUTROPHILS 84.8 % (42.8-82.8); PLATELET COUNT 350 K/MM3 (134-434); RDW 13.9 % (11.6-15.6); WHITE BLOOD COUNT 13.2 K/mm3 (4.0-10.0)
[2016-07-03 07:45] LABS: CALCIUM 7.6 mg/dL (8.5-10.1); COCKROFT - GAULT 172.499; CREATININE 0.3 mg/dL (0.55-1.02); MAGNESIUM 1.6 mg/dL (1.8-2.4); PHOSPHOROUS 2.6 mg/dL (2.5-4.9)
[2016-07-03] MEDS ORDERED: PT OWN MED DRAWER 7, Y5N ONE ×2 (08:48→21:32)
[2016-07-03] MEDS: TIMOLOL 0.5% OPHTHALMIC SOL 5 ML BOTTLE OU SCH ×2 (09:26→21:33)
[2016-07-03] MEDS: HEPARIN NA (PORCINE) 5,000 UNITS/ML 1ML VIAL SQ SCH ×2 (09:26→21:25)
[2016-07-03] MEDS: PANTOPRAZOLE SODIUM 40 MG/100 ML PRE-DOCKED IVPB SCH (09:27)
[2016-07-03] MEDS ORDERED: MAGNESIUM SULF 50% (8.12 MEQ/2 ML-1 GM VIAL) IVPB ONE (13:37)
--- NOTE | 2016-07-03 14:44 | PN ---
Progress Note (short form) - Note Progress Note: Attending Surgeon POD # 8 No c/o; tolerating diet; ostomy functioning VSS afebrile wound/ostomy/abdomen no change WBC 13.2 IMP: doing well PLAN: Continue present tx; ? discharge planning ? Kalpesh Olivas MD FACS
--- NOTE | 2016-07-03 15:12 | PN ---
Progress Note, Physician History of Present Illness: stable feels very weak - Current Medication List Current Medications: Active Medications Alprazolam (Xanax -) 1 mg PO Q8H PRN Last Admin: 07/03/16 09:26 Dose: 1 mg Heparin Sodium (Porcine) (Heparin -) 5,000 unit SQ BID [facility] Last Admin: 07/03/16 09:26 Dose: 5,000 unit Hydralazine HCl (Apresoline Injection -) 5 mg IM Q6H PRN PRN Reason: HYPERTENSION Last Admin: 06/28/16 13:31 Dose: 5 mg Lactated Ringer's (Lactated Ringers Solution) 1,000 mls @ 75 mls/hr IV ASDIR [facility] Last Admin: 07/03/16 05:40 Dose: 75 mls/hr Ondansetron HCl (Zofran Injection) 4 mg IVPB Q4H PRN PRN Reason: NAUSEA AND/OR VOMITING Last Admin: 07/03/16 08:55 Dose: 4 mg Pantoprazole Sodium (Protonix 40mg Ivpb (Pre-Docked)) 40 mg IVPB DAILY [facility] Last Admin: 07/03/16 09:27 Dose: 40 mg Timolol Maleate (Timoptic 0.5%) 2 drop OU BID [facility] Last Admin: 07/03/16 09:26 Dose: 2 drop Zolpidem Tartrate (Ambien -) 5 mg PO HS PRN Last Admin: 07/02/16 21:00 Dose: 5 mg - Objective Vital Signs: Vital Signs Temperature 98.5 F 07/03/16 14:41 Pulse Rate 85 07/03/16 14:41 Respiratory Rate 18 07/03/16 10:46 Blood Pressure 124/70 07/03/16 14:41 O2 Sat by Pulse Oximetry (%) 95 07/03/16 09:00 Constitutional: Yes: No Distress, Calm Cardiovascular: Yes: Regular Rate and Rhythm Respiratory: Yes: Regular, CTA Bilaterally Gastrointestinal: Yes: Normal Bowel Sounds, Soft, Other (colostomy fning) Musculoskeletal: Yes: WNL Extremities: Yes: WNL Neurological: Yes: Alert, Oriented Psychiatric: Yes: Alert Labs: CBC, BMP 07/03/16 06:20 07/03/16 06:20 INR, PTT INR 1.04 (0.82-1.09) 04/21/17 22:11 Assessment/Plan colonic inflammation diverticulitis nausea abd pain diverticular abscess diverticular perforation hartmans procedure plan continue current mgmt abx culture results noted hydration wbc has increased continue to monitor
[2016-07-03] MEDS ORDERED: morphine CARPU-JECT 2 MG/1 ML DISP.SYRIN IVPB PRN (20:54)
[2016-07-03] MEDS ORDERED: morphine CARPU-JECT 2 MG/1 ML DISP.SYRIN IVPUSH PRN (21:06)
[2016-07-03] MEDS: ZOLPIDEM TARTRATE 5 MG TABLET PO PRN (23:44)
--- NOTE | 2016-07-04 09:05 | PN ---
Progress Note, Physician Chief Complaint: Ms Lopez complains of pain at surgery site when moving. No cp, sob, n/v. - Current Medication List Current Medications: Active Medications Alprazolam (Xanax -) 1 mg PO Q8H PRN Last Admin: 07/03/16 21:24 Dose: 1 mg Heparin Sodium (Porcine) (Heparin -) 5,000 unit SQ BID [facility] Last Admin: 07/03/16 21:25 Dose: 5,000 unit Hydralazine HCl (Apresoline Injection -) 5 mg IM Q6H PRN PRN Reason: HYPERTENSION Last Admin: 06/28/16 13:31 Dose: 5 mg Lactated Ringer's (Lactated Ringers Solution) 1,000 mls @ 75 mls/hr IV ASDIR [facility] Last Admin: 07/03/16 23:44 Dose: 75 mls/hr Morphine Sulfate (Morphine Injection -) 2 mg IVPUSH Q4H PRN PRN Reason: PAIN Last Admin: 07/03/16 21:23 Dose: 2 mg Ondansetron HCl (Zofran Injection) 4 mg IVPB Q4H PRN PRN Reason: NAUSEA AND/OR VOMITING Last Admin: 07/03/16 08:55 Dose: 4 mg Pantoprazole Sodium (Protonix 40mg Ivpb (Pre-Docked)) 40 mg IVPB DAILY [facility] Last Admin: 07/03/16 09:27 Dose: 40 mg Timolol Maleate (Timoptic 0.5%) 2 drop OU BID [facility] Last Admin: 07/03/16 21:33 Dose: 2 drop Zolpidem Tartrate (Ambien -) 5 mg PO HS PRN Last Admin: 07/03/16 23:44 Dose: 5 mg - Objective Vital Signs: Vital Signs Temperature 97.6 F 07/04/16 06:00 Pulse Rate 95 H 07/04/16 06:00 Respiratory Rate 20 07/04/16 06:00 Blood Pressure 157/88 07/04/16 06:00 O2 Sat by Pulse Oximetry (%) 95 07/03/16 21:00 Constitutional: Yes: Well Nourished, No Distress, Calm Cardiovascular: Yes: Regular Rate and Rhythm. No: Gallop, Murmur, Rub Respiratory: Yes: Regular, CTA Bilaterally. No: Rales, Rhonchi, Wheezes Gastrointestinal: Yes: Normal Bowel Sounds, Soft, Tenderness. No: Distention Extremities: Yes: WNL Edema: No Labs: CBC, BMP 07/03/16 06:20 07/03/16 06:20 INR, PTT INR 1.04 (0.82-1.09) 06/21/16 22:11 Problem List - Problems (1) Abscess of sigmoid colon due to diverticulitis Code(s): K57.20 - DVTRCLI OF LG INT W PERFORATION AND ABSCESS W/O BLEEDING (2) Hyperlipidemia Code(s): E78.5 - HYPERLIPIDEMIA, UNSPECIFIED (3) Hypertension Code(s): I10 - ESSENTIAL (PRIMARY) HYPERTENSION (4) Sepsis Code(s): A41.9 - SEPSIS, UNSPECIFIED ORGANISM Qualifiers: Sepsis type: Escherichia coli Qualified Code(s): A41.51 - Sepsis due to Escherichia coli [E. coli] (5) Anxiety Code(s): F41.9 - ANXIETY DISORDER, UNSPECIFIED Assessment/Plan (1) Abscess of sigmoid colon due to diverticulitis Assessment/Plan: -patient with fevers and leukocytosis over the weekend -leukocytosis improving -continue zosyn per ID -surgery managing colostomy -encouraged patient to ambulate and sit in chair Code(s): K57.20 - DVTRCLI OF LG INT W PERFORATION AND ABSCESS W/O BLEEDING (2) Hypertension Assessment/Plan: -well controlled Code(s): I10 - ESSENTIAL (PRIMARY) HYPERTENSION (3) Hyperlipidemia -holding medications currently -restart on discharge Code(s): E78.5 - HYPERLIPIDEMIA, UNSPECIFIED (4) Sepsis -as above -continue zosyn -cultures resulte (5) Anxiety -xanax prn
[2016-07-04] MEDS ORDERED: PT OWN MED DRAWER 7, Y5N ONE ×2 (10:13→20:54)
[2016-07-04] MEDS: TIMOLOL 0.5% OPHTHALMIC SOL 5 ML BOTTLE OU SCH ×2 (10:18→21:30)
[2016-07-04 10:19] LABS: MCH 32.7 pg (25.7-33.7); MCHC 33.8 g/dl (32.0-36.0); MEAN CELL VOLUME 96.9 fl (80-96); PLATELET COUNT 339 K/MM3 (134-434); RDW 13.6 % (11.6-15.6); WHITE BLOOD COUNT 14.3 K/mm3 (4.0-10.0)
[2016-07-04] MEDS: HEPARIN NA (PORCINE) 5,000 UNITS/ML 1ML VIAL SQ SCH ×2 (10:22→21:30)
[2016-07-04] MEDS: PANTOPRAZOLE SODIUM 40 MG/100 ML PRE-DOCKED IVPB SCH (10:22)
[2016-07-04 11:11] LABS: CALCIUM 7.8 mg/dL (8.5-10.1); COCKROFT - GAULT 258.7485; CREATININE 0.2 mg/dL (0.55-1.02)
[2016-07-04] MEDS ORDERED: ALPRAZolam 2 MG TABLET PO PRN (11:23)
--- NOTE | 2016-07-04 11:30 | PN ---
Progress Note, Physician Chief Complaint: Ms Lopez complains of feeling weak and having pain with movement. Also says she is anxious about leaving the hospital. No cp or sob. - Current Medication List Current Medications: Active Medications Acetaminophen (Tylenol -) 650 mg PO Q4H PRN PRN Reason: FEVER OR PAIN Alprazolam (Xanax -) 0.5 mg PO Q8H PRN PRN Reason: ANXIETY Heparin Sodium (Porcine) (Heparin -) 5,000 unit SQ BID [facility] Last Admin: 07/04/16 10:22 Dose: 5,000 unit Hydralazine HCl (Apresoline Injection -) 5 mg IM Q6H PRN PRN Reason: HYPERTENSION Last Admin: 06/28/16 13:31 Dose: 5 mg Ondansetron HCl (Zofran Injection) 4 mg IVPB Q4H PRN PRN Reason: NAUSEA AND/OR VOMITING Last Admin: 07/03/16 08:55 Dose: 4 mg Pantoprazole Sodium (Protonix 40mg Ivpb (Pre-Docked)) 40 mg IVPB DAILY [facility] Last Admin: 07/04/16 10:22 Dose: 40 mg Timolol Maleate (Timoptic 0.5%) 2 drop OU BID [facility] Last Admin: 07/04/16 10:18 Dose: 2 drop Zolpidem Tartrate (Ambien -) 5 mg PO HS PRN Last Admin: 07/03/16 23:44 Dose: 5 mg - Objective Vital Signs: Vital Signs Temperature 97.6 F 07/04/16 06:00 Pulse Rate 95 H 07/04/16 06:00 Respiratory Rate 20 07/04/16 06:00 Blood Pressure 157/88 07/04/16 06:00 O2 Sat by Pulse Oximetry (%) 95 07/03/16 21:00 Constitutional: Yes: Well Nourished, No Distress, Calm Cardiovascular: Yes: Regular Rate and Rhythm. No: Gallop, Murmur, Rub Respiratory: Yes: Regular, CTA Bilaterally. No: Rales, Rhonchi, Wheezes Gastrointestinal: Yes: Normal Bowel Sounds, Soft, Tenderness, Other (colostomy bag). No: Distention Extremities: Yes: WNL Edema: No Labs: CBC, BMP 07/04/16 09:40 INR, PTT INR 1.04 (0.82-1.09) 06/21/16 22:11 Problem List - Problems (1) Abscess of sigmoid colon due to diverticulitis Code(s): K57.20 - DVTRCLI OF LG INT W PERFORATION AND ABSCESS W/O BLEEDING (2) Hyperlipidemia Code(s): E78.5 - HYPERLIPIDEMIA, UNSPECIFIED (3) Hypertension Code(s): I10 - ESSENTIAL (PRIMARY) HYPERTENSION (4) Sepsis Code(s): A41.9 - SEPSIS, UNSPECIFIED ORGANISM Qualifiers: Sepsis type: Escherichia coli Qualified Code(s): A41.51 - Sepsis due to Escherichia coli [E. coli] (5) Anxiety Code(s): F41.9 - ANXIETY DISORDER, UNSPECIFIED Assessment/Plan (1) Abscess of sigmoid colon due to diverticulitis Assessment/Plan: -patient with fevers and leukocytosis over the weekend -colostomy bag in place and working properly -case d/w surgery Code(s): K57.20 - DVTRCLI OF LG INT W PERFORATION AND ABSCESS W/O BLEEDING (2) Hypertension Assessment/Plan: -well controlled Code(s): I10 - ESSENTIAL (PRIMARY) HYPERTENSION (3) Hyperlipidemia -holding medications currently -restart on discharge Code(s): E78.5 - HYPERLIPIDEMIA, UNSPECIFIED (4) Sepsis -ID following -currently off antibiotics -leukocytosis increasing -? if need to restart antibiotics (5) Anxiety -will stop xanax secondary to somnolence
--- NOTE | 2016-07-04 13:17 | PN ---
Progress Note (short form) - Note Progress Note: Surgery- Dr. Olivas Patient seen and examined with Dr. Olivas. Patient is sleepy and lethargic, received Xanax, Ambien, and Morphine last night. Patient is tolerating her diet , but not eating much per nursing. She has been OOB to chair and is urinating without issue. Last Vital Signs Temp Pulse Resp BP Pulse Ox 97.6 F 95 H 20 157/88 95 07/04/16 06:00 07/04/16 06:00 07/04/16 06:00 07/04/16 06:00 07/03/16 21:00 CBC, BMP 07/04/16 09:40 07/04/16 09:40 Exam: Gen: NAD, sedated, lethargic Abd: soft, some tenderness with palp around midline, midline wound no change, some drainage, dressing changed on rounds, ostomy functioning well Problem List - Problems (1) Abscess of sigmoid colon due to diverticulitis Assessment/Plan: s/p Pennie's procedure, sigmoid resection with end-colostomy, 06/25 Continue regular diet OOB DVT prophylaxis BID dressing changes DC morphine Ok to go to rehab from surgical standpoint Patient seen and discussed with Dr. Olivas and agrees Code(s): K57.20 - DVTRCLI OF LG INT W PERFORATION AND ABSCESS W/O BLEEDING
--- NOTE | 2016-07-04 15:03 | PN ---
Progress Note, Physician History of Present Illness: stable feels very weak wound opening at few places drainage tube removed - Current Medication List Current Medications: Active Medications Acetaminophen (Tylenol -) 650 mg PO Q4H PRN PRN Reason: FEVER OR PAIN Alprazolam (Xanax -) 0.5 mg PO Q8H PRN PRN Reason: ANXIETY Heparin Sodium (Porcine) (Heparin -) 5,000 unit SQ BID [facility] Last Admin: 07/04/16 10:22 Dose: 5,000 unit Hydralazine HCl (Apresoline Injection -) 5 mg IM Q6H PRN PRN Reason: HYPERTENSION Last Admin: 06/28/16 13:31 Dose: 5 mg Ondansetron HCl (Zofran Injection) 4 mg IVPB Q4H PRN PRN Reason: NAUSEA AND/OR VOMITING Last Admin: 07/03/16 08:55 Dose: 4 mg Pantoprazole Sodium (Protonix 40mg Ivpb (Pre-Docked)) 40 mg IVPB DAILY [facility] Last Admin: 07/04/16 10:22 Dose: 40 mg Timolol Maleate (Timoptic 0.5%) 2 drop OU BID [facility] Last Admin: 07/04/16 10:18 Dose: 2 drop Zolpidem Tartrate (Ambien -) 5 mg PO HS PRN Last Admin: 07/03/16 23:44 Dose: 5 mg - Objective Vital Signs: Vital Signs Temperature 97.6 F 07/04/16 06:00 Pulse Rate 95 H 07/04/16 06:00 Respiratory Rate 20 07/04/16 06:00 Blood Pressure 157/88 07/04/16 06:00 O2 Sat by Pulse Oximetry (%) 95 07/03/16 21:00 Constitutional: Yes: Calm, Mild Distress Cardiovascular: Yes: Regular Rate and Rhythm Respiratory: Yes: Regular, Poor Air Entry Gastrointestinal: Yes: Normal Bowel Sounds, Soft, Other (colostomy functioning) Musculoskeletal: Yes: WNL Extremities: Yes: WNL Wound/Incision: Yes: Dressing Dry and Intact, Other (serous draiange from draiange tube sites) Neurological: Yes: Alert, Oriented Psychiatric: Yes: Alert, Oriented Labs: CBC, BMP 07/04/16 09:40 07/04/16 09:40 INR, PTT INR 1.04 (0.82-1.09) 06/21/16 22:11 Assessment/Plan colonic inflammation diverticulitis nausea abd pain diverticular abscess diverticular perforation hartmans procedure plan patient off of abx wbc has started climbing close monitoring if wbc starts increasing will re start abx
[2016-07-05 09:04] LABS: BASOPHIL 0.3 % (0-2.0); EOSINOPHIL 1.1 % (0-4.5); MCH 32.2 pg (25.7-33.7); MCHC 32.9 g/dl (32.0-36.0); MEAN CELL VOLUME 97.9 fl (80-96); MEAN PLT VOLUME 8.2 fl (7.5-11.1); NEUTROPHILS 85.5 % (42.8-82.8); PLATELET COUNT 428 K/MM3 (134-434); RDW 13.5 % (11.6-15.6); WHITE BLOOD COUNT 13.1 K/mm3 (4.0-10.0)
--- NOTE | 2016-07-05 09:15 | PN ---
Progress Note (short form) - Note Progress Note: Attending Surgeon POD #10 No c/o Tolerating diet VSS AF abdo-ostomy viable and functioning; wound markedly improved WBC 14.2 IMP:stable PLAN: Continue wound care; surgically stable; case d/w Dr. Lit Olivas MD FACS
[2016-07-05 09:33] LABS: CALCIUM 8.3 mg/dL (8.5-10.1); MAGNESIUM 2.1 mg/dL (1.8-2.4); PHOSPHOROUS 2.7 mg/dL (2.5-4.9)
[2016-07-05 09:35] LABS: COCKROFT - GAULT 172.499; CREATININE 0.3 mg/dL (0.55-1.02)
[2016-07-05] MEDS ORDERED: PT OWN MED DRAWER 7, Y5N ONE (09:45)
[2016-07-05] MEDS: HEPARIN NA (PORCINE) 5,000 UNITS/ML 1ML VIAL SQ SCH ×2 (09:48→21:53)
[2016-07-05] MEDS: TIMOLOL 0.5% OPHTHALMIC SOL 5 ML BOTTLE OU SCH ×2 (09:48→21:53)
[2016-07-05] MEDS: PANTOPRAZOLE SODIUM 40 MG/100 ML PRE-DOCKED IVPB SCH (09:49)
--- NOTE | 2016-07-05 12:10 | PN ---
Progress Note, Physician Chief Complaint: Ms Lopez complains of feeling weak. Tolerating diet. No cp, sob, n/v. - Current Medication List Current Medications: Active Medications Acetaminophen (Tylenol -) 650 mg PO Q4H PRN PRN Reason: FEVER OR PAIN Heparin Sodium (Porcine) (Heparin -) 5,000 unit SQ BID [facility] Last Admin: 07/05/16 09:48 Dose: 5,000 unit Hydralazine HCl (Apresoline Injection -) 5 mg IM Q6H PRN PRN Reason: HYPERTENSION Last Admin: 06/28/16 13:31 Dose: 5 mg Ondansetron HCl (Zofran Injection) 4 mg IVPB Q4H PRN PRN Reason: NAUSEA AND/OR VOMITING Last Admin: 07/03/16 08:55 Dose: 4 mg Pantoprazole Sodium (Protonix 40mg Ivpb (Pre-Docked)) 40 mg IVPB DAILY [facility] Last Admin: 07/05/16 09:49 Dose: 40 mg Timolol Maleate (Timoptic 0.5%) 2 drop OU BID [facility] Last Admin: 07/05/16 09:48 Dose: 2 drop Zolpidem Tartrate (Ambien -) 5 mg PO HS PRN Last Admin: 07/03/16 23:44 Dose: 5 mg - Objective Vital Signs: Vital Signs Temperature 98.1 F 07/05/16 09:42 Pulse Rate 83 07/05/16 09:42 Respiratory Rate 18 07/05/16 09:42 Blood Pressure 144/80 07/05/16 09:42 O2 Sat by Pulse Oximetry (%) 95 07/04/16 21:00 Constitutional: Yes: Well Nourished, No Distress, Calm Cardiovascular: Yes: Regular Rate and Rhythm. No: Gallop, Murmur, Rub Respiratory: Yes: Regular, CTA Bilaterally. No: Rales, Rhonchi, Wheezes Gastrointestinal: Yes: Normal Bowel Sounds, Soft. No: Distention, Tenderness Extremities: Yes: WNL Edema: No Labs: CBC, BMP 07/05/16 07:34 07/05/16 07:34 INR, PTT INR 1.04 (0.82-1.09) 06/21/16 22:11 Problem List - Problems (1) Abscess of sigmoid colon due to diverticulitis Code(s): K57.20 - DVTRCLI OF LG INT W PERFORATION AND ABSCESS W/O BLEEDING (2) Hyperlipidemia Code(s): E78.5 - HYPERLIPIDEMIA, UNSPECIFIED (3) Hypertension Code(s): I10 - ESSENTIAL (PRIMARY) HYPERTENSION (4) Sepsis Code(s): A41.9 - SEPSIS, UNSPECIFIED ORGANISM Qualifiers: Sepsis type: Escherichia coli Qualified Code(s): A41.51 - Sepsis due to Escherichia coli [E. coli] (5) Anxiety Code(s): F41.9 - ANXIETY DISORDER, UNSPECIFIED Assessment/Plan (1) Abscess of sigmoid colon due to diverticulitis Assessment/Plan: -colostomy bag in place and working -stable for discharge from surgical standpoint Code(s): K57.20 - DVTRCLI OF LG INT W PERFORATION AND ABSCESS W/O BLEEDING (2) Hypertension Assessment/Plan: -well controlled Code(s): I10 - ESSENTIAL (PRIMARY) HYPERTENSION (3) Hyperlipidemia -holding medications currently -restart on discharge Code(s): E78.5 - HYPERLIPIDEMIA, UNSPECIFIED (4) Sepsis -ID following -currently off antibiotics -leukocytosis improved today -awaiting recommendations from ID concerning further antibiotic treatment -recheck cbc to evaluate leukocytosis (5) Anxiety -avoid anxiolytics as causes somnolence in patient Dispo -discharge to SNF when cleared from ID standpoint
[2016-07-05] MEDS: ACETAMINOPHEN 325 MG TABLET (FP) PO PRN ×2 (14:40→21:58)
[2016-07-05] MEDS: ZOLPIDEM TARTRATE 5 MG TABLET PO PRN (21:53)
[2016-07-06] MEDS: ONDANSETRON 4 MG/2 ML VIAL IVPB PRN ×2 (05:55→14:53)
[2016-07-06] MEDS: ACETAMINOPHEN 325 MG TABLET (FP) PO PRN ×2 (05:55→21:28)
[2016-07-06 08:31] LABS: BASOPHIL 0.4 % (0-2.0); EOSINOPHIL 1.8 % (0-4.5); MCH 32.2 pg (25.7-33.7); MEAN CELL VOLUME 97.6 fl (80-96); MEAN PLT VOLUME 7.5 fl (7.5-11.1); NEUTROPHILS 83.7 % (42.8-82.8); PLATELET COUNT 404 K/MM3 (134-434); RDW 13.8 % (11.6-15.6); WHITE BLOOD COUNT 12.9 K/mm3 (4.0-10.0)
[2016-07-06 09:10] LABS: CALCIUM 7.9 mg/dL (8.5-10.1); COCKROFT - GAULT 258.7485; CREATININE 0.2 mg/dL (0.55-1.02)
[2016-07-06] MEDS: PANTOPRAZOLE SODIUM 40 MG/100 ML PRE-DOCKED IVPB SCH (10:04)
[2016-07-06] MEDS: TIMOLOL 0.5% OPHTHALMIC SOL 5 ML BOTTLE OU SCH ×2 (10:04→21:29)
[2016-07-06] MEDS: HEPARIN NA (PORCINE) 5,000 UNITS/ML 1ML VIAL SQ SCH ×2 (10:04→21:28)
[2016-07-06] MEDS ORDERED: PT OWN MED DRAWER 7, Y5N ONE (11:08)
--- NOTE | 2016-07-06 11:55 | PN ---
Progress Note (short form) - Note Progress Note: Attending Surgeon POD # 11 No c/o; eating better VSS AF abdominal exam no change WBC 12.9 IMP: doing well PLAN: Continue LWC; stable for OPD f/u and txfer to SNF/Rehab. Kalpesh Olivas MD FACS
--- NOTE | 2016-07-06 13:01 | PN ---
Progress Note, Physician History of Present Illness: stable no issues just feels lousy and tired - Current Medication List Current Medications: Active Medications Acetaminophen (Tylenol -) 650 mg PO Q4H PRN PRN Reason: FEVER OR PAIN Last Admin: 07/06/16 05:55 Dose: 650 mg Heparin Sodium (Porcine) (Heparin -) 5,000 unit SQ BID [facility] Last Admin: 07/06/16 10:04 Dose: 5,000 unit Hydralazine HCl (Apresoline Injection -) 5 mg IM Q6H PRN PRN Reason: HYPERTENSION Last Admin: 06/28/16 13:31 Dose: 5 mg Ondansetron HCl (Zofran Injection) 4 mg IVPB Q4H PRN PRN Reason: NAUSEA AND/OR VOMITING Last Admin: 07/06/16 05:55 Dose: 4 mg Pantoprazole Sodium (Protonix 40mg Ivpb (Pre-Docked)) 40 mg IVPB DAILY [facility] Last Admin: 07/06/16 10:04 Dose: 40 mg Timolol Maleate (Timoptic 0.5%) 2 drop OU BID [facility] Last Admin: 07/06/16 10:04 Dose: 2 drop Zolpidem Tartrate (Ambien -) 5 mg PO HS PRN Last Admin: 07/05/16 21:53 Dose: 5 mg - Objective Vital Signs: Vital Signs Temperature 98.1 F 07/06/16 06:00 Pulse Rate 83 07/06/16 06:00 Respiratory Rate 22 07/06/16 06:00 Blood Pressure 145/72 07/06/16 06:00 O2 Sat by Pulse Oximetry (%) 97 07/05/16 21:00 Constitutional: Yes: Calm Cardiovascular: Yes: Regular Rate and Rhythm Respiratory: Yes: Regular, CTA Bilaterally Gastrointestinal: Yes: Normal Bowel Sounds, Soft, Other (colostomy in place functioning) Musculoskeletal: Yes: WNL Extremities: Yes: WNL Neurological: Yes: Alert, Oriented Psychiatric: Yes: Alert, Oriented Labs: CBC, BMP 07/06/16 07:30 07/06/16 07:30 INR, PTT INR 1.04 (0.82-1.09) 06/21/16 22:11 Assessment/Plan colonic inflammation diverticulitis nausea abd pain diverticular abscess diverticular perforation hartmans procedure plan patient off of abx wbc has started climbing close monitoring will see what is wbc tomorrow if high will start abx
--- NOTE | 2016-07-06 13:03 | PN ---
Progress Note, Physician History of Present Illness: stable no issues family in room patient in chair feeling much better wbc trending down marginally - Current Medication List Current Medications: Active Medications Acetaminophen (Tylenol -) 650 mg PO Q4H PRN PRN Reason: FEVER OR PAIN Last Admin: 07/06/16 05:55 Dose: 650 mg Heparin Sodium (Porcine) (Heparin -) 5,000 unit SQ BID [facility] Last Admin: 07/06/16 10:04 Dose: 5,000 unit Hydralazine HCl (Apresoline Injection -) 5 mg IM Q6H PRN PRN Reason: HYPERTENSION Last Admin: 06/28/16 13:31 Dose: 5 mg Ondansetron HCl (Zofran Injection) 4 mg IVPB Q4H PRN PRN Reason: NAUSEA AND/OR VOMITING Last Admin: 07/06/16 05:55 Dose: 4 mg Pantoprazole Sodium (Protonix 40mg Ivpb (Pre-Docked)) 40 mg IVPB DAILY [facility] Last Admin: 07/06/16 10:04 Dose: 40 mg Timolol Maleate (Timoptic 0.5%) 2 drop OU BID [facility] Last Admin: 07/06/16 10:04 Dose: 2 drop Zolpidem Tartrate (Ambien -) 5 mg PO HS PRN Last Admin: 07/05/16 21:53 Dose: 5 mg - Objective Vital Signs: Vital Signs Temperature 98.1 F 07/06/16 06:00 Pulse Rate 83 07/06/16 06:00 Respiratory Rate 22 07/06/16 06:00 Blood Pressure 145/72 07/06/16 06:00 O2 Sat by Pulse Oximetry (%) 97 07/05/16 21:00 Constitutional: Yes: No Distress, Calm Cardiovascular: Yes: Regular Rate and Rhythm Respiratory: Yes: Regular, CTA Bilaterally Gastrointestinal: Yes: Normal Bowel Sounds, Soft, Other (fning colostomy site looks good) Musculoskeletal: Yes: WNL Extremities: Yes: WNL Neurological: Yes: Alert, Oriented Psychiatric: Yes: Alert Labs: CBC, BMP 07/06/16 07:30 07/06/16 07:30 INR, PTT INR 1.04 (0.82-1.09) 06/21/16 22:11 Assessment/Plan colonic inflammation diverticulitis nausea abd pain diverticular abscess diverticular perforation hartmans procedure plan stable off of abx continue to monitor physio rest as per primary
--- NOTE | 2016-07-06 20:19 | PN ---
Progress Note (short form) - Note Progress Note: Feels well No pain No fever or SOB O/E Vital Signs Period Temp Pulse Resp BP Sys/Heredia Pulse Ox Last 24 Hr 97.6 F-99.3 F 83-94 18-22 130-154/65-94 97-98 Hert regular Lungs clear Abd soft Colostomy functioning Ext no edema Current Medications Acetaminophen (Tylenol -) 650 mg PO Q4H PRN PRN Reason: FEVER OR PAIN Last Admin: 07/06/16 05:55 Dose: 650 mg Heparin Sodium (Porcine) (Heparin -) 5,000 unit SQ BID [facility] Last Admin: 07/06/16 10:04 Dose: 5,000 unit Hydralazine HCl (Apresoline Injection -) 5 mg IM Q6H PRN PRN Reason: HYPERTENSION Last Admin: 06/28/16 13:31 Dose: 5 mg Ondansetron HCl (Zofran -) 4 mg PO Q4H PRN Pantoprazole Sodium (Protonix -) 40 mg PO DAILY [facility] Timolol Maleate (Timoptic 0.5%) 2 drop OU BID [facility] Last Admin: 07/06/16 10:04 Dose: 2 drop Zolpidem Tartrate (Ambien -) 5 mg PO HS PRN Last Admin: 07/05/16 21:53 Dose: 5 mg Vital Signs Period Temp Pulse Resp BP Sys/Heredia Pulse Ox Last 24 Hr 97.6 F-99.3 F 83-94 18-22 130-154/65-94 97-98 Laboratory Results - last 24 hr 07/06/16 07/06/16 07:30 07:30 WBC 12.9 H RBC 3.24 L Hgb 10.4 L Hct 31.6 L MCV 97.6 H MCHC 33.0 RDW 13.8 Plt Count 404 MPV 7.5 Neutrophils % 83.7 H Lymphocytes % 5.4 L Monocytes % 8.7 Eosinophils % 1.8 Basophils % 0.4 Sodium 142 Potassium 4.1 Chloride 105 Carbon Dioxide 29 Anion Gap 8 BUN 6 L Creatinine 0.2 L D Random Glucose 74 Calcium 7.9 L Phosphorus 3.0 Magnesium 2.0 Assessment/Plan (1) Abscess of sigmoid colon due to diverticulitis Assessment/Plan: s/p surgery and is doing OK. OOB, Insentive spirometry Code(s): K57.20 - DVTRCLI OF LG INT W PERFORATION AND ABSCESS W/O BLEEDING (2) Hypertension Assessment/Plan: -well controlled Code(s): I10 - ESSENTIAL (PRIMARY) HYPERTENSION (3) Hyperlipidemia -holding medications currently -restart on discharge Code(s): E78.5 - HYPERLIPIDEMIA, UNSPECIFIED (4) Sepsis off ABX (5) Anxiety controlled
[2016-07-06] MEDS: ONDANSETRON 4 MG TABLET PO PRN (21:29)
[2016-07-06] MEDS: ZOLPIDEM TARTRATE 5 MG TABLET PO PRN (21:29)
[2016-07-07] MEDS: ACETAMINOPHEN 325 MG TABLET (FP) PO PRN ×4 (05:48→20:18)
[2016-07-07] MEDS: ONDANSETRON 4 MG TABLET PO PRN ×4 (05:48→20:18)
[2016-07-07] MEDS ORDERED: PT OWN MED DRAWER 7, Y5N ONE (11:24)
[2016-07-07] MEDS: HEPARIN NA (PORCINE) 5,000 UNITS/ML 1ML VIAL SQ SCH ×2 (11:30→21:39)
[2016-07-07] MEDS: TIMOLOL 0.5% OPHTHALMIC SOL 5 ML BOTTLE OU SCH ×2 (11:31→21:39)
[2016-07-07] MEDS: PANTOPRAZOLE 40 MG TABLET (FP) PO SCH (11:31)
--- NOTE | 2016-07-07 12:40 | PN ---
Progress Note (short form) - Note Progress Note: Feels better No fever Colostomy is functioning still did not get OOB O/E Vital Signs Period Temp Pulse Resp BP Sys/Heredia Pulse Ox Last 24 Hr 97.6 F-99.3 F 82-94 18-20 135-154/70-94 98 Not pale Not icteric Heart regular Lungs clear Abd soft BS heard Ext no edema Current Medications Acetaminophen (Tylenol -) 650 mg PO Q4H PRN PRN Reason: FEVER OR PAIN Last Admin: 07/07/16 11:29 Dose: 650 mg Heparin Sodium (Porcine) (Heparin -) 5,000 unit SQ BID [facility] Last Admin: 07/07/16 11:30 Dose: 5,000 unit Hydralazine HCl (Apresoline Injection -) 5 mg IM Q6H PRN PRN Reason: HYPERTENSION Last Admin: 06/28/16 13:31 Dose: 5 mg Ondansetron HCl (Zofran -) 4 mg PO Q4H PRN Last Admin: 07/07/16 11:31 Dose: 4 mg Pantoprazole Sodium (Protonix -) 40 mg PO DAILY [facility] Last Admin: 07/07/16 11:31 Dose: 40 mg Timolol Maleate (Timoptic 0.5%) 2 drop OU BID [facility] Last Admin: 07/07/16 11:31 Dose: 2 drop Zolpidem Tartrate (Ambien -) 5 mg PO HS PRN Last Admin: 07/06/16 21:29 Dose: 5 mg Assessment/Plan (1) Abscess of sigmoid colon due to diverticulitis Assessment/Plan: s/p surgery and is doing OK. OOB, Insentive spirometry PT and d/c planing Code(s): K57.20 - DVTRCLI OF LG INT W PERFORATION AND ABSCESS W/O BLEEDING (2) Hypertension Assessment/Plan: -well controlled Code(s): I10 - ESSENTIAL (PRIMARY) HYPERTENSION (3) Hyperlipidemia -holding medications currently -restart on discharge Code(s): E78.5 - HYPERLIPIDEMIA, UNSPECIFIED (4) Sepsis off ABX (5) Anxiety controlled
[2016-07-08] MEDS: ACETAMINOPHEN 325 MG TABLET (FP) PO PRN ×4 (02:18→21:48)
[2016-07-08] MEDS: ONDANSETRON 4 MG TABLET PO PRN ×3 (02:19→10:13)
[2016-07-08] MEDS ORDERED: PT OWN MED DRAWER 7, Y5N ONE ×2 (10:01→21:36)
[2016-07-08] MEDS: PANTOPRAZOLE 40 MG TABLET (FP) PO SCH (10:13)
[2016-07-08] MEDS: HEPARIN NA (PORCINE) 5,000 UNITS/ML 1ML VIAL SQ SCH (10:14)
[2016-07-08] MEDS: TIMOLOL 0.5% OPHTHALMIC SOL 5 ML BOTTLE OU SCH ×2 (10:14→21:49)
[2016-07-08 12:42] LABS: MCH 32.2 pg (25.7-33.7); MCHC 33.3 g/dl (32.0-36.0); MEAN CELL VOLUME 96.7 fl (80-96); MEAN PLT VOLUME 7.5 fl (7.5-11.1); PLATELET COUNT 428 K/MM3 (134-434); RDW 13.5 % (11.6-15.6); WHITE BLOOD COUNT 16.1 K/mm3 (4.0-10.0)
--- NOTE | 2016-07-08 13:49 | PN ---
Progress Note, Physician Chief Complaint: Ms Lopez is without complaint today but reluctant to be discharged. No cp, sob, n/v. Tolerating diet. - Current Medication List Current Medications: Active Medications Acetaminophen (Tylenol -) 650 mg PO Q4H PRN PRN Reason: FEVER OR PAIN Last Admin: 07/08/16 10:13 Dose: 650 mg Heparin Sodium (Porcine) (Heparin -) 5,000 unit SQ BID [facility] Last Admin: 07/08/16 10:14 Dose: 5,000 unit Hydralazine HCl (Apresoline Injection -) 5 mg IM Q6H PRN PRN Reason: HYPERTENSION Last Admin: 06/28/16 13:31 Dose: 5 mg Ondansetron HCl (Zofran -) 4 mg PO Q4H PRN Last Admin: 07/08/16 10:13 Dose: 4 mg Pantoprazole Sodium (Protonix -) 40 mg PO DAILY [facility] Last Admin: 07/08/16 10:13 Dose: 40 mg Timolol Maleate (Timoptic 0.5%) 2 drop OU BID [facility] Last Admin: 07/08/16 10:14 Dose: 2 drop - Objective Vital Signs: Vital Signs Temperature 98.7 F 07/08/16 10:00 Pulse Rate 89 07/08/16 10:00 Respiratory Rate 20 07/07/16 21:00 Blood Pressure 145/78 07/08/16 10:00 O2 Sat by Pulse Oximetry (%) 97 07/08/16 09:00 Constitutional: Yes: Well Nourished, No Distress, Calm Cardiovascular: Yes: Regular Rate and Rhythm. No: Gallop, Murmur, Rub Respiratory: Yes: Regular, CTA Bilaterally. No: Rales, Rhonchi, Wheezes Gastrointestinal: Yes: Normal Bowel Sounds, Soft. No: Distention, Tenderness Extremities: Yes: WNL Edema: No Labs: CBC, BMP 07/08/16 12:21 07/06/16 07:30 INR, PTT INR 1.04 (0.82-1.09) 06/21/16 22:11 Problem List - Problems (1) Abscess of sigmoid colon due to diverticulitis Code(s): K57.20 - DVTRCLI OF LG INT W PERFORATION AND ABSCESS W/O BLEEDING (2) Hyperlipidemia Code(s): E78.5 - HYPERLIPIDEMIA, UNSPECIFIED (3) Hypertension Code(s): I10 - ESSENTIAL (PRIMARY) HYPERTENSION (4) Sepsis Code(s): A41.9 - SEPSIS, UNSPECIFIED ORGANISM Qualifiers: Sepsis type: Escherichia coli Qualified Code(s): A41.51 - Sepsis due to Escherichia coli [E. coli] (5) Anxiety Code(s): F41.9 - ANXIETY DISORDER, UNSPECIFIED Assessment/Plan (1) Abscess of sigmoid colon due to diverticulitis Assessment/Plan: -colostomy bag in place and working -stable for discharge from surgical standpoint Code(s): K57.20 - DVTRCLI OF LG INT W PERFORATION AND ABSCESS W/O BLEEDING (2) Hypertension Assessment/Plan: -well controlled Code(s): I10 - ESSENTIAL (PRIMARY) HYPERTENSION (3) Hyperlipidemia -holding medications currently -restart on discharge Code(s): E78.5 - HYPERLIPIDEMIA, UNSPECIFIED (4) Sepsis -patient with increased leukocytosis -without fevers or other signs of sepsis -however not a good explanation for increase in WBCs -case discussed with ID -obtain CT scan to evaluate for fluid collection/abscess (5) Anxiety -avoid anxiolytics as causes somnolence in patient
--- NOTE | 2016-07-08 14:05 | PN ---
Addendum entered and electronically signed by Christie Harrington PA 07/08/16 14:28 : f/u WBC Original Note: Progress Note (short form) - Note Progress Note: Surgery- Dr. Olivas Patient seen and examined this morning. Patient states she is feeling much better. Her pain is controlled, she is tolerating her diet, appetite improving , and urinating without issue. She has been OOB to chair and is looking forward to walking with PT. She denies fever, chills, N/V. Last Vital Signs Temp Pulse Resp BP Pulse Ox 98.7 F 89 20 145/78 97 07/08/16 10:00 07/08/16 10:00 07/07/16 21:00 07/08/16 10:07/08/16 09:00 CBC, BMP 07/08/16 12:21 07/06/16 07:30 Exam: Gen: NAD, more alert, more comfortable Abd: soft, tenderness improved, midline wound with less drainage Problem List - Problems (1) Abscess of sigmoid colon due to diverticulitis Assessment/Plan: s/p Pennie's procedure, sigmoid resection with end-colostomy 06/25 tolerating diet continue dressing changes, LWC PT awaiting transfer to SNF/rehab Code(s): K57.20 - DVTRCLI OF LG INT W PERFORATION AND ABSCESS W/O BLEEDING
[2016-07-08 16:07] LABS: PLATELET ESTIMATE ADEQUATE (NORMAL)
--- NOTE | 2016-07-08 17:05 | PN ---
Progress Note, Physician History of Present Illness: patient not feeling well patient c/o of chills - Current Medication List Current Medications: Active Medications Acetaminophen (Tylenol -) 650 mg PO Q4H PRN PRN Reason: FEVER OR PAIN Last Admin: 07/08/16 10:13 Dose: 650 mg Hydralazine HCl (Apresoline Injection -) 5 mg IM Q6H PRN PRN Reason: HYPERTENSION Last Admin: 06/28/16 13:31 Dose: 5 mg Ondansetron HCl (Zofran -) 4 mg PO Q4H PRN Last Admin: 07/08/16 10:13 Dose: 4 mg Pantoprazole Sodium (Protonix -) 40 mg PO DAILY [facility] Last Admin: 07/08/16 10:13 Dose: 40 mg Timolol Maleate (Timoptic 0.5%) 2 drop OU BID [facility] Last Admin: 07/08/16 10:14 Dose: 2 drop - Objective Vital Signs: Vital Signs Temperature 98.6 F 07/08/16 15:50 Pulse Rate 97 H 07/08/16 15:50 Respiratory Rate 20 07/07/16 21:00 Blood Pressure 155/78 07/08/16 15:50 O2 Sat by Pulse Oximetry (%) 97 07/08/16 09:00 Constitutional: Yes: Mild Distress, Other Cardiovascular: Yes: Regular Rate and Rhythm Respiratory: Yes: Regular, CTA Bilaterally Gastrointestinal: Yes: Soft, Hypoactive Bowel Sounds, Other (dsg dry) Musculoskeletal: Yes: WNL Extremities: Yes: WNL Wound/Incision: Yes: Dressing Dry and Intact Neurological: Yes: Alert, Oriented Psychiatric: Yes: Alert, Oriented Labs: CBC, BMP 07/08/16 12:21 07/06/16 07:30 INR, PTT INR 1.04 (0.82-1.09) 06/21/16 22:11 Assessment/Plan colonic inflammation diverticulitis nausea abd pain diverticular abscess diverticular perforation hartmans procedure way patient is behaving i am worried patient is going into sepsis plan will restart abx ct abd and chest after ct scan will decide on further mgmt continue to monitor closely
[2016-07-08] MEDS: PIPERACILLIN/TAZOB 3.375 GM 50 ML IVPB SCH (17:49)
[2016-07-09] MEDS: PIPERACILLIN/TAZOB 3.375 GM 50 ML IVPB SCH ×3 (02:46→18:01)
[2016-07-09] MEDS: ONDANSETRON 4 MG TABLET PO PRN (03:54)
[2016-07-09] MEDS: ACETAMINOPHEN 325 MG TABLET (FP) PO PRN ×2 (03:54→22:37)
[2016-07-09 09:08] LABS: BASOPHIL 0.7 % (0-2.0); EOSINOPHIL 0.9 % (0-4.5); MCHC 33.1 g/dl (32.0-36.0); MEAN CELL VOLUME 96.7 fl (80-96); MEAN PLT VOLUME 7.6 fl (7.5-11.1); PLATELET COUNT 435 K/MM3 (134-434); RDW 13.8 % (11.6-15.6); WHITE BLOOD COUNT 15.8 K/mm3 (4.0-10.0)
--- NOTE | 2016-07-09 09:33 | PN ---
Addendum entered and electronically signed by Miguel Chen PA 07/09/16 09:38: WBC rise most likely secondary to findings indicated on CT scan. CT : Increase in bilateral pleural effusions compared to previous study. Bibasilar atelectatic changes and can't r/o pneumonic infiltrates. Aggressive pulmonary toileting Aggressive mobilization Original Note: Progress Note (short form) - Note Progress Note: POD #14 Alert. Resting in position of comfort. States she is getting oob and ambulating. Voiding. Still c/o diarrhea. Tolerating PO diet. Denies n/v/f/c, CP or SOB. AVSS. Afebrile. WBC 15.8 (16.1) Gen: alert. nad. Abd: midline incision open with few intermittent maxine. Wound open superior/ middle/inferior. Middle portion with stable wound dehis. LLQ ostomy functioning. Problem List - Problems (1) Perforated sigmoid colon Assessment/Plan: POD #14 s/p Pennie's procedure, sigmoid resection with end-colostomy Dressing changed on rounds. Tolerating PO diet OOB and ambulate DC planning to rehab Cont medical management Code(s): K63.1 - PERFORATION OF INTESTINE (NONTRAUMATIC)
[2016-07-09 09:34] LABS: CALCIUM 8.3 mg/dL (8.5-10.1); COCKROFT - GAULT 172.499; CREATININE 0.3 mg/dL (0.55-1.02); MAGNESIUM 1.8 mg/dL (1.8-2.4); PHOSPHOROUS 3.1 mg/dL (2.5-4.9)
[2016-07-09] MEDS ORDERED: PT OWN MED DRAWER 7, Y5N ONE ×2 (10:24→22:17)
[2016-07-09] MEDS: TIMOLOL 0.5% OPHTHALMIC SOL 5 ML BOTTLE OU SCH ×2 (10:34→22:38)
[2016-07-09] MEDS: PANTOPRAZOLE 40 MG TABLET (FP) PO SCH (10:34)
--- NOTE | 2016-07-09 12:37 | PN ---
Progress Note, Physician History of Present Illness: patient feeling much better than yesterday no complaints' comfortable - Current Medication List Current Medications: Active Medications Acetaminophen (Tylenol -) 650 mg PO Q4H PRN PRN Reason: FEVER OR PAIN Last Admin: 07/09/16 03:54 Dose: 650 mg Hydralazine HCl (Apresoline Injection -) 5 mg IM Q6H PRN PRN Reason: HYPERTENSION Last Admin: 06/28/16 13:31 Dose: 5 mg Piperacillin Sod/Tazobactam Sod (Zosyn 3.375gm Ivpb (Pre-Docked)) 50 mls @ 100 mls/hr IVPB Q8H-IV [facility] PRN Reason: Protocol Last Admin: 07/09/16 10:34 Dose: 100 mls/hr Ondansetron HCl (Zofran -) 4 mg PO Q4H PRN Last Admin: 07/09/16 03:54 Dose: 4 mg Pantoprazole Sodium (Protonix -) 40 mg PO DAILY [facility] Last Admin: 07/09/16 10:34 Dose: 40 mg Timolol Maleate (Timoptic 0.5%) 2 drop OU BID [facility] Last Admin: 07/09/16 10:34 Dose: 2 drop - Objective Vital Signs: Vital Signs Temperature 98.4 F 07/09/16 06:00 Pulse Rate 86 07/09/16 06:00 Respiratory Rate 20 07/09/16 06:00 Blood Pressure 138/91 07/09/16 06:00 O2 Sat by Pulse Oximetry (%) 97 07/08/16 21:00 Constitutional: Yes: No Distress, Calm Cardiovascular: Yes: Regular Rate and Rhythm Respiratory: Yes: Regular, CTA Bilaterally Gastrointestinal: Yes: Normal Bowel Sounds, Soft, Other (fning colostomy) Musculoskeletal: Yes: WNL Extremities: Yes: WNL Neurological: Yes: Alert, Oriented Psychiatric: Yes: Alert, Oriented Labs: CBC, BMP 07/09/16 08:00 07/09/16 08:00 INR, PTT INR 1.04 (0.82-1.09) 06/21/16 22:11 Assessment/Plan colonic inflammation diverticulitis nausea abd pain diverticular abscess diverticular perforation hartmans procedure plan continue abx rest continue to monitor no issues incentive aster
--- NOTE | 2016-07-09 14:03 | PN ---
Progress Note, Physician Chief Complaint: Ms Lopez says she is feeling much better today. No cp, sob, n/v. Tolerating diet. - Current Medication List Current Medications: Active Medications Acetaminophen (Tylenol -) 650 mg PO Q4H PRN PRN Reason: FEVER OR PAIN Last Admin: 07/09/16 03:54 Dose: 650 mg Hydralazine HCl (Apresoline Injection -) 5 mg IM Q6H PRN PRN Reason: HYPERTENSION Last Admin: 06/28/16 13:31 Dose: 5 mg Piperacillin Sod/Tazobactam Sod (Zosyn 3.375gm Ivpb (Pre-Docked)) 50 mls @ 100 mls/hr IVPB Q8H-IV [facility] PRN Reason: Protocol Last Admin: 07/09/16 10:34 Dose: 100 mls/hr Ondansetron HCl (Zofran -) 4 mg PO Q4H PRN Last Admin: 07/09/16 03:54 Dose: 4 mg Pantoprazole Sodium (Protonix -) 40 mg PO DAILY [facility] Last Admin: 07/09/16 10:34 Dose: 40 mg Timolol Maleate (Timoptic 0.5%) 2 drop OU BID [facility] Last Admin: 07/09/16 10:34 Dose: 2 drop - Objective Vital Signs: Vital Signs Temperature 97.5 F L 07/09/16 13:49 Pulse Rate 93 H 07/09/16 13:49 Respiratory Rate 20 07/09/16 13:49 Blood Pressure 138/91 07/09/16 06:00 O2 Sat by Pulse Oximetry (%) 97 07/08/16 21:00 Constitutional: Yes: Well Nourished, No Distress, Calm Cardiovascular: Yes: Regular Rate and Rhythm. No: Gallop, Murmur, Rub Respiratory: Yes: Regular, CTA Bilaterally. No: Rales, Rhonchi, Wheezes Gastrointestinal: Yes: Normal Bowel Sounds, Soft, Other (colostomy bag in place) . No: Distention, Tenderness Extremities: Yes: WNL Edema: No Labs: CBC, BMP 07/09/16 08:00 07/09/16 08:00 INR, PTT INR 1.04 (0.82-1.09) 06/21/16 22:11 Problem List - Problems (1) Abscess of sigmoid colon due to diverticulitis Code(s): K57.20 - DVTRCLI OF LG INT W PERFORATION AND ABSCESS W/O BLEEDING (2) Hyperlipidemia Code(s): E78.5 - HYPERLIPIDEMIA, UNSPECIFIED (3) Hypertension Code(s): I10 - ESSENTIAL (PRIMARY) HYPERTENSION (4) Sepsis Code(s): A41.9 - SEPSIS, UNSPECIFIED ORGANISM Qualifiers: Sepsis type: Escherichia coli Qualified Code(s): A41.51 - Sepsis due to Escherichia coli [E. coli] (5) Anxiety Code(s): F41.9 - ANXIETY DISORDER, UNSPECIFIED Assessment/Plan (1) Abscess of sigmoid colon due to diverticulitis Assessment/Plan: -colostomy bag in place and working -CT scan reviewed, with small fluid collection -continue IV antibiotics -surgery following Code(s): K57.20 - DVTRCLI OF LG INT W PERFORATION AND ABSCESS W/O BLEEDING (2) Hypertension Assessment/Plan: -well controlled Code(s): I10 - ESSENTIAL (PRIMARY) HYPERTENSION (3) Hyperlipidemia -holding medications currently -restart on discharge Code(s): E78.5 - HYPERLIPIDEMIA, UNSPECIFIED (4) Sepsis -appreciate ID assistance -continue zosyn (5) Anxiety -avoid anxiolytics as causes somnolence in patient
[2016-07-10] MEDS: PIPERACILLIN/TAZOB 3.375 GM 50 ML IVPB SCH ×3 (02:35→17:37)
[2016-07-10] MEDS: ONDANSETRON 4 MG TABLET PO PRN ×2 (04:43→23:58)
[2016-07-10 08:10] LABS: BASOPHIL 0.7 % (0-2.0); EOSINOPHIL 1.5 % (0-4.5); MCH 31.8 pg (25.7-33.7); MCHC 33.3 g/dl (32.0-36.0); MEAN CELL VOLUME 95.4 fl (80-96); MEAN PLT VOLUME 7.5 fl (7.5-11.1); PLATELET COUNT 399 K/MM3 (134-434); RDW 13.6 % (11.6-15.6)
--- NOTE | 2016-07-10 09:00 | PN ---
Progress Note (short form) - Note Progress Note: POD #15 Alert. Sitting in chair at bedside. States she's oob and ambulating unassisted. Tolerating PO diet. Voiding spontaneously. Ostomy functioning. States she doesn't need to go to rehab anymore as she can care for herself. Denies n/v/f/c, CP or SOB. AVSS. Afebrile. WBC 15 (15.8) Gen: alert. nad. Abd: midline incision open with few intermittent maxine. Wound open superior/ middle/inferior. Middle portion with stable wound dehis. Ostomy functioning. Problem List - Problems (1) Perforated sigmoid colon Assessment/Plan: POD #15 s/p Pennie's procedure, sigmoid resection with end-colostomy Dressing changed on rounds. Tolerating PO diet Cont to be OOB and ambulate WBC trending down, switch patient to PO antibiotic prior to dc and length of time to be determined by ID Cont medical management Code(s): K63.1 - PERFORATION OF INTESTINE (NONTRAUMATIC)
[2016-07-10 09:18] LABS: CALCIUM 8.1 mg/dL (8.5-10.1); COCKROFT - GAULT 172.499; CREATININE 0.3 mg/dL (0.55-1.02); MAGNESIUM 1.7 mg/dL (1.8-2.4); PHOSPHOROUS 2.8 mg/dL (2.5-4.9)
[2016-07-10] MEDS: TIMOLOL 0.5% OPHTHALMIC SOL 5 ML BOTTLE OU SCH ×2 (11:35→21:12)
[2016-07-10] MEDS: PANTOPRAZOLE 40 MG TABLET (FP) PO SCH (11:35)
--- NOTE | 2016-07-10 12:31 | PN ---
Progress Note, Physician History of Present Illness: doing much better no new issues - Current Medication List Current Medications: Active Medications Acetaminophen (Tylenol -) 650 mg PO Q4H PRN PRN Reason: FEVER OR PAIN Last Admin: 07/09/16 22:37 Dose: 650 mg Hydralazine HCl (Apresoline Injection -) 5 mg IM Q6H PRN PRN Reason: HYPERTENSION Last Admin: 06/28/16 13:31 Dose: 5 mg Piperacillin Sod/Tazobactam Sod (Zosyn 3.375gm Ivpb (Pre-Docked)) 50 mls @ 100 mls/hr IVPB Q8H-IV RAVINDER PRN Reason: Protocol Last Admin: 07/10/16 11:35 Dose: 100 mls/hr Ondansetron HCl (Zofran -) 4 mg PO Q4H PRN Last Admin: 07/10/16 04:43 Dose: 4 mg Pantoprazole Sodium (Protonix -) 40 mg PO DAILY [facility] Last Admin: 07/10/16 11:35 Dose: 40 mg Timolol Maleate (Timoptic 0.5%) 2 drop OU BID RAVINDER Last Admin: 07/10/16 11:35 Dose: 2 drop - Objective Vital Signs: Vital Signs Temperature 98.8 F 07/10/16 06:00 Pulse Rate 90 07/10/16 06:00 Respiratory Rate 20 07/10/16 06:00 Blood Pressure 146/76 07/10/16 06:00 O2 Sat by Pulse Oximetry (%) 95 07/09/16 21:00 Constitutional: Yes: No Distress, Calm Cardiovascular: Yes: Regular Rate and Rhythm Respiratory: Yes: Regular, Poor Air Entry, Rhonchi Gastrointestinal: Yes: Normal Bowel Sounds, Soft, Other (colostomy fning) Musculoskeletal: Yes: WNL Extremities: Yes: WNL Wound/Incision: Yes: Dressing Dry and Intact, Other (opening at few places) Neurological: Yes: Alert, Oriented Psychiatric: Yes: Alert, Oriented Labs: CBC, BMP 07/10/16 07:03 07/10/16 07:03 INR, PTT INR 1.04 (0.82-1.09) 06/21/16 22:11 Assessment/Plan colonic inflammation diverticulitis nausea abd pain diverticular abscess diverticular perforation hartmans procedure leukocytoisis plan continue abx continue to monitor rest as per primary
--- NOTE | 2016-07-10 14:51 | PN ---
Progress Note, Physician Chief Complaint: Ms Lopez says she is feeling well. Does not want to go to SNF but is asking about home with VNS. No cp, sob, n/v. - Current Medication List Current Medications: Active Medications Acetaminophen (Tylenol -) 650 mg PO Q4H PRN PRN Reason: FEVER OR PAIN Last Admin: 07/09/16 22:37 Dose: 650 mg Hydralazine HCl (Apresoline Injection -) 5 mg IM Q6H PRN PRN Reason: HYPERTENSION Last Admin: 06/28/16 13:31 Dose: 5 mg Piperacillin Sod/Tazobactam Sod (Zosyn 3.375gm Ivpb (Pre-Docked)) 50 mls @ 100 mls/hr IVPB Q8H-IV RAVINDER PRN Reason: Protocol Last Admin: 07/10/16 11:35 Dose: 100 mls/hr Ondansetron HCl (Zofran -) 4 mg PO Q4H PRN Last Admin: 07/10/16 04:43 Dose: 4 mg Pantoprazole Sodium (Protonix -) 40 mg PO DAILY RAVINDER Last Admin: 07/10/16 11:35 Dose: 40 mg Timolol Maleate (Timoptic 0.5%) 2 drop OU BID RAVINDER Last Admin: 07/10/16 11:35 Dose: 2 drop - Objective Vital Signs: Vital Signs Temperature 99.0 F 07/10/16 14:00 Pulse Rate 91 H 07/10/16 14:00 Respiratory Rate 22 07/10/16 14:00 Blood Pressure 146/76 07/10/16 06:00 O2 Sat by Pulse Oximetry (%) 95 07/09/16 21:00 Constitutional: Yes: Well Nourished, No Distress, Calm Cardiovascular: Yes: Regular Rate and Rhythm. No: Gallop, Murmur, Rub Respiratory: Yes: Regular, CTA Bilaterally. No: Rales, Rhonchi, Wheezes Gastrointestinal: Yes: Normal Bowel Sounds, Soft. No: Distention, Tenderness Extremities: Yes: WNL Edema: No Labs: CBC, BMP 07/10/16 07:03 07/10/16 07:03 INR, PTT INR 1.04 (0.82-1.09) 06/21/16 22:11 Problem List - Problems (1) Abscess of sigmoid colon due to diverticulitis Code(s): K57.20 - DVTRCLI OF LG INT W PERFORATION AND ABSCESS W/O BLEEDING (2) Hyperlipidemia Code(s): E78.5 - HYPERLIPIDEMIA, UNSPECIFIED (3) Hypertension Code(s): I10 - ESSENTIAL (PRIMARY) HYPERTENSION (4) Sepsis Code(s): A41.9 - SEPSIS, UNSPECIFIED ORGANISM Qualifiers: Sepsis type: Escherichia coli Qualified Code(s): A41.51 - Sepsis due to Escherichia coli [E. coli] (5) Anxiety Code(s): F41.9 - ANXIETY DISORDER, UNSPECIFIED Assessment/Plan (1) Abscess of sigmoid colon due to diverticulitis Assessment/Plan: -colostomy bag in place and working -CT scan reviewed, with small fluid collection -continue IV antibiotics -surgery following Code(s): K57.20 - DVTRCLI OF LG INT W PERFORATION AND ABSCESS W/O BLEEDING (2) Hypertension Assessment/Plan: -well controlled Code(s): I10 - ESSENTIAL (PRIMARY) HYPERTENSION (3) Hyperlipidemia -holding medications currently -restart on discharge Code(s): E78.5 - HYPERLIPIDEMIA, UNSPECIFIED (4) Sepsis -appreciate ID assistance -continue zosyn -leukocytosis slightly improved (5) Anxiety -avoid anxiolytics as causes somnolence in patient -however anxiety is much improved currently
[2016-07-10] MEDS: ACETAMINOPHEN 325 MG TABLET (FP) PO PRN (23:57)
[2016-07-11] MEDS: PIPERACILLIN/TAZOB 3.375 GM 50 ML IVPB SCH ×3 (02:24→18:13)
[2016-07-11 07:55] LABS: BASOPHIL 0.4 % (0-2.0); EOSINOPHIL 1.6 % (0-4.5); MCH 31.7 pg (25.7-33.7); MCHC 33.1 g/dl (32.0-36.0); MEAN CELL VOLUME 95.8 fl (80-96); MEAN PLT VOLUME 7.5 fl (7.5-11.1); NEUTROPHILS 81.7 % (42.8-82.8); PLATELET COUNT 347 K/MM3 (134-434); RDW 13.4 % (11.6-15.6); WHITE BLOOD COUNT 14.5 K/mm3 (4.0-10.0)
[2016-07-11 08:33] LABS: CALCIUM 8.3 mg/dL (8.5-10.1); COCKROFT - GAULT 172.499; CREATININE 0.3 mg/dL (0.55-1.02); MAGNESIUM 1.8 mg/dL (1.8-2.4); PHOSPHOROUS 3.4 mg/dL (2.5-4.9)
--- NOTE | 2016-07-11 09:04 | PN ---
Progress Note (short form) - Note Progress Note: Surgery- Dr. Olivas Patient seen and examined. Patient states she continues to feel better. Pain is controlled and she is tolerating her diet. She has been ambulating in the halls with a walker and is planning to go home instead of to rehab. She denies fever, chills. 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
--- NOTE | 2016-07-11 11:10 | PN ---
Progress Note, Physician Chief Complaint: Ms Lopez says she is doing well. No cp, sob, n/v. Tolerating diet and ambulating in [place]. - Current Medication List Current Medications: Active Medications Acetaminophen (Tylenol -) 650 mg PO Q4H PRN PRN Reason: FEVER OR PAIN Last Admin: 07/10/16 23:57 Dose: 650 mg Hydralazine HCl (Apresoline Injection -) 5 mg IM Q6H PRN PRN Reason: HYPERTENSION Last Admin: 06/28/16 13:31 Dose: 5 mg Piperacillin Sod/Tazobactam Sod (Zosyn 3.375gm Ivpb (Pre-Docked)) 50 mls @ 100 mls/hr IVPB Q8H-IV RAVINDER PRN Reason: Protocol Last Admin: 07/11/16 02:24 Dose: 100 mls/hr Ondansetron HCl (Zofran -) 4 mg PO Q4H PRN Last Admin: 07/10/16 23:58 Dose: 4 mg Pantoprazole Sodium (Protonix -) 40 mg PO DAILY RAVINDER Last Admin: 07/10/16 11:35 Dose: 40 mg Timolol Maleate (Timoptic 0.5%) 2 drop OU BID RAVINDER Last Admin: 07/10/16 21:12 Dose: 2 drop - Objective Vital Signs: Vital Signs Temperature 98.1 F 07/11/16 06:09 Pulse Rate 88 07/11/16 06:09 Respiratory Rate 20 07/11/16 06:09 Blood Pressure 158/80 07/11/16 06:09 O2 Sat by Pulse Oximetry (%) 97 07/10/16 21:00 Constitutional: Yes: Well Nourished, No Distress, Calm Cardiovascular: Yes: Regular Rate and Rhythm. No: Gallop, Murmur, Rub Respiratory: Yes: Regular, CTA Bilaterally. No: Rales, Rhonchi, Wheezes Gastrointestinal: Yes: Normal Bowel Sounds, Soft, Other (colostomy bag in place) . No: Distention, Tenderness Extremities: Yes: WNL Edema: No Labs: CBC, BMP 07/11/16 06:30 07/11/16 06:30 INR, PTT INR 1.04 (0.82-1.09) 06/21/16 22:11 Problem List - Problems (1) Abscess of sigmoid colon due to diverticulitis Code(s): K57.20 - DVTRCLI OF LG INT W PERFORATION AND ABSCESS W/O BLEEDING (2) Hyperlipidemia Code(s): E78.5 - HYPERLIPIDEMIA, UNSPECIFIED (3) Hypertension Code(s): I10 - ESSENTIAL (PRIMARY) HYPERTENSION (4) Sepsis Code(s): A41.9 - SEPSIS, UNSPECIFIED ORGANISM Qualifiers: Sepsis type: Escherichia coli Qualified Code(s): A41.51 - Sepsis due to Escherichia coli [E. coli] (5) Anxiety Code(s): F41.9 - ANXIETY DISORDER, UNSPECIFIED Assessment/Plan (1) Abscess of sigmoid colon due to diverticulitis Assessment/Plan: -colostomy bag in place and working -CT scan reviewed, with small fluid collection -continue IV antibiotics -surgery following -patient to discuss with surgery about wound care if planning to go home with VNS Code(s): K57.20 - DVTRCLI OF LG INT W PERFORATION AND ABSCESS W/O BLEEDING (2) Hypertension Assessment/Plan: -well controlled Code(s): I10 - ESSENTIAL (PRIMARY) HYPERTENSION (3) Hyperlipidemia -holding medications currently -restart on discharge Code(s): E78.5 - HYPERLIPIDEMIA, UNSPECIFIED (4) Sepsis -appreciate ID assistance -continue zosyn -leukocytosis improving -plan for discharge when safe from ID standpoint (5) Anxiety -avoid anxiolytics as causes somnolence in patient -however anxiety is much improved currently
[2016-07-11] MEDS: PANTOPRAZOLE 40 MG TABLET (FP) PO SCH (11:59)
[2016-07-11] MEDS: TIMOLOL 0.5% OPHTHALMIC SOL 5 ML BOTTLE OU SCH ×2 (11:59→21:08)
--- NOTE | 2016-07-11 17:09 | PN ---
Progress Note, Physician History of Present Illness: continues to do much better no complaints calm - Current Medication List Current Medications: Active Medications Acetaminophen (Tylenol -) 650 mg PO Q4H PRN PRN Reason: FEVER OR PAIN Last Admin: 07/10/16 23:57 Dose: 650 mg Hydralazine HCl (Apresoline Injection -) 5 mg IM Q6H PRN PRN Reason: HYPERTENSION Last Admin: 06/28/16 13:31 Dose: 5 mg Piperacillin Sod/Tazobactam Sod (Zosyn 3.375gm Ivpb (Pre-Docked)) 50 mls @ 100 mls/hr IVPB Q8H-IV RAVINDER PRN Reason: Protocol Last Admin: 07/11/16 11:59 Dose: 100 mls/hr Ondansetron HCl (Zofran -) 4 mg PO Q4H PRN Last Admin: 07/10/16 23:58 Dose: 4 mg Pantoprazole Sodium (Protonix -) 40 mg PO DAILY [facility] Last Admin: 07/11/16 11:59 Dose: 40 mg Timolol Maleate (Timoptic 0.5%) 2 drop OU BID RAVINDER Last Admin: 07/11/16 11:59 Dose: 2 drop - Objective Vital Signs: Vital Signs Temperature 98.1 F 07/11/16 14:00 Pulse Rate 94 H 07/11/16 14:00 Respiratory Rate 20 07/11/16 14:00 Blood Pressure 130/69 07/11/16 09:00 O2 Sat by Pulse Oximetry (%) 97 07/11/16 09:00 Constitutional: Yes: No Distress, Calm Cardiovascular: Yes: Regular Rate and Rhythm Respiratory: Yes: Regular, CTA Bilaterally Gastrointestinal: Yes: Normal Bowel Sounds, Soft Musculoskeletal: Yes: WNL Extremities: Yes: WNL Wound/Incision: Yes: Dressing Dry and Intact, Other Neurological: Yes: Alert, Oriented Psychiatric: Yes: Alert, Oriented Labs: CBC, BMP 07/11/16 06:30 07/11/16 06:30 INR, PTT INR 1.04 (0.82-1.09) 06/21/16 22:11 Assessment/Plan colonic inflammation diverticulitis nausea abd pain diverticular abscess diverticular perforation hartmans procedure leukocytoisis plan continue abx continue to monitor rest as per primary wbc with a very slow downward trend
[2016-07-11] MEDS: ACETAMINOPHEN 325 MG TABLET (FP) PO PRN (21:08)
[2016-07-11] MEDS: ONDANSETRON 4 MG TABLET PO PRN (21:08)
[2016-07-12] MEDS: ACETAMINOPHEN 325 MG TABLET (FP) PO PRN ×3 (01:54→23:33)
[2016-07-12] MEDS: PIPERACILLIN/TAZOB 3.375 GM 50 ML IVPB SCH ×3 (02:55→18:08)
[2016-07-12 07:28] LABS: BASOPHIL 0.5 % (0-2.0); EOSINOPHIL 1.8 % (0-4.5); MCH 31.4 pg (25.7-33.7); MCHC 32.6 g/dl (32.0-36.0); MEAN CELL VOLUME 96.1 fl (80-96); MEAN PLT VOLUME 7.3 fl (7.5-11.1); NEUTROPHILS 83.6 % (42.8-82.8); PLATELET COUNT 325 K/MM3 (134-434); RDW 13.6 % (11.6-15.6); WHITE BLOOD COUNT 13.6 K/mm3 (4.0-10.0)
[2016-07-12 07:54] LABS: CALCIUM 8.3 mg/dL (8.5-10.1); COCKROFT - GAULT 172.499; CREATININE 0.3 mg/dL (0.55-1.02); MAGNESIUM 1.9 mg/dL (1.8-2.4); PHOSPHOROUS 3.3 mg/dL (2.5-4.9)
--- NOTE | 2016-07-12 09:41 | PN ---
Progress Note (short form) - Note Progress Note: Surgery- Dr. Olivas Patient seen and examined. Patient states she continues to feel well. She is tolerating her diet, urinating without issue, ostomy is functioning, and she is ambulating in the hallways. 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
--- NOTE | 2016-07-12 10:11 | PN ---
Progress Note, Physician History of Present Illness: patient doing much better no new issues dressing removed wound looked at clean packing in - Current Medication List Current Medications: Active Medications Acetaminophen (Tylenol -) 650 mg PO Q4H PRN PRN Reason: FEVER OR PAIN Last Admin: 07/12/16 01:54 Dose: 650 mg Hydralazine HCl (Apresoline Injection -) 5 mg IM Q6H PRN PRN Reason: HYPERTENSION Last Admin: 06/28/16 13:31 Dose: 5 mg Piperacillin Sod/Tazobactam Sod (Zosyn 3.375gm Ivpb (Pre-Docked)) 50 mls @ 100 mls/hr IVPB Q8H-IV RAVINDER PRN Reason: Protocol Last Admin: 07/12/16 02:55 Dose: 100 mls/hr Ondansetron HCl (Zofran -) 4 mg PO Q4H PRN Last Admin: 07/11/16 21:08 Dose: 4 mg Pantoprazole Sodium (Protonix -) 40 mg PO DAILY [facility] Last Admin: 07/11/16 11:59 Dose: 40 mg Timolol Maleate (Timoptic 0.5%) 2 drop OU BID RAVINDER Last Admin: 07/11/16 21:08 Dose: 2 drop - Objective Vital Signs: Vital Signs Temperature 98.6 F 07/12/16 05:51 Pulse Rate 85 07/12/16 05:51 Respiratory Rate 20 07/12/16 05:51 Blood Pressure 138/76 07/12/16 05:51 O2 Sat by Pulse Oximetry (%) 97 07/11/16 21:00 Constitutional: Yes: No Distress, Calm Cardiovascular: Yes: Regular Rate and Rhythm Respiratory: Yes: Regular, CTA Bilaterally Gastrointestinal: Yes: Normal Bowel Sounds, Soft Musculoskeletal: Yes: WNL Extremities: Yes: WNL Wound/Incision: Yes: Dressing Dry and Intact, Dressing Removed, Unapproximated, Other Neurological: Yes: Alert, Oriented Psychiatric: Yes: Alert, Oriented Labs: CBC, BMP 07/12/16 06:00 07/12/16 06:00 INR, PTT INR 1.04 (0.82-1.09) 06/21/16 22:11 Assessment/Plan colonic inflammation diverticulitis nausea abd pain diverticular abscess diverticular perforation hartmans procedure leukocytoisis plan continue abx continue to monitor wbc trending down should be able to switch to oral abx tomorrow
[2016-07-12] MEDS ORDERED: PT OWN MED DRAWER 7, Y5N ONE (10:31)
[2016-07-12] MEDS: PANTOPRAZOLE 40 MG TABLET (FP) PO SCH (10:33)
[2016-07-12] MEDS: TIMOLOL 0.5% OPHTHALMIC SOL 5 ML BOTTLE OU SCH ×2 (10:34→21:44)
--- NOTE | 2016-07-12 13:51 | PN ---
Progress Note, Physician Chief Complaint: Ms Lopez says she is doing well. No cp, sob, n/v. Tolerating diet well. - Current Medication List Current Medications: Active Medications Acetaminophen (Tylenol -) 650 mg PO Q4H PRN PRN Reason: FEVER OR PAIN Last Admin: 07/12/16 10:33 Dose: 650 mg Hydralazine HCl (Apresoline Injection -) 5 mg IM Q6H PRN PRN Reason: HYPERTENSION Last Admin: 06/28/16 13:31 Dose: 5 mg Piperacillin Sod/Tazobactam Sod (Zosyn 3.375gm Ivpb (Pre-Docked)) 50 mls @ 100 mls/hr IVPB Q8H-IV RAVINDER PRN Reason: Protocol Last Admin: 07/12/16 10:34 Dose: 100 mls/hr Ondansetron HCl (Zofran -) 4 mg PO Q4H PRN Last Admin: 07/11/16 21:08 Dose: 4 mg Pantoprazole Sodium (Protonix -) 40 mg PO DAILY RAVINDER Last Admin: 07/12/16 10:33 Dose: 40 mg Timolol Maleate (Timoptic 0.5%) 2 drop OU BID RAVINDER Last Admin: 07/12/16 10:34 Dose: 2 drop - Objective Vital Signs: Vital Signs Temperature 98.4 F 07/12/16 10:28 Pulse Rate 98 H 07/12/16 10:28 Respiratory Rate 20 07/12/16 10:28 Blood Pressure 141/84 07/12/16 10:28 O2 Sat by Pulse Oximetry (%) 97 07/12/16 10:00 Constitutional: Yes: Well Nourished, No Distress, Calm Cardiovascular: Yes: Regular Rate and Rhythm. No: Gallop, Murmur, Rub Respiratory: Yes: Regular, CTA Bilaterally. No: Rales, Rhonchi, Wheezes Gastrointestinal: Yes: Normal Bowel Sounds, Soft, Other (colostomy bag in place) . No: Distention, Tenderness Extremities: Yes: WNL Edema: No Labs: CBC, BMP 07/12/16 06:00 07/12/16 06:00 INR, PTT INR 1.04 (0.82-1.09) 06/21/16 22:11 Problem List - Problems (1) Abscess of sigmoid colon due to diverticulitis Code(s): K57.20 - DVTRCLI OF LG INT W PERFORATION AND ABSCESS W/O BLEEDING (2) Hyperlipidemia Code(s): E78.5 - HYPERLIPIDEMIA, UNSPECIFIED (3) Hypertension Code(s): I10 - ESSENTIAL (PRIMARY) HYPERTENSION (4) Sepsis Code(s): A41.9 - SEPSIS, UNSPECIFIED ORGANISM Qualifiers: Sepsis type: Escherichia coli Qualified Code(s): A41.51 - Sepsis due to Escherichia coli [E. coli] (5) Anxiety Code(s): F41.9 - ANXIETY DISORDER, UNSPECIFIED Assessment/Plan (1) Abscess of sigmoid colon due to diverticulitis Assessment/Plan: -colostomy bag in place and working -continue IV antibiotics, plan to change to oral antibiotics tomorrow -surgery following -plan to discharge home with VNS Code(s): K57.20 - DVTRCLI OF LG INT W PERFORATION AND ABSCESS W/O BLEEDING (2) Hypertension Assessment/Plan: -well controlled Code(s): I10 - ESSENTIAL (PRIMARY) HYPERTENSION (3) Hyperlipidemia -holding medications currently -restart on discharge Code(s): E78.5 - HYPERLIPIDEMIA, UNSPECIFIED (4) Sepsis -appreciate ID assistance -continue zosyn, change to oral antibiotics tomorrow -monitor on oral antibiotics over the weekend -if oral antibiotics effective, plan for discharge early next week (5) Anxiety -avoid anxiolytics as causes somnolence in patient -however anxiety is much improved currently
[2016-07-12] MEDS: ONDANSETRON 4 MG TABLET PO PRN ×2 (18:08→23:32)
[2016-07-13] MEDS: PIPERACILLIN/TAZOB 3.375 GM 50 ML IVPB SCH ×3 (02:32→18:26)
[2016-07-13] MEDS ORDERED: PT OWN MED DRAWER 7, Y5N ONE ×2 (06:07→11:12)
[2016-07-13 07:20] LABS: BASOPHIL 0.4 % (0-2.0); EOSINOPHIL 2.1 % (0-4.5); MCH 31.8 pg (25.7-33.7); MCHC 33.3 g/dl (32.0-36.0); MEAN CELL VOLUME 95.7 fl (80-96); NEUTROPHILS 81.3 % (42.8-82.8); PLATELET COUNT 308 K/MM3 (134-434); RDW 13.5 % (11.6-15.6); WHITE BLOOD COUNT 13.2 K/mm3 (4.0-10.0)
[2016-07-13 07:48] LABS: CALCIUM 8.3 mg/dL (8.5-10.1); COCKROFT - GAULT 129.37; CREATININE 0.4 mg/dL (0.55-1.02); MAGNESIUM 1.9 mg/dL (1.8-2.4); PHOSPHOROUS 3.3 mg/dL (2.5-4.9)
[2016-07-13] MEDS: PANTOPRAZOLE 40 MG TABLET (FP) PO SCH (11:33)
[2016-07-13] MEDS: TIMOLOL 0.5% OPHTHALMIC SOL 5 ML BOTTLE OU SCH ×2 (11:33→21:24)
--- NOTE | 2016-07-13 12:07 | PN ---
Progress Note (short form) - Note Progress Note: Denies nausea, vomiting, abdominal pain Afebrile. - Current Medication List Current Medications: Active Medications Acetaminophen (Tylenol -) 650 mg PO Q4H PRN PRN Reason: FEVER OR PAIN Last Admin: 07/12/16 10:33 Dose: 650 mg Hydralazine HCl (Apresoline Injection -) 5 mg IM Q6H PRN PRN Reason: HYPERTENSION Last Admin: 06/28/16 13:31 Dose: 5 mg Piperacillin Sod/Tazobactam Sod (Zosyn 3.375gm Ivpb (Pre-Docked)) 50 mls @ 100 mls/hr IVPB Q8H-IV RAVINDER PRN Reason: Protocol Last Admin: 07/12/16 10:34 Dose: 100 mls/hr Ondansetron HCl (Zofran -) 4 mg PO Q4H PRN Last Admin: 07/11/16 21:08 Dose: 4 mg Pantoprazole Sodium (Protonix -) 40 mg PO DAILY RAVINDER Last Admin: 07/12/16 10:33 Dose: 40 mg Timolol Maleate (Timoptic 0.5%) 2 drop OU BID RAVINDER Last Admin: 07/12/16 10:34 Dose: 2 drop - Objective Vital Signs: Vital Signs Period Temp Pulse Resp BP Sys/[place] Pulse Ox Last 24 Hr 97.3 F-98.9 F 86-100 20-20 121-134/76-76 97 Constitutional: Yes: Well Nourished, No Distress, Calm Cardiovascular: Yes: Regular Rate and Rhythm. No: Gallop, Murmur, Rub Respiratory: Yes: Regular, CTA Bilaterally. No: Rales, Rhonchi, Wheezes Gastrointestinal: Yes: Normal Bowel Sounds, Soft, Other (colostomy bag in place) . No: Distention, Tenderness Extremities: Yes: WNL Edema: No Labs: CBC, BMP 07/13/16 06:25 07/13/16 06:25 Problem List - Problems (1) Abscess of sigmoid colon due to diverticulitis Code(s): K57.20 - DVTRCLI OF LG INT W PERFORATION AND ABSCESS W/O BLEEDING (2) Hyperlipidemia Code(s): E78.5 - HYPERLIPIDEMIA, UNSPECIFIED (3) Hypertension Code(s): I10 - ESSENTIAL (PRIMARY) HYPERTENSION (4) Sepsis Code(s): A41.9 - SEPSIS, UNSPECIFIED ORGANISM Qualifiers: Sepsis type: Escherichia coli Qualified Code(s): A41.51 - Sepsis due to Escherichia coli [E. coli] (5) Anxiety Code(s): F41.9 - ANXIETY DISORDER, UNSPECIFIED Assessment/Plan (1) Abscess of sigmoid colon due to diverticulitis Assessment/Plan: -colostomy bag in place and working -continue IV antibiotics, change to PO per ID -surgery following -plan to discharge home with VNS Code(s): K57.20 - DVTRCLI OF LG INT W PERFORATION AND ABSCESS W/O BLEEDING (2) Hypertension Assessment/Plan: -well controlled Code(s): I10 - ESSENTIAL (PRIMARY) HYPERTENSION (3) Hyperlipidemia -holding medications currently -restart on discharge Code(s): E78.5 - HYPERLIPIDEMIA, UNSPECIFIED (4) Sepsis -appreciate ID assistance -continue zosyn, change to oral antibiotics per ID -monitor on oral antibiotics over the weekend -if oral antibiotics effective, plan for discharge early next week (5) Anxiety -avoid anxiolytics as causes somnolence in patient -however anxiety is much improved currently Problem List - Problems (1) Abscess of sigmoid colon due to diverticulitis Code(s): K57.20 - DVTRCLI OF LG INT W PERFORATION AND ABSCESS W/O BLEEDING (2) Hypertension Code(s): I10 - ESSENTIAL (PRIMARY) HYPERTENSION (3) Hyperlipidemia Code(s): E78.5 - HYPERLIPIDEMIA, UNSPECIFIED
[2016-07-13] MEDS: ACETAMINOPHEN 325 MG TABLET (FP) PO PRN ×2 (12:14→22:34)
[2016-07-13] MEDS: ONDANSETRON 4 MG TABLET PO PRN ×2 (16:01→22:34)
--- NOTE | 2016-07-13 18:31 | PN ---
Progress Note, Physician History of Present Illness: stable no complaints' family in room - Current Medication List Current Medications: Active Medications Acetaminophen (Tylenol -) 650 mg PO Q4H PRN PRN Reason: FEVER OR PAIN Last Admin: 07/13/16 12:14 Dose: 650 mg Hydralazine HCl (Apresoline Injection -) 5 mg IM Q6H PRN PRN Reason: HYPERTENSION Last Admin: 06/28/16 13:31 Dose: 5 mg Piperacillin Sod/Tazobactam Sod (Zosyn 3.375gm Ivpb (Pre-Docked)) 50 mls @ 100 mls/hr IVPB Q8H-IV RAVINDER PRN Reason: Protocol Last Admin: 07/13/16 18:26 Dose: 100 mls/hr Ondansetron HCl (Zofran -) 4 mg PO Q4H PRN Last Admin: 07/13/16 16:01 Dose: 4 mg Pantoprazole Sodium (Protonix -) 40 mg PO DAILY [facility] Last Admin: 07/13/16 11:33 Dose: 40 mg Timolol Maleate (Timoptic 0.5%) 2 drop OU BID RAVINDER Last Admin: 07/13/16 11:33 Dose: 2 drop - Objective Vital Signs: Vital Signs Temperature 97.9 F 07/13/16 17:59 Pulse Rate 96 H 07/13/16 17:59 Respiratory Rate 20 07/13/16 17:59 Blood Pressure 121/72 07/13/16 17:59 O2 Sat by Pulse Oximetry (%) 98 07/13/16 09:00 Constitutional: Yes: No Distress, Calm Cardiovascular: Yes: Regular Rate and Rhythm Respiratory: Yes: Regular, CTA Bilaterally Gastrointestinal: Yes: Normal Bowel Sounds, Soft, Other (wound noted) Musculoskeletal: Yes: WNL Extremities: Yes: WNL Wound/Incision: Yes: Dressing Dry and Intact Neurological: Yes: Alert, Oriented Psychiatric: Yes: Alert, Oriented Labs: CBC, BMP 07/13/16 06:25 07/13/16 06:25 INR, PTT INR 1.04 (0.82-1.09) 06/21/16 22:11 Assessment/Plan colonic inflammation diverticulitis nausea abd pain diverticular abscess diverticular perforation hartmans procedure leukocytoisis plan continue abx continue to monitor wbc trending down will switch to oral abx tomorrow
[2016-07-14] MEDS: PIPERACILLIN/TAZOB 3.375 GM 50 ML IVPB SCH ×3 (01:59→17:43)
[2016-07-14] MEDS: ONDANSETRON 4 MG TABLET PO PRN ×2 (05:50→17:45)
[2016-07-14] MEDS: ACETAMINOPHEN 325 MG TABLET (FP) PO PRN ×2 (05:50→20:19)
[2016-07-14 08:30] LABS: BASOPHIL 0.7 % (0-2.0); EOSINOPHIL 2.5 % (0-4.5); MCH 31.8 pg (25.7-33.7); MCHC 33.4 g/dl (32.0-36.0); MEAN CELL VOLUME 95.1 fl (80-96); MEAN PLT VOLUME 7.7 fl (7.5-11.1); NEUTROPHILS 77.5 % (42.8-82.8); PLATELET COUNT 348 K/MM3 (134-434); RDW 13.5 % (11.6-15.6); WHITE BLOOD COUNT 12.4 K/mm3 (4.0-10.0)
[2016-07-14 09:03] LABS: ALBUMIN 2.2 g/dl (3.4-5.0); ANION GAP 10 (8-16); CALCIUM 8.2 mg/dL (8.5-10.1); CO2 30 mmol/L (21-32); CREATININE 0.4 mg/dL (0.55-1.02); GLUCOSE,RANDOM 94 mg/dL (74-106); SGOT/AST 20 U/L (15-37); SGPT/ALT 29 U/L (12-78)
[2016-07-14 09:08] LABS: ALK PHOS 88 U/L (45-117); BILIRUBIN,TOTAL 0.3 mg/dL (0.2-1.0); TOT PROT 5.1 g/dl (6.4-8.2)
[2016-07-14] MEDS ORDERED: PT OWN MED DRAWER 7, Y5N ONE (09:18)
[2016-07-14] MEDS: TIMOLOL 0.5% OPHTHALMIC SOL 5 ML BOTTLE OU SCH ×2 (09:20→21:15)
[2016-07-14] MEDS: PANTOPRAZOLE 40 MG TABLET (FP) PO SCH (09:20)
--- NOTE | 2016-07-14 10:55 | PN ---
Progress Note (short form) - Note Progress Note: Patient seen and examined. Denies nausea, vomiting, abdominal pain. Denies chest pain, shortness of breath, palpitation or dizziness. Afebrile. Ambulating with the help of walker Current Medications Acetaminophen (Tylenol -) 650 mg PO Q4H PRN PRN Reason: FEVER OR PAIN Last Admin: 07/14/16 05:50 Dose: 650 mg Hydralazine HCl (Apresoline Injection -) 5 mg IM Q6H PRN PRN Reason: HYPERTENSION Last Admin: 06/28/16 13:31 Dose: 5 mg Piperacillin Sod/Tazobactam Sod (Zosyn 3.375gm Ivpb (Pre-Docked)) 50 mls @ 100 mls/hr IVPB Q8H-IV RAVINDER PRN Reason: Protocol Last Admin: 07/14/16 09:21 Dose: 100 mls/hr Ondansetron HCl (Zofran -) 4 mg PO Q4H PRN Last Admin: 07/14/16 05:50 Dose: 4 mg Pantoprazole Sodium (Protonix -) 40 mg PO DAILY RAVINDER Last Admin: 07/14/16 09:20 Dose: 40 mg Timolol Maleate (Timoptic 0.5%) 2 drop OU BID R[facility]INDER Last Admin: 07/14/16 09:20 Dose: 2 drop - Objective Vital Signs: Vital Signs Period Temp Pulse Resp BP Sys/Heredia Pulse Ox Last 24 Hr 97.9 F-98.6 F 84-96 20-20 101-135/55-81 97 Constitutional: Yes: Well Nourished, No Distress, Calm Cardiovascular: Yes: Regular Rate and Rhythm. No: Gallop, Murmur, Rub Respiratory: Yes: Regular, CTA Bilaterally. No: Rales, Rhonchi, Wheezes Gastrointestinal: Yes: Normal Bowel Sounds, Soft, Other (colostomy bag in place) . No: Distention, Tenderness Extremities: Yes: WNL Edema: No Labs: CBC, BMP 07/14/16 05:40 07/14/16 05:40 Problem List - Problems (1) Abscess of sigmoid colon due to diverticulitis Code(s): K57.20 - DVTRCLI OF LG INT W PERFORATION AND ABSCESS W/O BLEEDING (2) Hyperlipidemia Code(s): E78.5 - HYPERLIPIDEMIA, UNSPECIFIED (3) Hypertension Code(s): I10 - ESSENTIAL (PRIMARY) HYPERTENSION (4) Sepsis Code(s): A41.9 - SEPSIS, UNSPECIFIED ORGANISM Qualifiers: Sepsis type: Escherichia coli Qualified Code(s): A41.51 - Sepsis due to Escherichia coli [E. coli] (5) Anxiety Code(s): F41.9 - ANXIETY DISORDER, UNSPECIFIED Assessment/Plan (1) Abscess of sigmoid colon due to diverticulitis Assessment/Plan: -colostomy bag in place and working -continue IV antibiotics, change to PO per ID -surgery following -plan to discharge home with VNS Code(s): K57.20 - DVTRCLI OF LG INT W PERFORATION AND ABSCESS W/O BLEEDING (2) Hypertension Assessment/Plan: -well controlled Code(s): I10 - ESSENTIAL (PRIMARY) HYPERTENSION (3) Hyperlipidemia -holding medications currently -restart on discharge Code(s): E78.5 - HYPERLIPIDEMIA, UNSPECIFIED (4) Sepsis Wbc improving -appreciate ID assistance -continue zosyn, change to oral antibiotics per ID. Maybe tomorrow. -if oral antibiotics effective, plan for discharge early next week (5) Anxiety -avoid anxiolytics as causes somnolence in patient -however anxiety is much improved currently WBC trending down nicely. Anticipate discharge in next 24-48 hrs. Problem List - Problems (1) Abscess of sigmoid colon due to diverticulitis Code(s): K57.20 - DVTRCLI OF LG INT W PERFORATION AND ABSCESS W/O BLEEDING (2) Hypertension Code(s): I10 - ESSENTIAL (PRIMARY) HYPERTENSION (3) Hyperlipidemia Code(s): E78.5 - HYPERLIPIDEMIA, UNSPECIFIED
--- NOTE | 2016-07-14 12:01 | PN ---
Progress Note, Physician History of Present Illness: patient doing well no issues feels much better - Current Medication List Current Medications: Active Medications Acetaminophen (Tylenol -) 650 mg PO Q4H PRN PRN Reason: FEVER OR PAIN Last Admin: 07/14/16 05:50 Dose: 650 mg Hydralazine HCl (Apresoline Injection -) 5 mg IM Q6H PRN PRN Reason: HYPERTENSION Last Admin: 06/28/16 13:31 Dose: 5 mg Piperacillin Sod/Tazobactam Sod (Zosyn 3.375gm Ivpb (Pre-Docked)) 50 mls @ 100 mls/hr IVPB Q8H-IV RAVINDER PRN Reason: Protocol Last Admin: 07/14/16 09:21 Dose: 100 mls/hr Ondansetron HCl (Zofran -) 4 mg PO Q4H PRN Last Admin: 07/14/16 05:50 Dose: 4 mg Pantoprazole Sodium (Protonix -) 40 mg PO DAILY [facility] Last Admin: 07/14/16 09:20 Dose: 40 mg Timolol Maleate (Timoptic 0.5%) 2 drop OU BID RAVINDER Last Admin: 07/14/16 09:20 Dose: 2 drop - Objective Vital Signs: Vital Signs Temperature 98 F 07/14/16 11:00 Pulse Rate 102 H 07/14/16 11:00 Respiratory Rate 18 07/14/16 11:00 Blood Pressure 112/79 07/14/16 11:00 O2 Sat by Pulse Oximetry (%) 97 07/13/16 20:27 Constitutional: Yes: No Distress, Calm Neck: Yes: Supple Cardiovascular: Yes: Regular Rate and Rhythm Respiratory: Yes: Regular, CTA Bilaterally Gastrointestinal: Yes: Normal Bowel Sounds, Soft Musculoskeletal: Yes: WNL Extremities: Yes: WNL Integumentary: Yes: Other (wounds healing well) Wound/Incision: Yes: Dressing Dry and Intact, Other Neurological: Yes: Alert, Oriented Psychiatric: Yes: Alert, Oriented Labs: CBC, BMP 07/14/16 05:40 07/14/16 05:40 INR, PTT INR 1.04 (0.82-1.09) 06/21/16 22:11 Assessment/Plan colonic inflammation diverticulitis nausea abd pain diverticular abscess diverticular perforation hartmans procedure leukocytoisis plan continue abx continue to monitor wbc trending down will switch to oral abx ttoday from evening
[2016-07-15] MEDS: ONDANSETRON 4 MG TABLET PO PRN ×4 (02:23→21:59)
[2016-07-15] MEDS: ACETAMINOPHEN 325 MG TABLET (FP) PO PRN ×4 (02:23→21:59)
[2016-07-15] MEDS: PIPERACILLIN/TAZOB 3.375 GM 50 ML IVPB SCH ×2 (02:58→10:29)
[2016-07-15 08:08] LABS: BASOPHIL 0.3 % (0-2.0); EOSINOPHIL 3.8 % (0-4.5); MCH 31.8 pg (25.7-33.7); MCHC 33.4 g/dl (32.0-36.0); MEAN CELL VOLUME 95.3 fl (80-96); MEAN PLT VOLUME 7.4 fl (7.5-11.1); NEUTROPHILS 76.9 % (42.8-82.8); PLATELET COUNT 352 K/MM3 (134-434); RDW 13.6 % (11.6-15.6); WHITE BLOOD COUNT 10.3 K/mm3 (4.0-10.0)
[2016-07-15 08:38] LABS: ALBUMIN 2.2 g/dl (3.4-5.0); ANION GAP 8 (8-16); CALCIUM 8.6 mg/dL (8.5-10.1); CO2 30 mmol/L (21-32); GLUCOSE,RANDOM 98 mg/dL (74-106)
[2016-07-15 08:43] LABS: ALK PHOS 82 U/L (45-117); BILIRUBIN,TOTAL 0.3 mg/dL (0.2-1.0); CREATININE 0.4 mg/dL (0.55-1.02); SGOT/AST 25 U/L (15-37); SGPT/ALT 26 U/L (12-78); TOT PROT 4.9 g/dl (6.4-8.2)
[2016-07-15] MEDS ORDERED: PT OWN MED DRAWER 7, Y5N ONE ×2 (10:21→21:16)
[2016-07-15] MEDS: PANTOPRAZOLE 40 MG TABLET (FP) PO SCH (10:31)
[2016-07-15] MEDS: TIMOLOL 0.5% OPHTHALMIC SOL 5 ML BOTTLE OU SCH ×2 (10:31→21:18)
--- NOTE | 2016-07-15 13:22 | PN ---
Progress Note, Physician Chief Complaint: Ms Lopez says she feels well. No cp, sob, n/v. - Current Medication List Current Medications: Active Medications Acetaminophen (Tylenol -) 650 mg PO Q4H PRN PRN Reason: FEVER OR PAIN Last Admin: 07/15/16 07:20 Dose: 650 mg Amoxicillin/Clavulanate Potassium (Augmentin - 875mg Tablet) 1 tab PO BID@0800, 1730 [facility] Hydralazine HCl (Apresoline Injection -) 5 mg IM Q6H PRN PRN Reason: HYPERTENSION Last Admin: 06/28/16 13:31 Dose: 5 mg Ondansetron HCl (Zofran -) 4 mg PO Q4H PRN Last Admin: 07/15/16 07:20 Dose: 4 mg Pantoprazole Sodium (Protonix -) 40 mg PO DAILY [facility] Last Admin: 07/15/16 10:31 Dose: 40 mg Timolol Maleate (Timoptic 0.5%) 2 drop OU BID [facility] Last Admin: 07/15/16 10:31 Dose: 2 drop - Objective Vital Signs: Vital Signs Temperature 97.8 F 07/15/16 10:00 Pulse Rate 94 H 07/15/16 10:00 Respiratory Rate 20 07/15/16 10:00 Blood Pressure 96/71 07/15/16 10:00 O2 Sat by Pulse Oximetry (%) 98 07/14/16 21:00 Constitutional: Yes: Well Nourished, No Distress, Calm Cardiovascular: Yes: Regular Rate and Rhythm. No: Gallop, Murmur, Rub Respiratory: Yes: Regular, CTA Bilaterally. No: Rales, Rhonchi, Wheezes Gastrointestinal: Yes: Normal Bowel Sounds, Soft. No: Distention, Tenderness Extremities: Yes: WNL Edema: No Labs: CBC, BMP 07/15/16 07:10 07/15/16 07:10 INR, PTT INR 1.04 (0.82-1.09) 06/21/16 22:11 Problem List - Problems (1) Abscess of sigmoid colon due to diverticulitis Code(s): K57.20 - DVTRCLI OF LG INT W PERFORATION AND ABSCESS W/O BLEEDING (2) Hyperlipidemia Code(s): E78.5 - HYPERLIPIDEMIA, UNSPECIFIED (3) Hypertension Code(s): I10 - ESSENTIAL (PRIMARY) HYPERTENSION (4) Sepsis Code(s): A41.9 - SEPSIS, UNSPECIFIED ORGANISM Qualifiers: Sepsis type: Escherichia coli Qualified Code(s): A41.51 - Sepsis due to Escherichia coli [E. coli] (5) Anxiety Code(s): F41.9 - ANXIETY DISORDER, UNSPECIFIED Assessment/Plan (1) Abscess of sigmoid colon due to diverticulitis Assessment/Plan: -colostomy bag in place and working -continue IV antibiotics, plan to change to oral antibiotics tomorrow -surgery following -plan to discharge home with VNS Code(s): K57.20 - DVTRCLI OF LG INT W PERFORATION AND ABSCESS W/O BLEEDING (2) Hypertension Assessment/Plan: -well controlled Code(s): I10 - ESSENTIAL (PRIMARY) HYPERTENSION (3) Hyperlipidemia -holding medications currently -restart on discharge Code(s): E78.5 - HYPERLIPIDEMIA, UNSPECIFIED (4) Sepsis -case d/w ID -change to augmentin -monitor today, if tolerates and WBC remains stable can discharge home tomorrow (5) Anxiety -avoid anxiolytics as causes somnolence in patient -however anxiety is much improved currently
--- NOTE | 2016-07-15 17:09 | PN ---
Progress Note, Physician History of Present Illness: patient doing well no issues wound looked at looks good dsg done - Current Medication List Current Medications: Active Medications Acetaminophen (Tylenol -) 650 mg PO Q4H PRN PRN Reason: FEVER OR PAIN Last Admin: 07/15/16 07:20 Dose: 650 mg Amoxicillin/Clavulanate Potassium (Augmentin - 875mg Tablet) 1 tab PO BID@0800, 1730 [facility] Hydralazine HCl (Apresoline Injection -) 5 mg IM Q6H PRN PRN Reason: HYPERTENSION Last Admin: 06/28/16 13:31 Dose: 5 mg Ondansetron HCl (Zofran -) 4 mg PO Q4H PRN Last Admin: 07/15/16 07:20 Dose: 4 mg Pantoprazole Sodium (Protonix -) 40 mg PO DAILY [facility] Last Admin: 07/15/16 10:31 Dose: 40 mg Timolol Maleate (Timoptic 0.5%) 2 drop OU BID [facility] Last Admin: 07/15/16 10:31 Dose: 2 drop - Objective Vital Signs: Vital Signs Temperature 97.8 F 07/15/16 10:00 Pulse Rate 94 H 07/15/16 10:00 Respiratory Rate 20 07/15/16 10:00 Blood Pressure 96/71 07/15/16 10:00 O2 Sat by Pulse Oximetry (%) 98 07/14/16 21:00 Constitutional: Yes: No Distress, Calm Cardiovascular: Yes: Regular Rate and Rhythm Respiratory: Yes: Regular, CTA Bilaterally Gastrointestinal: Yes: Normal Bowel Sounds, Soft Musculoskeletal: Yes: WNL Extremities: Yes: WNL Integumentary: Yes: Other Wound/Incision: Yes: Dressing Dry and Intact Neurological: Yes: Alert, Oriented Psychiatric: Yes: Alert, Oriented Labs: CBC, BMP 07/15/16 07:10 07/15/16 07:10 INR, PTT INR 1.04 (0.82-1.09) 06/21/16 22:11 Assessment/Plan colonic inflammation diverticulitis nausea abd pain diverticular abscess diverticular perforation hartmans procedure leukocytoisis plan wbc near normal can switch to oral abx as discussed to be given for another 5 days wound care rest as per primary
[2016-07-15] MEDS: AMOX TR/POT CLAV 875MG/125MG TABLETS (FP) PO SCH (17:22)
[2016-07-16] MEDS: ONDANSETRON 4 MG TABLET PO PRN ×5 (01:55→21:47)
[2016-07-16 07:26] LABS: BASOPHIL 0.4 % (0-2.0); EOSINOPHIL 4.2 % (0-4.5); MCH 31.9 pg (25.7-33.7); MCHC 33.8 g/dl (32.0-36.0); MEAN CELL VOLUME 94.4 fl (80-96); MEAN PLT VOLUME 7.3 fl (7.5-11.1); PLATELET COUNT 368 K/MM3 (134-434); RDW 13.7 % (11.6-15.6); WHITE BLOOD COUNT 11.2 K/mm3 (4.0-10.0)
[2016-07-16 07:48] LABS: CALCIUM 8.3 mg/dL (8.5-10.1); COCKROFT - GAULT 129.37; CREATININE 0.4 mg/dL (0.55-1.02); MAGNESIUM 1.8 mg/dL (1.8-2.4); PHOSPHOROUS 2.6 mg/dL (2.5-4.9)
[2016-07-16] MEDS: AMOX TR/POT CLAV 875MG/125MG TABLETS (FP) PO SCH ×2 (08:12→17:02)
[2016-07-16] MEDS: TIMOLOL 0.5% OPHTHALMIC SOL 5 ML BOTTLE OU SCH ×2 (09:39→21:45)
[2016-07-16] MEDS: PANTOPRAZOLE 40 MG TABLET (FP) PO SCH (09:39)
--- NOTE | 2016-07-16 15:26 | PN ---
Progress Note, Physician Chief Complaint: Ms Lopez says she feels well. No cp, sob, n/v. - Current Medication List Current Medications: Active Medications Acetaminophen (Tylenol -) 650 mg PO Q4H PRN PRN Reason: FEVER OR PAIN Last Admin: 07/15/16 21:59 Dose: 650 mg Amoxicillin/Clavulanate Potassium (Augmentin - 875mg Tablet) 1 tab PO BID@0800, 1730 [facility] Last Admin: 07/16/16 08:12 Dose: 1 tab Hydralazine HCl (Apresoline Injection -) 5 mg IM Q6H PRN PRN Reason: HYPERTENSION Last Admin: 06/28/16 13:31 Dose: 5 mg Ondansetron HCl (Zofran -) 4 mg PO Q4H PRN Last Admin: 07/16/16 12:06 Dose: 4 mg Pantoprazole Sodium (Protonix -) 40 mg PO DAILY [facility] Last Admin: 07/16/16 09:39 Dose: 40 mg Timolol Maleate (Timoptic 0.5%) 2 drop OU BID [facility] Last Admin: 07/16/16 09:39 Dose: 2 drop - Objective Vital Signs: Vital Signs Temperature 98.8 F 07/16/16 08:51 Pulse Rate 89 07/16/16 08:51 Respiratory Rate 18 07/16/16 08:51 Blood Pressure 120/60 07/16/16 08:51 O2 Sat by Pulse Oximetry (%) 98 07/16/16 09:00 Constitutional: Yes: Well Nourished, No Distress, Calm Cardiovascular: Yes: Regular Rate and Rhythm. No: Gallop, Murmur, Rub Respiratory: Yes: Regular, CTA Bilaterally. No: Rales, Rhonchi, Wheezes Gastrointestinal: Yes: Normal Bowel Sounds, Soft. No: Distention, Tenderness Extremities: Yes: WNL Edema: No Labs: CBC, BMP 07/16/16 06:25 07/16/16 06:25 INR, PTT INR 1.04 (0.82-1.09) 06/21/16 22:11 Problem List - Problems (1) Abscess of sigmoid colon due to diverticulitis Code(s): K57.20 - DVTRCLI OF LG INT W PERFORATION AND ABSCESS W/O BLEEDING (2) Hyperlipidemia Code(s): E78.5 - HYPERLIPIDEMIA, UNSPECIFIED (3) Hypertension Code(s): I10 - ESSENTIAL (PRIMARY) HYPERTENSION (4) Sepsis Code(s): A41.9 - SEPSIS, UNSPECIFIED ORGANISM Qualifiers: Sepsis type: Escherichia coli Qualified Code(s): A41.51 - Sepsis due to Escherichia coli [E. coli] (5) Anxiety Code(s): F41.9 - ANXIETY DISORDER, UNSPECIFIED Assessment/Plan (1) Abscess of sigmoid colon due to diverticulitis Assessment/Plan: -colostomy bag in place and working -continue IV antibiotics, plan to change to oral antibiotics tomorrow -surgery following -plan to discharge home with VNS Code(s): K57.20 - DVTRCLI OF LG INT W PERFORATION AND ABSCESS W/O BLEEDING (2) Hypertension Assessment/Plan: -well controlled Code(s): I10 - ESSENTIAL (PRIMARY) HYPERTENSION (3) Hyperlipidemia -holding medications currently -restart on discharge Code(s): E78.5 - HYPERLIPIDEMIA, UNSPECIFIED (4) Sepsis -case d/w ID -on augmentin, but WBC increased -recheck in am, may need fluid collection to be drained (5) Anxiety -avoid anxiolytics as causes somnolence in patient -however anxiety is much improved currently
[2016-07-16] MEDS ORDERED: PT OWN MED DRAWER 7, Y5N ONE (21:03)
--- NOTE | 2016-07-16 22:12 | PN ---
Progress Note, Physician History of Present Illness: clinically patient looks good tolerating oral abx the wbc though has started to increase which is worrisome - Current Medication List Current Medications: Active Medications Acetaminophen (Tylenol -) 650 mg PO Q4H PRN PRN Reason: FEVER OR PAIN Last Admin: 07/15/16 21:59 Dose: 650 mg Amoxicillin/Clavulanate Potassium (Augmentin - 875mg Tablet) 1 tab PO BID@0800, 1730 [facility] Last Admin: 07/16/16 17:02 Dose: 1 tab Hydralazine HCl (Apresoline Injection -) 5 mg IM Q6H PRN PRN Reason: HYPERTENSION Last Admin: 06/28/16 13:31 Dose: 5 mg Ondansetron HCl (Zofran -) 4 mg PO Q4H PRN Last Admin: 07/16/16 21:47 Dose: 4 mg Pantoprazole Sodium (Protonix -) 40 mg PO DAILY [facility] Last Admin: 07/16/16 09:39 Dose: 40 mg Timolol Maleate (Timoptic 0.5%) 2 drop OU BID [facility] Last Admin: 07/16/16 21:45 Dose: 2 drop - Objective Vital Signs: Vital Signs Temperature 97.7 F 07/16/16 18:00 Pulse Rate 97 H 07/16/16 18:00 Respiratory Rate 20 07/16/16 18:00 Blood Pressure 122/80 07/16/16 18:00 O2 Sat by Pulse Oximetry (%) 98 07/16/16 09:00 Constitutional: Yes: No Distress, Calm Neck: Yes: Supple Cardiovascular: Yes: Regular Rate and Rhythm Respiratory: Yes: Regular, CTA Bilaterally Gastrointestinal: Yes: Normal Bowel Sounds, Soft, Other Musculoskeletal: Yes: WNL Extremities: Yes: WNL Wound/Incision: Yes: Clean/Dry, Dressing Dry and Intact Neurological: Yes: Alert, Oriented Psychiatric: Yes: Alert, Oriented Labs: CBC, BMP 07/16/16 06:25 07/16/16 06:25 INR, PTT INR 1.04 (0.82-1.09) 06/21/16 22:11 Assessment/Plan colonic inflammation diverticulitis nausea abd pain diverticular abscess diverticular perforation hartmans procedure leukocytoisis plan wbc increasing continue oral abx wound care if wbc continues to increase then the collection seen initially in the pelvis might have to be relooked at and iv abx might need to be started
[2016-07-17] MEDS: AMOX TR/POT CLAV 875MG/125MG TABLETS (FP) PO SCH ×2 (07:51→17:19)
[2016-07-17] MEDS: ONDANSETRON 4 MG TABLET PO PRN ×2 (07:51→12:04)
[2016-07-17 08:00] LABS: BASOPHIL 0.6 % (0-2.0); EOSINOPHIL 4.2 % (0-4.5); MCH 31.6 pg (25.7-33.7); MEAN CELL VOLUME 95.7 fl (80-96); MEAN PLT VOLUME 7.2 fl (7.5-11.1); NEUTROPHILS 73.2 % (42.8-82.8); PLATELET COUNT 390 K/MM3 (134-434); RDW 13.5 % (11.6-15.6); WHITE BLOOD COUNT 10.5 K/mm3 (4.0-10.0)
[2016-07-17] MEDS ORDERED: PT OWN MED DRAWER 7, Y5N ONE ×2 (09:06→17:57)
[2016-07-17] MEDS: PANTOPRAZOLE 40 MG TABLET (FP) PO SCH (09:09)
[2016-07-17] MEDS: TIMOLOL 0.5% OPHTHALMIC SOL 5 ML BOTTLE OU SCH (09:09)
--- NOTE | 2016-07-17 11:57 | DS ---
Physical Examination Vital Signs: Vital Signs Temperature 99.5 F 07/17/16 09:00 Pulse Rate 103 H 07/17/16 09:00 Respiratory Rate 20 07/17/16 09:00 Blood Pressure 114/64 07/17/16 09:00 O2 Sat by Pulse Oximetry (%) 98 07/16/16 21:00 Constitutional: Yes: Well Nourished, No Distress, Calm Cardiovascular: Yes: Regular Rate and Rhythm. No: Gallop, Murmur, Rub Respiratory: Yes: Regular, CTA Bilaterally. No: Rales, Rhonchi, Wheezes Gastrointestinal: Yes: Normal Bowel Sounds, Soft. No: Distention, Tenderness Extremities: Yes: WNL Edema: No Labs: CBC, BMP 07/17/16 06:30 07/16/16 06:25 Discharge Summary Reason For Visit: PERFORATED SIGMOID COLON Current Active Problems Abscess of sigmoid colon due to diverticulitis (Acute) Anxiety (Acute) Hyperlipidemia (Acute) Hypertension (Acute) Perforated sigmoid colon (Acute) Sepsis (Acute) Sigmoiditis (Acute) Hospital Course: (1) Abscess of sigmoid colon due to diverticulitis Code(s): K57.20 - DVTRCLI OF LG INT W PERFORATION AND ABSCESS W/O BLEEDING (2) Hyperlipidemia Code(s): E78.5 - HYPERLIPIDEMIA, UNSPECIFIED (3) Hypertension Code(s): I10 - ESSENTIAL (PRIMARY) HYPERTENSION (4) Sepsis Code(s): A41.9 - SEPSIS, UNSPECIFIED ORGANISM Qualifiers: Sepsis type: Escherichia coli Qualified Code(s): A41.51 - Sepsis due to Escherichia coli [E. coli] (5) Anxiety Code(s): F41.9 - ANXIETY DISORDER, UNSPECIFIED Ms Lopez is a very pleasant 76 year old female who came in with diverticulitis complicated by abscess of her sigmoid colon. She was admitted to the hospital and seen by surgery and ID. She was started on broad spectrum IV antibiotics and underwent surgery. She tolerated the surgery and began to improve. She was transitioned over to oral antibiotics and became septic again. She was placed back on IV zosyn and again improved. This time though she began to feel much better as well. She was continued on IV antibiotics, and since she failed oral the first time she was placed on oral and monitored in the hospital to make sure she tolerated it. She did well on oral antibiotics and is safe for discharge home with VNS. 35 minutes spent in preparation of this discharge Condition: Good - Instructions Diet, Activity, Other Instructions: resume previous diet and activity Referrals: Kalpesh Olivas MD [Staff Physician] - Christian Murrieta MD [Staff Physician] - Lg Pisano MD [Staff Physician] - Disposition: VNS/HOME HEALTH CARE - Home Medications Comprehensive Discharge Medication List: Ambulatory Orders Ezetimibe [Zetia] 10 mg PO HS 01/14/14 Montelukast Na [Singulair -] 10 mg PO HS 01/14/14 Multivitamins [Multivit ([facility] Formulary)] 1 tab PO DAILY 01/14/14 Valsartan [Diovan] 80 mg PO DAILY 01/14/14 Ranitidine [Zantac -] 150 mg PO BID 12/06/14 Timolol [Betimol] 2 drop OU BID 06/21/16 Amox-Tr/K Cl [Augmentin 875-125mg Tablet -] 1 tab PO BID@0800,1730 #20 tablet
--- NOTE | 2016-07-17 11:57 | PN ---
Progress Note, Physician History of Present Illness: patient doing well no complaints - Current Medication List Current Medications: Active Medications Acetaminophen (Tylenol -) 650 mg PO Q4H PRN PRN Reason: FEVER OR PAIN Last Admin: 07/15/16 21:59 Dose: 650 mg Amoxicillin/Clavulanate Potassium (Augmentin - 875mg Tablet) 1 tab PO BID@0800, 1730 [facility] Last Admin: 07/17/16 07:51 Dose: 1 tab Hydralazine HCl (Apresoline Injection -) 5 mg IM Q6H PRN PRN Reason: HYPERTENSION Last Admin: 06/28/16 13:31 Dose: 5 mg Ondansetron HCl (Zofran -) 4 mg PO Q4H PRN Last Admin: 07/17/16 07:51 Dose: 4 mg Pantoprazole Sodium (Protonix -) 40 mg PO DAILY [facility] Last Admin: 07/17/16 09:09 Dose: 40 mg Timolol Maleate (Timoptic 0.5%) 2 drop OU BID [facility] Last Admin: 07/17/16 09:09 Dose: 2 drop - Objective Vital Signs: Vital Signs Temperature 99.5 F 07/17/16 09:00 Pulse Rate 103 H 07/17/16 09:00 Respiratory Rate 20 07/17/16 09:00 Blood Pressure 114/64 07/17/16 09:00 O2 Sat by Pulse Oximetry (%) 98 07/16/16 21:00 Constitutional: Yes: No Distress, Calm Cardiovascular: Yes: Regular Rate and Rhythm Respiratory: Yes: Regular, CTA Bilaterally Gastrointestinal: Yes: Normal Bowel Sounds, Soft Musculoskeletal: Yes: WNL Extremities: Yes: WNL Integumentary: Yes: Other Wound/Incision: Yes: Dressing Dry and Intact Psychiatric: Yes: Alert, Oriented Labs: CBC, BMP 07/17/16 06:30 07/16/16 06:25 INR, PTT INR 1.04 (0.82-1.09) 06/21/16 22:11 Assessment/Plan colonic inflammation diverticulitis nausea abd pain diverticular abscess diverticular perforation hartmans procedure leukocytoisis plan wbc has decreased continue oral abx wound care icontinue abx for 10 more days follow wbc as out patient
[2016-07-17 15:59] VITALS: BP 119/67; PULSE 93; TEMP 98
== END 2016-07-17 18:12 | disposition home health service (06) | DRG 854 ==
LOC: JER 21:06 → JERBED 06-22 02:50 → J6S 06-22 04:06
PROVIDERS: ADMIT Internal Medicine Geriatric Medicine; ATTEND Internal Medicine Geriatric Medicine
PROC: 0D1N0Z4 Bypass Sigmoid Colon to Cutaneous, Open Approach (ICD-10-PCS; 2016-06-25)
PROC: 0J9C0ZX Drainage of Pelvic Region Subcutaneous Tissue and Fascia, Open Approach, Diagnostic (ICD-10-PCS; 2016-06-25)
PROC: 0DBN0ZZ Excision of Sigmoid Colon, Open Approach (ICD-10-PCS; principal; 2016-06-25 12:00)
DX: A41.51 Sepsis due to Escherichia coli [E. coli] (principal); K57.20 Diverticulitis of large intestine with perforation and abscess without bleeding; J90 Pleural effusion, not elsewhere classified; J98.11 Atelectasis; I25.10 Atherosclerotic heart disease of native coronary artery without angina pectoris; E78.5 Hyperlipidemia, unspecified; M48.00 Spinal stenosis, site unspecified; H40.9 Unspecified glaucoma; N73.8 Other specified female pelvic inflammatory diseases; F41.9 Anxiety disorder, unspecified; I25.2 Old myocardial infarction; K29.60 Other gastritis without bleeding; K44.9 Diaphragmatic hernia without obstruction or gangrene
CPT/HCPCS: 36415; 71010-TC; 71250-TC; 74020-TC; 74176-TC; 74177-TC; 76705-TC; 80048; 80053; 80076; 81003; 81015; 82977; 83605; 83735; 83880; 84100; 85025; 85027; 85610; 86140; 86850; 86900; 86901; 87040; 87070; 87075; 87086; 87186; 87205; 88307-TC; 93005; 93010; 94010; 94760; 97116-GP; 97161-GP; 99283-25; J1644; Q9967